=== PATIENT | male | born 1990 | race Caucasian/White ===

== ENCOUNTER → 2018-02-13 14:41 | Outpatient (CLI) | payer MEDICAID, SELFPAY ==
[2018-02-13 15:22] LABS: Absolute Lymphocyte Count 3.15 X10^3/ul (0.83-4.51); Absolute Neutrophil Count 3.2 X10^3/uL (2.0-7.7); Basophil# 0.01 X10^3/uL; Basophil% 0.1 % (0-1); Eosinophil# 0.17 X10^3/uL; Eosinophils% 2.3 % (0-5); Hemoglobin 14.8 g/dl (13.0-16.5); Lymphocyte # 3.15 X10^3/ul (4.0); Lymphocyte % 42.5 % (19-41); Mean Corp Hgb Conc 33.6 g/gl (32-36); Mean Corpuscular Hgb 30.6 pg (27.0-32.0); Mean Corpuscular Volume 90.9 fL (80-94); Mean Platelet Vol. 9.4 fl (6.2-12.0); Monocyte# 0.93 X10^3/uL; Monocyte% 12.5 % (0-10); Neutrophil # 3.15 X10^3/uL (2.7-7.7); Neutrophil % 42.5 % (47-70); Platelet Count 186 K/mm3 (150-450); RBC Distribution Width CV 13.1 % (11.6-14.6); RBC Distribution Width SD 43.2 fl (35.1-43.9); Red Blood Count 4.84 M/mm3 (4.6-6.2); White Blood Count 7.4 K/mm3 (4.4-11.0)
[2018-02-13 15:26] LABS: POSITIVE COUNT NO; POSITIVE DIFFERENTIAL NO; POSITIVE MORPHOLOGY NO
[2018-02-13 16:02] LABS: ALB/GLOB Ratio 1.1 RATIO (0.9-2.4); AST(SGOT) 28 U/L (15-37); Alanine Aminotransfer ALT/SGPT 42 U/L (16-61); Alkaline Phosphatase 79 U/L (45-117); Anion Gap 8 (5-15); BUN 20 mg/dL (7-18); BUN/Creat Ratio 26.9 RATIO (10-20); Calcium,Total 8.7 mg/dL (8.5-10.1); Chloride 103 mmol/L (98-107); Creatinine, Serum 0.74 mg/dL (0.70-1.30); EST Glomerular Filtration Rate 135 mL/min (>60); Est Glom Filt Rate - Afr Amer 164 mL/min (>60); Globulin 3.7 g/dL (2.2-4.2); Glucose 99 mg/dL (74-106); Potassium 3.9 mmol/L (3.5-5.1); Protein, Total 7.7 g/dL (6.4-8.2); Sodium Level 139 mmol/L (136-145); Thyroid Stim Hormone (TSH) 1.19 uIU/mL (0.358-3.74)
[2018-02-16 11:22] LABS: Hep C Antibodies 0.1 s/co ratio (0.0-0.9)
== END ==
LOC: LABSURVEY 15:09 → LAB 15:11
PROVIDERS: Family Provider Internal Medicine; PCP Internal Medicine; Visit Provider Nurse Practitioner Family
DX: Z13.0 Encounter for screening for diseases of the blood and blood-forming organs and certain disorders involving the immune mechanism (principal); F41.9 Anxiety disorder, unspecified; Z87.898 Personal history of other specified conditions
CPT/HCPCS: 36415; 80053; 84443; 85025; 86803

== ENCOUNTER → 2018-04-17 14:00 | Outpatient (CLI) | payer MEDICAID, SELFPAY ==
[2018-04-18 11:08] LABS: Color, Urine Yellow (Yellow); Glucose, Dipstick Normal (Normal); Ketone-Dipstick 5 mg/dl (Negative); Leukocyte Esterase-Dipstick 25 /ul (Negative); Nitrite-Dipstick Negative (Negative); Occult Blood-Urine 10 /ul (Negative); Protein-Dipstick 15 mg/dl (Negative); Urine Clarity Turbid (Clear); Urine Urobilinogen 8 mg/dl (Normal)
[2018-04-18 11:10] LABS: Urine Bilirubin Dipstick 1 mg/dL (Negative)
[2018-04-18 11:18] LABS: Amorphous Sediment 4+; Bacteria 0 SEEN /hpf (None Seen); Mucous, Urine 0 SEEN /hpf (<or=2+); Red Blood Cells-Urine 0 SEEN /hpf (0-5); Squamous Epithelial Cells - UA 0 SEEN /hpf (0-5); White Blood Cells 0 SEEN /hpf (0-5)
== END ==
PROVIDERS: Family Provider Internal Medicine; PCP Internal Medicine; Visit Provider Internal Medicine
DX: R39.89 Other symptoms and signs involving the genitourinary system (principal); Z87.898 Personal history of other specified conditions
CPT/HCPCS: 81001

== ENCOUNTER 2018-05-26 12:01 | Emergency (ER) | payer MEDICAID, SELFPAY ==
[2018-05-26 12:01] VITALS: BP 129/75; PULSE 103; RESP 18; TEMP 37; O2SAT 96; BMI 31.8
--- NOTE | 2018-05-26 12:34 | ED.VISSUMM ---
- ER Visit Summary Date of Service: 05/26/18 Chief Complaint: Left knee cellulitis History of Present Illness: The patient is a 28 M who presents with redness and swelling to his left knee that has been getting worse over the past 3 days. Patient states his pain is aching and worse with any movement. Patient states his pain is also worse with ambulation. Patient denies any fevers or chills. Patient states he was able to express some drainage from a pustule over the anterior aspect of his knee. Patient denies any nausea or vomiting. Physical Examination: Vital signs are stable. Patient is afebrile. Patient is in no acute distress. Oral mucosa is pink and moist. Neck is supple. There is good range of motion. Musculoskeletal exam reveals some erythema, warmth, and tenderness over the anterior aspect of the left knee. There is no joint effusion noted. There is no active discharge or drainage. There is a small pustule of the anterior aspect of the knee. There is no pain with short arc range of motion. The remaining physical exam is within normal limits. Emergency Department Course and Treatment: Patient was given a dose of clindamycin here. Patient was given prescription for clindamycin. Patient was instructed to follow-up with his primary care physician in 2-3 days. Patient was instructed to return if worse in any way. Patient understood and was agreeable with the plan. All questions were answered. Disposition: Discharged home Impression: Left knee cellulitis This note was generated with [employer] dictation software. It may contain incorrect words, spelling, and punctuation that were not noted in review of the chart prior to signing ED Disposition - Plan for ED Patient: Disposition: Home or Assisted Living Chief Complaint: Cellulitis Diagnosis: Cellulitis of knee, left Instructions: Discharge Instructions for Cellulitis Prescriptions: Clindamycin HCl 300 mg PO [id number] 10 Days #40 cap Referrals: Sandrine Chavez MD [Primary Care Provider] -
--- NOTE | 2018-05-26 12:42 | ED.DCSUM_ITS ---
- ER Visit Summary Date of Service: 05/26/18 Chief Complaint: Left knee cellulitis History of Present Illness: The patient is a 28 M who presents with redness and swelling to his left knee that has been getting worse over the past 3 days. Patient states his pain is aching and worse with any movement. Patient states his pain is also worse with ambulation. Patient denies any fevers or chills. Patient states he was able to express some drainage from a pustule over the anterior aspect of his knee. Patient denies any nausea or vomiting. Physical Examination: Vital signs are stable. Patient is afebrile. Patient is in no acute distress. Oral mucosa is pink and moist. Neck is supple. There is good range of motion. Musculoskeletal exam reveals some erythema, warmth, and tenderness over the anterior aspect of the left knee. There is no joint effusion noted. There is no active discharge or drainage. There is a small pustule of the anterior aspect of the knee. There is no pain with short arc range of motion. The remaining physical exam is within normal limits. Emergency Department Course and Treatment: Patient was given a dose of clindamycin here. Patient was given prescription for clindamycin. Patient was instructed to follow-up with his primary care physician in 2-3 days. Patient was instructed to return if worse in any way. Patient understood and was agreeable with the plan. All questions were answered. Disposition: Discharged home Impression: Left knee cellulitis This note was generated with [employer] dictation software. It may contain incorrect words, spelling, and punctuation that were not noted in review of the chart prior to signing ED Disposition - Plan for ED Patient: Disposition: Home or Assisted Living Chief Complaint: Cellulitis Diagnosis: Cellulitis of knee, left Instructions: Discharge Instructions for Cellulitis Prescriptions: Clindamycin HCl 300 mg PO [id number] 10 Days #40 cap Referrals: Sandrine Chavez MD [Primary Care Provider] -
[2018-05-26 14:32] VITALS: BP 130/84; PULSE 77; RESP 18; O2SAT 97
== END 2018-05-26 14:33 | disposition home or self-care (01) ==
PROVIDERS: Emergency Provider Emergency Medicine; Family Provider Internal Medicine; PCP Internal Medicine
DX: L03.116 Cellulitis of left lower limb (principal); B96.89 Other specified bacterial agents as the cause of diseases classified elsewhere; Z72.0 Tobacco use
CPT/HCPCS: 96365; 99283; A4216

== ENCOUNTER 2018-05-27 22:18 | Inpatient (IN) | payer MEDICAID, SELFPAY ==
[2018-05-27 22:20] VITALS: BP 126/67; PULSE 110; RESP 18; TEMP 37.3; O2SAT 97; BMI 32.1
--- NOTE | 2018-05-27 23:00 | RAD_ITS ---
STUDY: X-RAY - LEFT KNEE REASON FOR EXAM: Male, 28 years old. Cellulitis TECHNIQUE: 4 view(s) of the knee. COMPARISON: None. FINDINGS: Normal visualized distal femur. Normal visualized proximal tibia and fibula. Normal proximal tibiofibular articulation. There is a bipartite variation of the patella. Normal medial femorotibial compartment. Normal lateral femorotibial compartment. Normal patellofemoral articulation. There is prepatellar soft tissue swelling. There is NO mass. There is NO joint effusion. RAD/Knee 4 or More Views IMPRESSION: There is NO acute bony abnormality. There is prepatellar soft tissue swelling. There is NO mass. There is NO joint effusion. Electronically Signed: Piter Verdin MD at 0:40 EDT , Service support ,
[2018-05-27 23:31] VITALS: RESP 18
[2018-05-27 23:56] LABS: Anion Gap 9 (5-15); BUN 15 mg/dL (7-18); BUN/Creat Ratio 17.8 RATIO (10-20); Calcium,Total 8.6 mg/dL (8.5-10.1); Chloride 101 mmol/L (98-107); Creatinine, Serum 0.84 mg/dL (0.70-1.30); EST Glomerular Filtration Rate 117 mL/min (>60); Est Glom Filt Rate - Afr Amer 141 mL/min (>60); Estimated Creatinine Clearance 146.27 ml/min; Glucose 105 mg/dL (74-106); Potassium 3.8 mmol/L (3.5-5.1); Sodium Level 137 mmol/L (136-145)
--- NOTE | 2018-05-28 00:27 | ED.DCSUM_ITS ---
- ER Visit Summary Date of Service: 05/28/18 Chief Complaint: Left knee infection History of Present Illness: The patient is a 28 M with a left knee infection. He was seen in the ED yesterday. This started as an infected follicle and has spread to his left anterior knee region. He was seen in the ED, had a dose of IV clindamycin, and then went home on oral clindamycin. Since discharge, the erythema has doubled in size. He is starting to feel sick and he is having subjective fevers. Physical Examination: Heart rate 110 otherwise vitals normal. Nontoxic and in no acute distress. Left anterior knee shows erythema warmth and mild edema. There is a lateral abrasion and signs of a folliculitis. No definite fluctuance or abscess. He has good range of motion. He is neurovascular intact distally. The remainder of his exam is unremarkable. Test Results: Labs, cultures, xrays pending. Emergency Department Course and Treatment: Patient presents with failed outpatient treatment for cellulitis. Given his subjective fever and malaise, I did obtain labs and an x-ray. Hospitalist requested a lactate because he was tachycardic. Patient was treated with vancomycin. Oncoming doctor will check the results. Patient will be admitted. Treatment Plan: As above Disposition: Admission Impression: 1. Left leg cellulitis This note was generated with [employer] dictation software. It may contain incorrect words, spelling, and punctuation that were not noted in review of the chart prior to signing ED Disposition - Plan for ED Patient: Chief Complaint: Cellulitis Referrals: Sandrine Chavez MD [Primary Care Provider] -
[2018-05-28 00:29] VITALS: BP 114/62; PULSE 89; RESP 18; TEMP 37.5; O2SAT 97
--- NOTE | 2018-05-28 00:51 | PCM.HP.STD ---
Problem List (1) Tobacco abuse Status: Chronic (2) Insomnia Status: Chronic (3) Depression Status: Chronic Qualifiers: (4) Anxiety Status: Chronic History of Present Illness Date of Admission: 05/28/18 Chief Complaint: Left knee pain, swelling and redness. The patient is a 28 year old M with past medical history as mentioned above presented to the emergency room because of left knee pain, swelling and redness. Her symptoms started 3 days ago with small pimple on his left knee surrounded by erythema. He was seen yesterday in the emergency department and he was sent home on antibiotics. He came back today because of worsening symptoms. His main complaint is left knee pain, described as sharp pain, 8 out of 10 in severity, extends up to the lower one third of the left thigh, associated with swelling and redness of the left knee, aggravated by bending his left knee and relieved by rest, associated with subjective fever at home. He mentioned that the swelling and erythema of the left knee got significantly worse than yesterday. He was given clindamycin yesterday which he has been taking without improvement. He denied recent trauma or mechanical fall. In the emergency department, he was tachycardic, other vital signs were stable. His routine blood work revealed minimal leukocytosis, otherwise normal. Lactic acid was normal. X-ray of the left knee revealed soft tissue swelling no other acute findings. He is being admitted for left knee cellulitis with failure of outpatient therapy. Past Medical History Past Medical History (Chronic Problems): Chronic Problems (Last Updated 05/28/18 @ 00:51 by José Manuel Joiner MD) Tobacco abuse (Chronic) Insomnia (Chronic) Depression (Chronic) Anxiety (Chronic) Medical History: Medical History (Last Updated 05/28/18 @ 00:51 by José Manuel Joiner MD) Anxiety (Chronic) F41.9 Allergies Penicillins Adverse Reaction (Verified 05/27/18 22:19) Unknown Home Medications: Ambulatory Orders Medication Instructions Recorded Clindamycin HCl 300 mg PO [id number] 10 Days #40 05/26/18 cap Surgical History: Surgical History (Last Reviewed 04/17/18 @ 16:04 by Jigna Gleason) History of tonsillectomy Z98.890, Z90.89 history of facial reconstruction following an accident Surgical History: - - Adenoidectomy. Psychiatric History: Anxiety, Depression Smoking Status: Current every day smoker Alcohol: None Drugs: None - *Family History Maternal Family History: Family History (Last Reviewed 04/17/18 @ 16:04 by Jigna Gleason) Father Myocardial infarction, Onset Age: 40 Grandfather Diabetes History Items: No pertinent history Paternal Family History: Family History (Last Reviewed 04/17/18 @ 16:04 by Jigna Gleason) Father Myocardial infarction, Onset Age: 40 Grandfather Diabetes History Items: No pertinent history Review of Systems Constitutional: Reports: Fever, Malaise, Weakness. Denies: Anorexia, Chills Eyes: Denies: Blurred vision, Double vision, Drainage, Redness HEENT: Denies: Difficulty Hearing, Ear Pain, Eye Pain, Nasal Congestion, Sore Throat Cardiovascular: Denies: Chest Pain, Chest Pressure, Chest Tightness, Heaviness, Light Headedness, Palpitations, Syncope Respiratory: Denies: Cough, Pleuritic Pain, Shortness of Breath, Sputum production, Wheezing Gastrointestinal: Denies: Abdominal Pain, Constipation, Diarrhea, Nausea, Vomiting Genitourinary: Denies: Dysuria, Frequency, Hematuria Musculoskeletal: Reports: Joint Pain. Denies: Arm Pain, Back Pain Skin: Denies: Dryness, Rash Neurological: Denies: Balance problems, Blurred vision, Double vision, Slurred speech, Confusion, Headaches, Incoordination Psychiatric: Reports: Anxiety, Depression Endocrine: Denies: Change in Body Habitus, Polydipsia VTE Information - Inpt Only VTE Present on Admission: No VTE Mechan Device Prophylaxis: None VTE Pharm Prophylaxis ordered?: No - Physical Exam General: Alert, Oriented x3, Cooperative, No apparent distress HEENT: Atraumatic, PERRLA, EOMI, Normocephalic Oral: Moist Mucosa, No Gingival or Mucosal Lesions/ Ulcerations Neck: Supple, No JVD, Negative Carotid Bruits, Trachea Midline, Thyroid Normal Size and Texture Lungs: Clear to auscultation, Normal air movement, No rhonchi, No wheeze, No rales Cardiovascular: Regular rate, Regular Rhythm, Normal S1, Normal S2, No murmurs, Tachycardic Abdomen: Bowel Sounds Present, Soft, Non Tender, Non-Distended, No Hepato-splenomegaly Extremities: No clubbing, No cyanosis, No edema Skin: No rashes, No breakdown, - - Left knee: Erythema and swelling overlying the left knee, tender to palpation, hot to palpation, couple of small dry wounds. Lymphatic: No Cervical, Supraclavicular, or Inguinal Adenopathy Neurological: Cranial nerves II-XII grossly intact, Motor Exam 5/5 strength throughout Psych/Mental Status: Normal Affect, Appropriate, Alert and oriented to time, place, person, mood and affect Vital Signs Temp Pulse Resp BP Pulse Ox 99.5 F H 89 18 114/62 97 05/28/18 00:29 05/28/18 00:29 05/28/18 00:29 05/28/18 00:29 05/28/18 00:29 Oxygen Delivery Method Room Air Weight: 236 lb 8.896 oz Body Mass Index (BMI) 32.1 Laboratory Tests Past 24 Hrs 05/27/18 05/27/18 05/28/18 23:20 23:20 00:25 WBC Pending RBC Pending Hgb Pending Hct Pending MCV Pending MCH Pending MCHC Pending RDW Pending RDW Differential Pending Plt Count Pending Neut % (Auto) Pending Absolute Neuts (auto) Pending Total Counted Pending Sodium 137 Potassium 3.8 Chloride 101 Carbon Dioxide 27.0 Anion Gap 9 BUN 15 Creatinine 0.84 Estim Creat Clear Calc 146.27 Est GFR (MDRD) Af Amer 141 Est GFR (MDRD) Non-Af 117 BUN/Creatinine Ratio 17.8 Glucose 105 Lactic Acid Pending Calcium 8.6 Clinical Impression(s) from Imaging Studies Knee X-Ray 05/27/18 23:00 IMPRESSION: There is NO acute bony abnormality. There is prepatellar soft tissue swelling. There is NO mass. There is NO joint effusion. Electronically Signed: Piter Verdin MD at 0:40 EDT , Service support , Laboratory Tests 05/28/18 05/27/18 05/27/18 Range/Units 00:25 23:20 23:20 WBC 11.7 H (4.4-11.0) K/mm3 RBC 4.60 (4.6-6.2) M/mm3 Hgb 14.6 (13.0-16.5) g/dl Hct 42.0 (40-54) % MCV 91.3 (80-94) fL MCH 31.7 (27.0-32.0) pg MCHC 34.8 (32-36) g/gl RDW 12.4 (11.6-14.6) % RDW Differential 41.0 (35.1-43.9) fl Plt Count 176 (150-450) K/mm3 MPV 9.7 (6.2-12.0) fl Immature Gran % (Auto) 0.300 (0.0-0.9) % Neut % (Auto) 76.5 H (47-70) % Lymph % (Auto) 12.7 L (19-41) % [place] % (Auto) 9.5 (0-10) % Eos % (Auto) 0.9 (0-5) % Baso % (Auto) 0.1 (0-1) % Absolute Neuts (auto) 9.0 H (2.0-7.7) X10^3/uL Absolute Lymphs (auto) 1.48 (0.83-4.51) X10^3/ul Total Counted Not Reportable Sodium 137 (136-145) mmol/L Potassium 3.8 (3.5-5.1) mmol/L Chloride 101 (98-107) mmol/L Carbon Dioxide 27.0 (21.0-32.0) mmol/L Anion Gap 9 (5-15) BUN 15 (7-18) mg/dL Creatinine 0.84 (0.70-1.30) mg/dL Estim Creat Clear Calc 146.27 ml/min Est GFR (MDRD) Af Amer 141 (>60) mL/min Est GFR (MDRD) Non-Af 117 (>60) mL/min BUN/Creatinine Ratio 17.8 (10-20) RATIO Glucose 105 (74-106) mg/dL Lactic Acid 0.9 (0.4-2.0) mmol/L Calcium 8.6 (8.5-10.1) mg/dL Assessment/Plan This is a 28 years old male patient presented to the emergency room because of worsening left knee pain, erythema and swelling and he was found to have acute cellulitis of the left knee with failure of outpatient therapy. #1 acute cellulitis of the left knee: Clinically, the infection seemed to be superficially. Acute septic arthritis cannot be ruled out at this time. No evidence of sepsis or severe sepsis. Lactic acid is normal. He was tachycardic, heart rate improved with IV fluids. Patient was on clindamycin as outpatient without improvement. X-ray of the left knee revealed soft tissue swelling, no other findings. [facility], cardiac monitoring, IV fluids, IV Toradol, as needed, OxyIR as needed, start IV cefazolin, MRSA routine screening, orthopedic surgery consult for evaluation to rule out septic arthritis, PT OT evaluation and treatment. #2 anxiety/depression: He is not on medication at this time. Denies any symptoms or suicidal ideations. #3 tobacco abuse: NicoDerm patch if desired. #4 DVT prophylaxis: Low risk patient, ambulate. This note was generated with [employer] dictation software. It may contain incorrect words, spelling, and punctuation that were not noted in checking the note before signing. Code Visit Inpatient E&M: 64460 Init Hosp L3
[2018-05-28 00:55] LABS: Lactic Acid 0.9 mmol/L (0.4-2.0)
--- NOTE | 2018-05-28 00:56 | HP.PCM_ITS ---
Problem List (1) Tobacco abuse Status: Chronic (2) Insomnia Status: Chronic (3) Depression Status: Chronic Qualifiers: (4) Anxiety Status: Chronic History of Present Illness Date of Admission: 05/28/18 Chief Complaint: Left knee pain, swelling and redness. The patient is a 28 year old M with past medical history as mentioned above presented to the emergency room because of left knee pain, swelling and redness. Her symptoms started 3 days ago with small pimple on his left knee surrounded by erythema. He was seen yesterday in the emergency department and he was sent home on antibiotics. He came back today because of worsening symptoms. His main complaint is left knee pain, described as sharp pain, 8 out of 10 in severity, extends up to the lower one third of the left thigh, associated with swelling and redness of the left knee, aggravated by bending his left knee and relieved by rest, associated with subjective fever at home. He mentioned that the swelling and erythema of the left knee got significantly worse than yesterday. He was given clindamycin yesterday which he has been taking without improvement. He denied recent trauma or mechanical fall. In the emergency department, he was tachycardic, other vital signs were stable. His routine blood work revealed minimal leukocytosis, otherwise normal. Lactic acid was normal. X-ray of the left knee revealed soft tissue swelling no other acute findings. He is being admitted for left knee cellulitis with failure of outpatient therapy. Past Medical History Past Medical History (Chronic Problems): Chronic Problems (Last Updated 05/28/18 @ 00:51 by José Manuel Joiner MD) Tobacco abuse (Chronic) Insomnia (Chronic) Depression (Chronic) Anxiety (Chronic) Medical History: Medical History (Last Updated 05/28/18 @ 00:51 by José Manuel Joiner MD) Anxiety (Chronic) F41.9 Allergies Penicillins Adverse Reaction (Verified 05/27/18 22:19) Unknown Home Medications: Ambulatory Orders Medication Instructions Recorded Clindamycin HCl 300 mg PO [id number] 10 Days #40 05/26/18 cap Surgical History: Surgical History (Last Reviewed 04/17/18 @ 16:04 by Jigna Gleason) History of tonsillectomy Z98.890, Z90.89 history of facial reconstruction following an accident Surgical History: - - Adenoidectomy. Psychiatric History: Anxiety, Depression Smoking Status: Current every day smoker Alcohol: None Drugs: None - *Family History Maternal Family History: Family History (Last Reviewed 04/17/18 @ 16:04 by Jigna Gleason) Father Myocardial infarction, Onset Age: 40 Grandfather Diabetes History Items: No pertinent history Paternal Family History: Family History (Last Reviewed 04/17/18 @ 16:04 by Jigna Gleason) Father Myocardial infarction, Onset Age: 40 Grandfather Diabetes History Items: No pertinent history Review of Systems Constitutional: Reports: Fever, Malaise, Weakness. Denies: Anorexia, Chills Eyes: Denies: Blurred vision, Double vision, Drainage, Redness HEENT: Denies: Difficulty Hearing, Ear Pain, Eye Pain, Nasal Congestion, Sore Throat Cardiovascular: Denies: Chest Pain, Chest Pressure, Chest Tightness, Heaviness, Light Headedness, Palpitations, Syncope Respiratory: Denies: Cough, Pleuritic Pain, Shortness of Breath, Sputum production, Wheezing Gastrointestinal: Denies: Abdominal Pain, Constipation, Diarrhea, Nausea, Vomiting Genitourinary: Denies: Dysuria, Frequency, Hematuria Musculoskeletal: Reports: Joint Pain. Denies: Arm Pain, Back Pain Skin: Denies: Dryness, Rash Neurological: Denies: Balance problems, Blurred vision, Double vision, Slurred speech, Confusion, Headaches, Incoordination Psychiatric: Reports: Anxiety, Depression Endocrine: Denies: Change in Body Habitus, Polydipsia VTE Information - Inpt Only VTE Present on Admission: No VTE Mechan Device Prophylaxis: None VTE Pharm Prophylaxis ordered?: No - Physical Exam General: Alert, Oriented x3, Cooperative, No apparent distress HEENT: Atraumatic, PERRLA, EOMI, Normocephalic Oral: Moist Mucosa, No Gingival or Mucosal Lesions/ Ulcerations Neck: Supple, No JVD, Negative Carotid Bruits, Trachea Midline, Thyroid Normal Size and Texture Lungs: Clear to auscultation, Normal air movement, No rhonchi, No wheeze, No rales Cardiovascular: Regular rate, Regular Rhythm, Normal S1, Normal S2, No murmurs, Tachycardic Abdomen: Bowel Sounds Present, Soft, Non Tender, Non-Distended, No Hepato- splenomegaly Extremities: No clubbing, No cyanosis, No edema Skin: No rashes, No breakdown, - - Left knee: Erythema and swelling overlying the left knee, tender to palpation, hot to palpation, couple of small dry wounds. Lymphatic: No Cervical, Supraclavicular, or Inguinal Adenopathy Neurological: Cranial nerves II-XII grossly intact, Motor Exam 5/5 strength throughout Psych/Mental Status: Normal Affect, Appropriate, Alert and oriented to time, place, person, mood and affect Vital Signs Temp Pulse Resp BP Pulse Ox 99.5 F H 89 18 114/62 97 05/28/18 00:29 05/28/18 00:29 05/28/18 00:29 05/28/18 00:29 05/28/18 00:29 Oxygen Delivery Method Room Air Weight: 236 lb 8.896 oz Body Mass Index (BMI) 32.1 Laboratory Tests Past 24 Hrs 05/27/18 05/27/18 05/28/18 23:20 23:20 00:25 WBC Pending RBC Pending Hgb Pending Hct Pending MCV Pending MCH Pending MCHC Pending RDW Pending RDW Differential Pending Plt Count Pending Neut % (Auto) Pending Absolute Neuts (auto) Pending Total Counted Pending Sodium 137 Potassium 3.8 Chloride 101 Carbon Dioxide 27.0 Anion Gap 9 BUN 15 Creatinine 0.84 Estim Creat Clear Calc 146.27 Est GFR (MDRD) Af Amer 141 Est GFR (MDRD) Non-Af 117 BUN/Creatinine Ratio 17.8 Glucose 105 Lactic Acid Pending Calcium 8.6 Clinical Impression(s) from Imaging Studies Knee X-Ray 05/27/18 23:00 IMPRESSION: There is NO acute bony abnormality. There is prepatellar soft tissue swelling. There is NO mass. There is NO joint effusion. Electronically Signed: Piter Verdin MD at 0:40 EDT , Service support , Laboratory Tests 3 05/28/18 05/27/18 05/27/18 Range/Units 00:25 23:20 23:20 WBC 11.7 H (4.4-11.0) K/mm3 RBC 4.60 (4.6-6.2) M/mm3 Hgb 14.6 (13.0-16.5) g/dl Hct 42.0 (40-54) % MCV 91.3 (80-94) fL MCH 31.7 (27.0-32.0) pg MCHC 34.8 (32-36) g/gl RDW 12.4 (11.6-14.6) % RDW Differential 41.0 (35.1-43.9) fl Plt Count 176 (150-450) K/mm3 MPV 9.7 (6.2-12.0) fl Immature Gran % (Auto) 0.300 (0.0-0.9) % Neut % (Auto) 76.5 H (47-70) % Lymph % (Auto) 12.7 L (19-41) % [place] % (Auto) 9.5 (0-10) % Eos % (Auto) 0.9 (0-5) % Baso % (Auto) 0.1 (0-1) % Absolute Neuts (auto) 9.0 H (2.0-7.7) X10^3/uL Absolute Lymphs (auto) 1.48 (0.83-4.51) X10^3/ul Total Counted Not Reportable Sodium 137 (136-145) mmol/L Potassium 3.8 (3.5-5.1) mmol/L Chloride 101 (98-107) mmol/L Carbon Dioxide 27.0 (21.0-32.0) mmol/L Anion Gap 9 (5-15) BUN 15 (7-18) mg/dL Creatinine 0.84 (0.70-1.30) mg/dL Estim Creat Clear Calc 146.27 ml/min Est GFR (MDRD) Af Amer 141 (>60) mL/min Est GFR (MDRD) Non-Af 117 (>60) mL/min BUN/Creatinine Ratio 17.8 (10-20) RATIO Glucose 105 (74-106) mg/dL Lactic Acid 0.9 (0.4-2.0) mmol/L Calcium 8.6 (8.5-10.1) mg/dL Assessment/Plan This is a 28 years old male patient presented to the emergency room because of worsening left knee pain, erythema and swelling and he was found to have acute cellulitis of the left knee with failure of outpatient therapy. #1 acute cellulitis of the left knee: Clinically, the infection seemed to be superficially. Acute septic arthritis cannot be ruled out at this time. No evidence of sepsis or severe sepsis. Lactic acid is normal. He was tachycardic , heart rate improved with IV fluids. Patient was on clindamycin as outpatient without improvement. X-ray of the left knee revealed soft tissue swelling, no other findings. [facility]: [facility], cardiac monitoring, IV fluids, IV Toradol, as needed, OxyIR as needed, start IV cefazolin, MRSA routine screening, orthopedic surgery consult for evaluation to rule out septic arthritis, PT OT evaluation and treatment. #2 anxiety/depression: He is not on medication at this time. Denies any symptoms or suicidal ideations. #3 tobacco abuse: NicoDerm patch if desired. #4 DVT prophylaxis: Low risk patient, ambulate. This note was generated with [employer] dictation software. It may contain incorrect words, spelling, and punctuation that were not noted in checking the note before signing. Code Visit Inpatient E&M: 62931 Init Hosp L3
[2018-05-28 01:00] LABS: Absolute Lymphocyte Count 1.48 X10^3/ul (0.83-4.51); Basophil# 0.01 X10^3/uL; Basophil% 0.1 % (0-1); Eosinophils% 0.9 % (0-5); Hemoglobin 14.6 g/dl (13.0-16.5); Lymphocyte # 1.48 X10^3/ul (4.0); Lymphocyte % 12.7 % (19-41); Mean Corp Hgb Conc 34.8 g/gl (32-36); Mean Corpuscular Hgb 31.7 pg (27.0-32.0); Mean Corpuscular Volume 91.3 fL (80-94); Mean Platelet Vol. 9.7 fl (6.2-12.0); Monocyte# 1.11 X10^3/uL; Monocyte% 9.5 % (0-10); Neutrophil # 8.95 X10^3/uL (2.7-7.7); Neutrophil % 76.5 % (47-70); POSITIVE COUNT NO; POSITIVE DIFFERENTIAL NO; POSITIVE MORPHOLOGY NO; Platelet Count 176 K/mm3 (150-450); RBC Distribution Width CV 12.4 % (11.6-14.6); White Blood Count 11.7 K/mm3 (4.4-11.0)
[2018-05-28 01:35] VITALS: BMI 32.1; BMI 32.2
[2018-05-28 01:44] VITALS: BP 96/43; PULSE 83; RESP 18; TEMP 36.6; O2SAT 98
[2018-05-28] MEDS: 0.9% Normal Saline 1,000 ML 100 ML IV ×2 (01:51→14:22)
--- NOTE | 2018-05-28 02:00 | NURSING ---
0200 PT REQUESTED PAIN MEDICATIONS. WAS SLEEPING WHEN THIS RN RETURNED W/OXYIR. WILL MONITOR.
[2018-05-28] MEDS: Cefazolin 2 GM in 0.9% Normal Saline 100 ML IV (05:24)
[2018-05-28] MEDS: Ketorolac 30 MG/ML Syringe IV ×3 (05:24→22:33)
[2018-05-28] MEDS: 0.9% NaCl Peripheral Flush Adult/Peds IV (05:25)
[2018-05-28 05:32] VITALS: BP 105/53; PULSE 83; RESP 18; TEMP 37.1; O2SAT 96
[2018-05-28 06:30] LABS: Probe Check PASS; Staph aureus DNA By PCR POSITIVE (Negative)
[2018-05-28 06:31] LABS: M R Staph aureus DNA By PCR POSITIVE (Negative)
[2018-05-28 07:39] LABS: Absolute Lymphocyte Count 0.92 X10^3/ul (0.83-4.51); Absolute Neutrophil Count 7.2 X10^3/uL (2.0-7.7); Basophil# 0.01 X10^3/uL; Basophil% 0.1 % (0-1); Eosinophil# 0.15 X10^3/uL; Eosinophils% 1.6 % (0-5); Hematocrit 41.4 % (40-54); Hemoglobin 14.1 g/dl (13.0-16.5); Lymphocyte # 0.92 X10^3/ul (4.0); Lymphocyte % 10.1 % (19-41); Mean Corp Hgb Conc 34.1 g/gl (32-36); Mean Corpuscular Hgb 31.5 pg (27.0-32.0); Mean Corpuscular Volume 92.6 fL (80-94); Mean Platelet Vol. 9.7 fl (6.2-12.0); Monocyte# 0.82 X10^3/uL; Neutrophil # 7.22 X10^3/uL (2.7-7.7); Neutrophil % 78.9 % (47-70); Platelet Count 170 K/mm3 (150-450); RBC Distribution Width CV 12.5 % (11.6-14.6); RBC Distribution Width SD 41.9 fl (35.1-43.9); Red Blood Count 4.47 M/mm3 (4.6-6.2); White Blood Count 9.2 K/mm3 (4.4-11.0)
[2018-05-28 07:57] LABS: POSITIVE COUNT NO; POSITIVE DIFFERENTIAL NO; POSITIVE MORPHOLOGY NO
--- NOTE | 2018-05-28 08:05 | PCM.RX.CS ---
Consult Pharmacy has been consulted to manage selected antiobiotic: Vancomycin Type of Consult: New start Suspected Infection: Skin/Soft tissue Prior Doses of Antibiotics Received/Current Regimen: Medications Discontinued Medications Vancomycin HCl 1,500 mg/ (Sodium Chloride) 530 mls @ 250 mls/hr IV X1 ONE Stop: 05/28/18 01:07 Last Admin: 05/27/18 23:30 Dose: 250 mls/hr Labs: Sodium 137 mmol/L (136-145) 05/27/18 23:20 Potassium 3.8 mmol/L (3.5-5.1) 05/27/18 23:20 Chloride 101 mmol/L (98-107) 05/27/18 23:20 Carbon Dioxide 27.0 mmol/L (21.0-32.0) 05/27/18 23:20 Anion Gap 9 (5-15) 05/27/18 23:20 BUN 15 mg/dL (7-18) 05/27/18 23:20 Creatinine 0.84 mg/dL (0.70-1.30) 05/27/18 23:20 Est GFR (MDRD) Af Amer 141 mL/min (>60) 05/27/18 23:20 Est GFR (MDRD) Non-Af 117 mL/min (>60) 05/27/18 23:20 BUN/Creatinine Ratio 17.8 RATIO (10-20) 05/27/18 23:20 Glucose 105 mg/dL (74-106) 05/27/18 23:20 Weight used for dosin kg Estimated Creatinine Clearance: > 100 Goal Trough: 10-15 mcg/mL Pharmacy Plan for Drug Dosing: Initial vanc dose 1500mg IV x1, recommend to continue 1500mg IV q8h. Check trough prior to dose morning. Pharmacy Service will continue to monitor and adjust dosing as required. Follow-Up Labs: Trough Vancomycin - 05/29/18 @ 0800
[2018-05-28 10:00] VITALS: BP 103/60; PULSE 76; RESP 16; TEMP 36.7; O2SAT 95
[2018-05-28] MEDS: oxyCODONE 5 MG Tablet PO ×2 (10:07→22:33)
--- NOTE | 2018-05-28 11:22 | CON.PCM_ITS ---
Reason for Consult Date of Consultation: 05/28/18 Reason for Consultation: Left knee pain and redness History of Present Illness: The patient is a 28 year old M who presented to the emergency department because of left sided knee pain swelling redness. Approximately 3 days ago patient noticed a small pimple overlying his knee with surrounding redness. He went to the emergency department yesterday and was given oral antibiotics. He came back early this morning because of worsening symptoms and worsening pain and redness. He was admitted to the hospital for IV antibiotics seen that he has failed oral antibiotics. He states that he did have fevers at home however he has been afebrile during his stay. Orthopedics was consulted because of concern for septic arthritis. Past Medical History Past Medical History (Chronic Problems): Chronic Problems (Last Updated 05/28/18 @ 00:51 by José Manuel Joiner MD) Tobacco abuse (Chronic) Insomnia (Chronic) Depression (Chronic) Anxiety (Chronic) Medical History: Medical History (Last Updated 05/28/18 @ 00:51 by José Manuel Joiner MD) Anxiety (Chronic) F41.9 Allergies Penicillins Adverse Reaction (Verified 05/27/18 22:19) Unknown Home Medications: Ambulatory Orders Medication Instructions Recorded Clindamycin HCl 300 mg PO [id number] 10 Days #40 05/26/18 cap Surgical History: Surgical History (Last Reviewed 04/17/18 @ 16:04 by Jigna Gleason) History of tonsillectomy Z98.890, Z90.89 history of facial reconstruction following an accident Surgical History: - - Adenoidectomy. Psychiatric History: Anxiety, Depression Smoking Status: Current every day smoker Alcohol: None Drugs: None - *Family History Maternal Family History: Family History (Last Reviewed 04/17/18 @ 16:04 by Jigna Gleason) Father Myocardial infarction, Onset Age: 40 Grandfather Diabetes History Items: No pertinent history Paternal Family History: Family History (Last Reviewed 04/17/18 @ 16:04 by Jigna Gleason) Father Myocardial infarction, Onset Age: 40 Grandfather Diabetes History Items: No pertinent history Review of Systems Constitutional: Reports: Fever HEENT: Denies: Head Aches, Sinus Congestion, Sinus Drainage Cardiovascular: Denies: Chest Pain, Palpitations Respiratory: Denies: Cough, Shortness of breath at rest, Sputum production Gastrointestinal: Denies: Abdominal Pain, Nausea, Vomiting Genitourinary: Denies: Dysuria Musculoskeletal: Reports: - - Knee pain and redness Skin: Reports: - - Redness overlying left knee Neurological: Denies: Numbness, Tingling, Focal weakness Psychiatric: Denies: Anxiety, Depression, Homicidal Ideations, Suicidal Ideations - Physical Exam General: Alert, Oriented x3, Cooperative HEENT: Atraumatic, PERRLA, EOMI, Normocephalic Lungs: Normal air movement Cardiovascular: Regular rate Musculoskeletal: - - Patient has erythema overlying the anterior aspect of the knee and propagating medially. There is no fluctuance of the bursa. The nidus of infection appears to be in the prepatellar skin. This does not appear to be septic bursitis. He is able to flex and extend his knee without any significant discomfort. No calf pain is noted. He is neurovascularly intact. Extensor mechanism is intact Neurological: Cranial nerves II-XII grossly intact Vital Signs Temp Pulse Resp BP Pulse Ox 98.1 F 76 16 103/60 95 05/28/18 10:00 05/28/18 10:00 05/28/18 10:00 05/28/18 10:00 05/28/18 10:00 Oxygen Delivery Method Room Air Weight: 237 lb 14.06 oz Body Mass Index (BMI) 32.2 Intake and Output for Last 24 Hours 05/26/18 05/27/18 05/28/18 23:59 23:59 23:59 Intake Total 766 / 766 Balance 766 / 766 Laboratory Tests Past 24 Hrs 05/28/18 05/28/18 02:00 06:52 WBC 9.2 RBC 4.47 L Hgb 14.1 Hct 41.4 MCV 92.6 MCH 31.5 MCHC 34.1 RDW 12.5 RDW Differential 41.9 Plt Count 170 MPV 9.7 Immature Gran % (Auto) 0.300 Neut % (Auto) 78.9 H Lymph % (Auto) 10.1 L [place] % (Auto) 9.0 Eos % (Auto) 1.6 Baso % (Auto) 0.1 Absolute Neuts (auto) 7.2 Absolute Lymphs (auto) 0.92 Total Counted Not Reportable S.aureus Protein A PCR POSITIVE H MRSA (PCR) POSITIVE H Assessment/Plan Acute cellulitis left leg Plan: I reviewed patient's x-rays as well as lab work. Based on patient's findings and clinical examination patient does not appear to have septic arthritis. I do not feel given his lack of pain in the knee and his ability to move his knee that an aspiration is necessary. I do agree however with the need for IV antibiotics seen that the patient has failed outpatient oral therapy. I do not identify any need for surgical management and would recommend continuing IV antibiotic treatment
--- NOTE | 2018-05-28 14:10 | CASEMGMT ---
DELIO ENRIQUE Face to Face with patient for initial transition planning/care coordination assessment. RN KLAUS introduced self and role at [facility]. Patient lying in bed, alert and oriented. Patient willing to participate in assessment and is able to answer all questions appropriately. Care providers, pharmacy, and demographics verified. See link attached. Patient wishes to discharge home, denies need for home health at this time. Patient states he has no further needs or concerns at this time. CM to follow for discharge planning needs that may arise. Disposition Plan: Patient to discharge home with support of friends and follow-up plans in place
[2018-05-28 16:00] VITALS: BP 100/55; PULSE 66; RESP 16; TEMP 36.5; O2SAT 98
[2018-05-28 22:00] VITALS: BP 119/60; PULSE 79; RESP 16; TEMP 37; O2SAT 98
[2018-05-29 04:00] VITALS: BP 118/62; PULSE 70; RESP 16; TEMP 36.6; O2SAT 99
[2018-05-29] MEDS: oxyCODONE 5 MG Tablet PO ×2 (04:31→11:30)
[2018-05-29] MEDS: 0.9% Normal Saline 1,000 ML 100 ML IV (06:10)
[2018-05-29] MEDS: Ketorolac 30 MG/ML Syringe IV ×2 (06:10→13:36)
[2018-05-29 07:40] VITALS: BP 116/69; PULSE 69; RESP 18; TEMP 35.7; O2SAT 99
[2018-05-29 08:59] LABS: Vancomycin, Trough Level 20.7 ug/mL (5.0-15.0)
--- NOTE | 2018-05-29 11:35 | DCINST_ITS ---
You will use the following diet at home:: No restrictions Your food should be the consistency of: Regular Your liquids should be the consistency of: Regular/Thin Discharge Activity: Return to Normal Activity Return to work on:: 06/03/18 Weight Bearing Status: Full weight bearing Allergies/Adverse Reactions: Allergies Penicillins Adverse Reaction (Verified 05/27/18 22:19) Unknown Medications to take at Discharge Smz/Tmp Ds [Bactrim Ds] 1 tab PO BID #20 tab 05/29/18 The following prescriptions were given: Smz/Tmp Ds [Bactrim Ds] 1 tab PO BID #20 tab Primary Care Physician: Sandrine Chavez MD [Primary Care Provider] - Please follow up with your Primary Care Physician in: on 06/02/18 Test Results: Test results from this visit will be discussed in further detail at your follow- up appointment, if applicable.
[2018-05-29 13:29] VITALS: BP 109/68; PULSE 80; RESP 18; TEMP 36.6; O2SAT 98
[2018-05-29] MEDS: 0.9% NaCl Peripheral Flush Adult/Peds IV (13:36)
--- NOTE | 2018-05-29 15:10 | PCM.DC.SUM ---
Discharge Date and Diagnosis Date of Admission: 05/28/18 Date of Discharge: 05/29/18 - Primary Discharge Diagnosis #1 prepatellar cellulitis suspected to be secondary to MRSA - Secondary Discharge Diagnosis Chronic Problems (Last Updated 05/28/18 @ 00:51 by José Manuel Joiner MD) Tobacco abuse (Chronic) Insomnia (Chronic) Depression (Chronic) Anxiety (Chronic) Hospital Course and Treatment Operations: None Procedures: None Summary of Care Provided: The patient is a 28 year old M seen in the emergency room at [facility] with complaints of redness and discomfort over the service of his left kneecap. He was seen in the emergency room the day before and started on oral clindamycin after given IV clindamycin in the ER. He returned to the emergency room stating that the redness had increased in size. Physical examination in the emergency room showed no definite fluctuance or abscess over the left knee area, there was some redness of the skin along with mild edema. White blood cell count was elevated at 11.7, patient's temperature was 99.1. Patient was admitted to [facility] for cellulitis over the right knee, he was seen in consultation by orthopedic surgery who did not feel he needed surgical intervention, PCR test obtained in the emergency room from the left knee was positive for MRSA although no cultures were obtained from the wound. Patient's edema and redness improved over his hospital stay, on 05/29/18, patient was seen and examined and felt to be in stable condition for discharge home with follow-up as an outpatient. Discharge Activity: Return to Normal Activity Return to work on:: 06/03/18 Weight Bearing Status: Full weight bearing Home Medications: Medications to take at Discharge Smz/Tmp Ds [Bactrim Ds] 1 tab PO BID #20 tab 05/29/18 Following Prescrptions Were Given to Patient: Smz/Tmp Ds [Bactrim Ds] 1 tab PO BID #20 tab Primary Care Physician: Sandrine Chavez MD [Primary Care Provider] - Please follow up with your Primary Care Physician in: on 06/02/18 Disposition: Home Minutes spent on discharge:: 32 Patient Condition:: Stable Medical Necessity - Tobacco Use Smoking Status: Current every day smoker Meaningful Use Info Meaningful Use Diagnoses (Choose all that apply): None applicable Code Visit Inpatient E&M: 49360 Disch Hosp
--- NOTE | 2018-05-29 15:14 | DS.PCM_ITS ---
Discharge Date and Diagnosis Date of Admission: 05/28/18 Date of Discharge: 05/29/18 - Primary Discharge Diagnosis #1 prepatellar cellulitis suspected to be secondary to MRSA - Secondary Discharge Diagnosis Chronic Problems (Last Updated 05/28/18 @ 00:51 by José Manuel Joiner MD) Tobacco abuse (Chronic) Insomnia (Chronic) Depression (Chronic) Anxiety (Chronic) Hospital Course and Treatment Operations: None Procedures: None Summary of Care Provided: The patient is a 28 year old M seen in the emergency room at [facility] with complaints of redness and discomfort over the service of his left kneecap. He was seen in the emergency room the day before and started on oral clindamycin after given IV clindamycin in the ER. He returned to the emergency room stating that the redness had increased in size. Physical examination in the emergency room showed no definite fluctuance or abscess over the left knee area, there was some redness of the skin along with mild edema. White blood cell count was elevated at 11.7, patient's temperature was 99.1. Patient was admitted to [facility] for cellulitis over the right knee, he was seen in consultation by orthopedic surgery who did not feel he needed surgical intervention, PCR test obtained in the emergency room from the left knee was positive for MRSA although no cultures were obtained from the wound. Patient's edema and redness improved over his hospital stay, on 05/29/18, patient was seen and examined and felt to be in stable condition for discharge home with follow- up as an outpatient. Discharge Activity: Return to Normal Activity Return to work on:: 06/03/18 Weight Bearing Status: Full weight bearing Home Medications: Medications to take at Discharge Smz/Tmp Ds [Bactrim Ds] 1 tab PO BID #20 tab 05/29/18 Following Prescrptions Were Given to Patient: Smz/Tmp Ds [Bactrim Ds] 1 tab PO BID #20 tab Primary Care Physician: Sandrine Chavez MD [Primary Care Provider] - Please follow up with your Primary Care Physician in: on 06/02/18 Disposition: Home Minutes spent on discharge:: 32 Patient Condition:: Stable Medical Necessity - Tobacco Use Smoking Status: Current every day smoker Meaningful Use Info Meaningful Use Diagnoses (Choose all that apply): None applicable Code Visit Inpatient E&M: 26119 Disch Hosp
[2018-05-29 16:39] LABS: Vancomycin, Random Level 13.2 ug/mL (0.0-15.0)
--- NOTE | 2018-05-29 16:51 | PCM.RX.CS ---
Consult Pharmacy has been consulted to manage selected antiobiotic: Vancomycin Type of Consult: Follow-up Suspected Infection: Skin/Soft tissue Prior Doses of Antibiotics Received/Current Regimen: VANCOMYCIN 1500MG IV Q8H: 05/29 @0737, 1514 Labs: Sodium 137 mmol/L (136-145) 05/27/18 23:20 Potassium 3.8 mmol/L (3.5-5.1) 05/27/18 23:20 Chloride 101 mmol/L (98-107) 05/27/18 23:20 Carbon Dioxide 27.0 mmol/L (21.0-32.0) 05/27/18 23:20 Anion Gap 9 (5-15) 05/27/18 23:20 BUN 15 mg/dL (7-18) 05/27/18 23:20 Creatinine 0.84 mg/dL (0.70-1.30) 05/27/18 23:20 Est GFR (MDRD) Af Amer 141 mL/min (>60) 05/27/18 23:20 Est GFR (MDRD) Non-Af 117 mL/min (>60) 05/27/18 23:20 BUN/Creatinine Ratio 17.8 RATIO (10-20) 05/27/18 23:20 Glucose 105 mg/dL (74-106) 05/27/18 23:20 Vancomycin Trough 20.7 ug/mL (5.0-15.0) H 05/29/18 08:02 Random Vancomycin 13.2 ug/mL (0.0-15.0) 05/29/18 15:18 Goal Trough: 10-15 mcg/mL Pharmacy Plan for Drug Dosing: A trough was drawn this AM which resulted in a value of 20.1 (drawn after dose administered). Another trough was drawn prior to the next dose to check, which resulted in a value of 13.2 (7.5hrs from last dose given). This is adequate dosing given the trough is 10-15 for this patient. PLAN/RECOMMENDATIONS 1. Continue vancomycin 1500mg IV q8hrs 2. Trough scheduled 06/02 @1530 to reassess dosing at that time 3. Pharmacy Service will continue to monitor and adjust dosing as required.
== END 2018-05-29 18:43 | disposition home or self-care (01) | DRG 278 ==
LOC: ED 23:35 → MS2 05-28 00:53
PROVIDERS: Admitting Provider Hospitalist; Emergency Provider Emergency Medicine; Family Provider Internal Medicine; PCP Internal Medicine; Visit Provider Internal Medicine
DX: L03.116 Cellulitis of left lower limb (principal); B95.62 Methicillin resistant Staphylococcus aureus infection as the cause of diseases classified elsewhere; F17.200 Nicotine dependence, unspecified, uncomplicated; G47.00 Insomnia, unspecified; F32.9 Major depressive disorder, single episode, unspecified; F41.9 Anxiety disorder, unspecified
CPT/HCPCS: 36415; 73564; 80048; 80202; 83605; 85025; 87040; 87640; 96365; 97161; 97802; 99282; 99283; 99406; J7030; J7040; J7050; A4216

== ENCOUNTER 2018-10-26 11:17 | Emergency (ER) | payer MEDICAID, SELFPAY ==
[2018-10-26 11:18] VITALS: BP 118/72; PULSE 109; RESP 17; TEMP 37; O2SAT 99; BMI 26.6
[2018-10-26] MEDS: Smz/Tmp Ds Tablet 1 TABLET PO (11:34)
--- NOTE | 2018-10-26 11:44 | ED.VISSUMM ---
- ER Visit Summary Date of Service: 10/26/18 Chief Complaint: Facial abscess History of Present Illness: The patient is a 28 M who presents with a facial abscess. Is been there for 3 days. It started out as a small pimple but grew larger. He states he had a small amount of purulent drainage last night. He had some sweats but no documented fevers. He has history of a MRSA infection in the prepatellar space last year. Physical Examination: Vital signs reviewed. Skin exam reveals a 2.5 x 2.5 cm abscess to the right lower face. There is erythema and fluctuance. Test Results: None performed Emergency Department Course and Treatment: The patient was given Bactrim. Incision and drainage was performed. After verbal consent, 3 cc of lidocaine was used to anesthetize the area. A cruciate incision was made over the dome of the abscess. Moderate purulent material returned. Hemostats were used to break up any loculations was then irrigated. Patient will be placed on Bactrim for home. He will follow-up with his PCP Treatment Plan: [] Disposition: Discharge Impression: Facial abscess, 2.5 cm Incision and drainage by ED physician This note was generated with [employer] dictation software. It may contain incorrect words, spelling, and punctuation that were not noted in review of the chart prior to signing ED Disposition - Plan for ED Patient: Chief Complaint: Wound Referrals: Sandrine Chavez MD [Primary Care Provider] -
--- NOTE | 2018-10-26 11:46 | ED.DEP ---
ED Disposition - Plan for ED Patient: Disposition: Home or Assisted Living Chief Complaint: Wound Instructions: ED Abscess IandD Prescriptions: Smz/Tmp Ds [Bactrim Ds] 1 tab PO BID #20 tab Referrals: Sandrine Chavez MD [Primary Care Provider] -
== END 2018-10-26 12:12 | disposition home or self-care (01) ==
LOC: ED 12:04
PROVIDERS: Emergency Provider Emergency Medicine; Family Provider Internal Medicine; PCP Internal Medicine
DX: L02.01 Cutaneous abscess of face (principal); B96.89 Other specified bacterial agents as the cause of diseases classified elsewhere; Z86.14 Personal history of Methicillin resistant Staphylococcus aureus infection; Z72.0 Tobacco use
CPT/HCPCS: 10060; 99283

== ENCOUNTER 2018-12-04 11:54 | Emergency (ER) | payer MEDICAID, SELFPAY ==
[2018-12-03 14:46] VITALS: BMI 26.6
[2018-12-04 11:55] VITALS: BP 126/68; PULSE 92; RESP 18; TEMP 36.6; O2SAT 99; BMI 29.1
--- NOTE | 2018-12-04 12:27 | RAD_ITS ---
STUDY: X-RAY - NASAL BONES REASON FOR EXAM: Male, 28 years old. Pain and laceration following an injury. TECHNIQUE: 3 view(s) of the nasal bones. COMPARISON: None. FINDINGS: Normal nasal bones. Normal anterior nasal spine. There is no demonstrated soft tissue swelling. The remaining visualized osseous structures are normal. Normal visualized paranasal sinuses. RAD/Nasal Bones min 3 Views IMPRESSION: Normal x-ray examination of the nasal bones. Electronically Signed: Gio Marcos MD at 12:56 EST Tel [phone], Service support ,
[2018-12-04] MEDS: Lidocaine/Epi/Tetracaine 50 ML 1 APPLIC TOPICAL (13:00)
--- NOTE | 2018-12-04 13:25 | ED.DCSUM_ITS ---
- ER Visit Summary Date of Service: 12/04/18 Chief Complaint: [Injury to nose] History of Present Illness: The patient is a 28 M [presents the emergency room with complaint of injury to his nose that occurred prior to arrival in the emergency department. Patient states that he dove into a swimming pool that he was told was 13 feet deep and it ended up being 6 feet D. Patient struck his nose on the floor of the pool. Patient denies loss of consciousness. He denies any neck pain. Denies any paresthesias to his neck.] Physical Examination: [HEENT-PERRLA, EOMI. Cranial nerves II through XII grossly intact. TMs clear. Mucous membranes moist. No adenopathy. Patient has a 1.5 cm horizontal laceration across the bridge of the nose. He does have bony tenderness but no obvious deformity. There is no blood within the nasal vaults. She has no C-spine tenderness on palpation and has normal active range of motion is painless. C-spine cleared clinically. Cardiovascular-regular rate and rhythm without murmur or ectopy Lungs-clear to auscultation, chest wall stable without crepitus or subcu emphysema Abdomen-normoactive bowel sounds, soft, nontender, no rebound or rigidity, no peritoneal signs. Extremities-intact ?4, normal range of motion, normal pulses, atraumatic] Test Results: [X-rays of the nasal bones obtained showed no fractures.] Emergency Department Course and Treatment: [Laceration repair-patient had topical let solution applied to the wound. Wound cleansed with Shur-Clens and irrigated with copious saline. Patient did have a bluish discoloration to the wound and the patient states the pool bottom was blue. I attempted to scrape this off the wound unsuccessfully. Wound cleansed with Shur-Clens and irrigated with copious saline. Using 6-0 nylon a total of 3 single interrupted sutures placed with good wound edge approximation.] Treatment Plan: [Patient to follow-up with primary care physician in 5-7 days for suture removal.] Disposition: [Discharged home in stable condition] Impression: [Nasal contusion Laceration nasal 1.5 cm with simple repair] This note was generated with [employer] software. It may contain incorrect words, spelling, and punctuation that were not noted in review of the chart prior to signing ED Disposition - Plan for ED Patient: Chief Complaint: Laceration Referrals: Sandrine Chavez MD [Primary Care Provider] -
--- NOTE | 2018-12-04 13:25 | ED.DEP ---
ED Disposition - Plan for ED Patient: Chief Complaint: Laceration Instructions: ED Laceration Facial Sutr Tape Prescriptions: Naproxen [Naprosyn] 500 mg PO BID PRN #20 tab Referrals: Sandrine Chavez MD [Primary Care Provider] - 5 Days for suture removal
--- OUTSIDE RECORDS SUMMARY | 2019-02-08 05:12 | XMS RPT_ITS ---
:1990 Author Organization OHIP Support Name Relationship Address Phone MERCEDEZ, COLEEN Unavailable [address] + [place] [address] UE Unavailable Unavailable Unavailable MERCEDEZ, COLEEN Unavailable [address] + [place] [address] UE Unavailable Unavailable Unavailable MERCEDEZ, COLEEN Unavailable [address] + [place] [address] UE Unavailable Unavailable Unavailable MERCEDEZ, COLEEN Unavailable [address] + [place] [address] UE Unavailable Unavailable Unavailable MERCEDEZ, COLEEN Unavailable [address] + [place] [address] SCOIN Unavailable [address] + [address] [place] [address] MERCEDEZ, COLEEN Unavailable [address] + [place] [address] SCOIN Unavailable [address] + [address] [place] [address] MERCEDEZ, COLEEN Unavailable [address] + [place] [address] SCOIN Unavailable [address] + [address] [place] [address] MERCEDEZ, COLEEN Unavailable [address] + [place] [address] SCOIN Unavailable [address] + [address] [place] [address] U Unavailable Unavailable Unavailable MERCEDEZ, COLEEN Unavailable [address] + [place] [address] U Unavailable Unavailable Unavailable U Unavailable Unavailable Unavailable U Unavailable Unavailable Unavailable S Unavailable Unavailable Unavailable U Unavailable Unavailable Unavailable JULISA URBINA Unavailable [address] [facility] + [place] [address] S Unavailable Unavailable Unavailable Care Team Providers Name Role Phone Joseph Hylton MAKEUP SALES CONSULTANT-C Attending Unavailable Oleghe, Efewongbe Referring Unavailable Oleghe, Efewongbe Primary Care Unavailable Rachel Carbajal Attending Unavailable Joseph Hylton MAKEUP SALES CONSULTANT-C Attending Unavailable Primay Care Physicia, No Referring Unavailable Primay Care Physicia, No Primary Care Unavailable Joseph Hylton MAKEUP SALES CONSULTANT-C Attending Unavailable Oleghe, Efewongbe Referring Unavailable Primay Care Physicia, No Primary Care Unavailable Joseph Hylton MAKEUP SALES CONSULTANT-C Attending Unavailable Oleghe, Efewongbe Primary Care Unavailable Joseph Hylton MAKEUP SALES CONSULTANT-C Referring Unavailable Oleghe, Efewongbe Attending Unavailable Oleghe, Efewongbe Referring Unavailable Joseph Hylton MAKEUP SALES CONSULTANT-C Attending Unavailable Oleghe, Efewongbe Referring Unavailable Oleghe, Efewongbe Primary Care Unavailable Oleghe, Efewongbe Attending Unavailable Oleghe, Efewongbe Referring Unavailable Oleghe, Efewongbe Primary Care Unavailable Oleghe, Efewongbe Attending Unavailable Oleghe, Efewongbe Primary Care Unavailable Oleghe, Efewongbe Referring Unavailable Oleghe, Efewongbe Primary Care Unavailable Miles Pro Attending Unavailable Oleghe, Efewongbe Primary Care Unavailable Ashelfah, Ghasem Admitting Unavailable Joseph Huston Attending Unavailable Miguel Arndt Consulting Unavailable Ashelfah, Ghasem Admitting Unavailable Ashelfah, Ghasem Attending Unavailable Oleghe, Efewongbe Primary Care Unavailable Ashelfah, Ghasem Consulting Unavailable Ashelfah, Ghasem Admitting Unavailable Joseph Huston Attending Unavailable Oleghe, Efewongbe Primary Care Unavailable Miguel Arndt Consulting Unavailable Joseph Huston Consulting Unavailable Oleghe, Efewongbe Primary Care Unavailable Rasheed Holland Attending Unavailable PROBLEMS PROBLEMS DATE TYPE CONDITION / CODE ATTENDING STATUS SOURCE 12/09/2018 Unknown F19.10 - Other Oleghe, Active [place] psychoactive Efewongbe [facility] substance abuse, Hospital uncomplicated / Repository F19.10(ICD-10) 04/17/2018 Unknown Z87.898 - Personal Oleghe, Active [place] history of other [facility] specified Hospital conditions / Repository Z87.898(ICD-10) 04/18/2018 Unknown R39.89 - Other Oleghe, Active [place] symptoms and signs [facility] involving the Hospital genitourinary Repository system / R39.89(ICD-10) 02/13/2018 Unknown Z13.0 - Encounter Joseph Hylton Active [place] for screening for MAKEUP SALES CONSULTANT-C Community diseases of the Hospital blood and Repository blood-forming organs and certain disorders involving the immune mechanism / Z13.0(ICD-10) 02/13/2018 Unknown F41.9 - Anxiety Hylton, Joseph Active [place] disorder, MAKEUP SALES CONSULTANT-C Community unspecified / Hospital F41.9(ICD-10) Repository 02/24/2018 Unknown F32.9 - Major HyltonJoseph álvarez Active [place] depressive MAKEUP SALES CONSULTANT-C Community disorder, single Hospital episode, Repository unspecified / F32.9(ICD-10) 02/24/2018 Unknown G47.00 - Insomnia, Joseph Hylton Active [place] unspecified / MAKEUP SALES CONSULTANT-C Community G47.00(ICD-10) Hospital Repository 02/24/2018 Unknown Z72.0 - Tobacco use Joseph Hytlon Active [place] / Z72.0(ICD-10) MAKEUP SALES CONSULTANT-C Community Hospital Repository PROCEDURES PROCEDURES No Procedure Records FoundRESULTS RESULTS INTERNAL MEDICINE Observed: 12/09/2018 Status: F Source: [place] OFFICE VISIT 4:23 PM [facility] REPOSIT[facility] [address] [place] [address] [place] [address] OFFICE VISIT Date of Service: 12/09/18 MR#: [id number] Acct: [id number] Name: LATOYA GARCIA Bob Rep #: [id number] : 1990 Provider: Sandrine Chavez MD Age/Sex: 28/M Location: [facility] Status: Signed Intake Vital Signs12/09/18 Body Mass Index (BMI) 29.1 12/09/18 Height 6 ft 12/09/18 Weight: 224 lb 12/09/18 Body Mass Index (BMI) 30.4 12/09/18 Blood Pressure 106/70 Intake Visit Reasons: SUTURE REMOVAL Chief Complaint: Suture Removal - Bridge of nose Is patient in pain?: No Allergies Penicillins Adverse Reaction (Verified 12/09/18 08:48) Unknown Medications mirtazapine 15 mg tablet 7.5 mg PO DAILY #30 tab 12/03/18 [Rx Confirmed 12/09/18] nicotine 21mg/24hr-14mg/24hr-7mg/24hr daily transderm patch,sequential 1 patch TRANSDERMAL QDAY #70 patch 12/03/18 [Rx Confirmed 12/09/18] Naproxen [Naprosyn] 500 mg PO BID PRN #20 tab 12/04/18 [Rx Confirmed 12/09/18] [facility] Medical History Anxiety (Chronic) Surgical History History of tonsillectomy (Acute) history of facial reconstruction (Acute) Family History Father Myocardial infarction, Onset Age: 40 Grandfather Diabetes Social History Smoking Status: Current every day smoker alcohol intake: never substance use type: former substance user Date of last use: 01/06/18, heroin, methamphetamine what type of physical activity do you participate in: none HPI HPI Chief Complaint: Suture Removal - Bridge of nose Details: LATOYA GARCIA, is a 28 M who presents to the office today for suture removal. He also has some concerns. He was seen in the emergency room on 04 December after he sustained a laceration to his nose. He had jumped into the pool believing it was deeper than anticipated. He had 3 sutures to his laceration. Wound appears to have healed well. He denies any concerns in that regard. He was recently readmitted to the [address] [place] [address] after going back on drugs for about 6 months. He had used IV heroine and meth. He admits to using unclean needles. He has not been screened for hepatitis C recently. Last creatinine in January. And he has since gone back to drugs after that. He also denies being screened for HIV. ROS Const Constitutional: No chills, fatigue, fever(s), frequent falls, malaise, weakness, sleep problems or change in appetite Eyes Eyes: No blurry vision, change in vision, double vision, discharge or visual disturbances ENT ENT: No abnormal hearing, ear pain, ear pressure, tinnitus or dizziness/vertigo Resp Respiratory: No cough, shortness of breath or wheezing Cardio Cardiology: No chest pain at rest, chest pain with exertion, shortness of breath, dyspnea on exertion, generalized swelling, irregular heart rhythm, lightheadedness, orthopnea, fast heart rate or palpitations Gastro GI: No abdominal pain, change in bowel habits, constipation, diarrhea, nausea/dyspepsia or vomiting Genitourinary Male: No difficulty urinating, burning urination, painful urination, urinary incontinence, urinary frequency, urinary urgency, urinary hesitancy, urinary retention, blood in urine, Frequent nighttime urination/ nocturia, sexual problems, testicle lump or testicle pain Musc Musculoskeletal: No joint pain, back pain, joint swelling, limited range of motion, numbness or tingling Skin Skin: No change in skin color, itching, rash or wounds Breast Breast: No breast lump or breast pain Neuro Neurology: No frequent falls, weakness, visual disturbances, abnormal hearing, numbness, tingling, unsteady gait/balance, dizziness, loss of vision or memory loss Psych Psychiatric: No change in appetite, No memory loss, No anxiety, No depression, No Thoughts of harming yourself/Others Endo Endocrine: No fatigue, heat intolerance, increased thirst/drinking, increased hunger or increased urination Aller/Imm Allergy/Immunologic: No wheezing, itchy eyes or seasonal allergy symptoms Sheldon/Lymp Hematologic/Lymphatic: No easy bleeding, easy bruising or enlarged lymph nodes Exam Const General: cooperative, no acute distress, well developed Orientation: alert, awake, oriented x3 [facility] Head: atraumatic, normocephalic, normal to inspection Ears: hearing grossly normal bilaterally Resp Effort AND Inspection: normal respiratory effort, able to speak in complete sentences Auscultation: Bilateral: Clear to Auscultation Cardio Rate: regular rate Rhythm: regular rhythm Heart Sounds: S1 normal, S2 normal GI Palpation: soft, no hepatosplenomegaly Neuro General: alert, awake, oriented x3, moves all extremities, CN's II-XI intact bilaterally Extrem General: no clubbing, cyanosis or edema Psych Appearance: grossly normal Mood: congruent mood Affect: normal affect Assessment AND Plan 1. Encounter for removal of sutures Z48.02 Plan Sutures removed without incident. Skin well apposed. Advised to call with any questions or concerns. 2. Drug abuse F19.10 Plan Went back to drugs in May and continued till November. Went into acute detox and has been in the [facility] since the 21 of November. Yet to be started on Suboxone. He is concerned about the wait time. Did not do well on Vivitrol in the past. Labs ordered. Follow-up with results. This note was generated with [facility] dictation software. It may contain incorrect words, spelling, and punctuation that were not noted in checking the note before signing. Orders Orders: Coding Level of Care Code Off vis,est,level 4 Diagnoses Encounter for removal of sutures Z48.02 Drug abuse F19.10 12/09/18 1612 <Electronically signed by Sandrine Chavez MD> Date Sandrine Chavez MD Cosigner Signature: Date (if applicable) CC: DISCHARGE INSTRUCTION Observed: 12/04/2018 Status: F Source: [place] 1:26 PM [facility] REPOSITORY [facility] Medical Records Department [address] [place] [address] Discharge Instruction 12/04/18 1325 MR#: [id number] Acct: [id number] Name: LATOYA GARCIA Rep #: [id number] : 1990 28 From: Rachel Carbajal DO PCP: Sandrine Chavez MD Status: REG ER ED Disposition - Plan for ED Patient: Chief Complaint: Laceration Instructions: ED Laceration Facial Sutr Tape Prescriptions: Naproxen [Naprosyn] 500 mg PO BID PRN #20 tab Referrals: Sandrine Chavez MD [Primary Care Provider] - 5 Days for suture removal What to do if you have Problems For any increased pain, shortness of breath, bleeding, nausea or vomiting, chest pain, or any unexpected problems, contact your Primary Care Provider. Call [email or web address] ([phone]) or report to the closest Emergency Room. Call 911 if necessary. 12/04/18 1326 <Electronically signed by Rachel Carbajal DO> Date Rachel Carbajal DO Cosigner Signature (If Indicated): Date CC: Sandrine Chavez MD EMERGENCY DEPARTMENT Observed: 12/04/2018 Status: F Source: [place] SUMMARY 1:25 PM [facility] REPOS[facility]ORY [facility] Medical Records Department [address] [address] Emergency Department Summary 12/04/18 1322 MR#: [id number] Acct: [id number] Name: LATOYA GARCIA Bob Rep #: [id number] : 1990 28 From: Rachel Carbajal DO PCP: Sandrine Chavez MD Status: REG ER - ER Visit Summary Date of Service: 12/04/18 Chief Complaint: [Injury to nose] History of Present Illness: The patient is a 28 M [presents the emergency room with complaint of injury to his nose that occurred prior to arrival in the emergency department. Patient states that he dove into a swimming pool that he was told was 13 feet deep and it ended up being 6 feet D. Patient struck his nose on the floor of the pool. Patient denies loss of consciousness. He denies any neck pain. Denies any paresthesias to his neck.] Physical Examination: [HEENT-PERRLA, EOMI. Cranial nerves II through XII grossly intact. TMs clear. Mucous membranes moist. No adenopathy. Patient has a 1.5 cm horizontal laceration across the bridge of the nose. He does have bony tenderness but no obvious deformity. There is no blood within the nasal vaults. She has no C-spine tenderness on palpation and has normal active range of motion is painless. C-spine cleared clinically. Cardiovascular-regular rate and rhythm without murmur or ectopy Lungs-clear to auscultation, chest wall stable without crepitus or subcu emphysema Abdomen-normoactive bowel sounds, soft, nontender, no rebound or rigidity, no peritoneal signs. Extremities-intact 4, normal range of motion, normal pulses, atraumatic] Test Results: [X-rays of the nasal bones obtained showed no fractures.] Emergency Department Course and Treatment: [Laceration repair- patient had topical let solution applied to the wound. Wound cleansed with Shur-Clens and irrigated with copious saline. Patient did have a bluish discoloration to the wound and the patient states the pool bottom was blue. I attempted to scrape this off the wound unsuccessfully. Wound cleansed with Shur-Clens and irrigated with copious saline. Using 6-0 nylon a total of 3 single interrupted sutures placed with good wound edge approximation.] Treatment Plan: [Patient to follow-up with primary care physician in 5-7 days for suture removal.] Disposition: [Discharged home in stable condition] Impression: [Nasal contusion Laceration nasal 1.5 cm with simple repair] This note was generated with [facility] dictation software. It may contain incorrect words, spelling, and punctuation that were not noted in review of the chart prior to signing ED Disposition - Plan for ED Patient: Chief Complaint: Laceration Referrals: Sandrine Chavez MD [Primary Care Provider] - What to do if you have Problems For any increased pain, shortness of breath, bleeding, nausea or vomiting, chest pain, or any unexpected problems, contact your Primary Care Provider. Call [facility] ([phone]) or report to the closest Emergency Room. Call 911 if necessary. 12/04/18 1324 <Electronically signed by Rachel Carbajal DO> Date Rachel Carbajal DO Cosigner Signature (If Indicated): Date CC: Sandrine Chavez MD NASAL BONES MIN 3 Observed: 12/04/2018 Status: F Source: [place] VIEWS 12:28 PM [facility] Imaging Services [address] [place] [address] Nasal Bones min 3 Views MR#: [id number] Acct: [id number] Name: LATOYA GARCIA Bob Rep #: [id number] : 1990 M 28 From: Gio Marcos MD PCP: Sandrine Chavez MD Status: REG ER Study: Nasal Bones min 3 Views Date of Exam: 12/04/18 Exam# [id number] Ordering Dr: Rachel Carbajal DO STUDY: X-RAY - NASAL BONES REASON FOR EXAM: Male, 28 years old. Pain and laceration following an injury. TECHNIQUE: 3 view(s) of the nasal bones. COMPARISON: None. FINDINGS: Normal nasal bones. Normal anterior nasal spine. There is no demonstrated soft tissue swelling. The remaining visualized osseous structures are normal. Normal visualized paranasal sinuses. RAD/Nasal Bones min 3 Views IMPRESSION: Normal x-ray examination of the nasal bones. Electronically Signed: Gio Marcos MD at 12:56 EST Tel [phone], Service support , CC: Sandrine Chavez MD; Rachel Carbajal DO Insert Operator: Signed INTERNAL MEDICINE Observed: 12/03/2018 Status: F Source: [place] OFFICE VISIT 5:23 PM [facility] [address] [place] [address] [place] [address] OFFICE VISIT Date of Service: 12/03/18 MR#: [id number] Acct: [id number] Name: LATOYA GARCIA Rep #: [id number] : 1990 Provider: Joseph Hylton NP Age/Sex: 28/M Location[place] [facility] Status: Signed Intake Vital Signs12/03/18 Body Mass Index (BMI) 26.6 12/03/18 Height 6 ft 12/03/18 Weight: 213 lb Intake Visit Reasons: CHECK UP/NEEDS SOMETHING TO SLEEP Chief Complaint: insomnia Is patient in pain?: Yes (joint pain) Pain scale (1-10): 6 Allergies Penicillins Adverse Reaction (Verified 10/26/18 11:18) Unknown Medications acetaminophen 500 mg tablet 500 mg PO Q8H PRN #60 tab 12/03/18 [Rx Confirmed 12/03/18] ibuprofen 400 mg tablet 400 mg PO BID PRN #60 tab 12/03/18 [Rx Confirmed 12/03/18] mirtazapine 15 mg tablet 7.5 mg PO DAILY #30 tab 12/03/18 [Rx Confirmed 12/03/18] nicotine 21mg/24hr-14mg/24hr-7mg/24hr daily transderm patch,sequential 1 patch TRANSDERMAL QDAY #70 patch 12/03/18 [Rx Confirmed 12/03/18] PFSH Medical History Anxiety (Chronic) Surgical History History of tonsillectomy (Acute) history of facial reconstruction (Acute) Family History Father Myocardial infarction, Onset Age: 40 Grandfather Diabetes Social History Smoking Status: Never smoker alcohol intake: never substance use type: former substance user Date of last use: 01/06/18, heroin, methamphetamine what type of physical activity do you participate in: none HPI HPI Chief Complaint: insomnia Details: LATOYA GARCIA, is a 28 M who presents to the office today for an acute visit for difficulty sleeping. Patient has a past medical history as listed above. Patient states he began having difficulty sleeping about 2 weeks ago. Patient was [facility] from January to May last year. He then relapsed after a month and a half of being out of the [facility] facility and just began detoxing again on November 21. Patient states around this time is when his insomnia began. Patient detoxed for 10 days and then reentered the [facility] program in house Saturday. Patient states he is only got about 4 hours of sleep in the past 2 days. States he only has difficulty falling asleep and staying asleep. Patient was taking Remeron from the detox center which worked well. he denies much caffeine use states he only drinks 1 cup of coffee a day. Denies any other aggravating or alleviating factors. He also complains left first, second and third going numb as well which has been on and off for the past couple months. Patient has not tried anything for numbness. He denies any other aggravating or alleviating factors. Patient was on nicotine patch in the past and did well on it but since he had since he relapsed and is started the new program he began smoking again. Patient would like to be considered to try nicotine patch again as her currently he is smoking 1/2 packs/day. ROS Const Constitutional: Positive for sleep problems (trouble falling asleep and staying asleep) and abnormal sleep pattern; no weight change, body ache, chills, fever(s), change in appetite, snoring, weakness, frequent falls, headache(s), excessive sweating or fatigue Eyes Eyes: No change in vision, eye pain, light sensitivity or blurry vision ENT ENT: No headache(s), abnormal hearing, ear pain, tinnitus, nasal congestion, sore throat or neck pain Resp Respiratory: No snoring, cough, shortness of breath or wheezing Cardio Cardiology: No excessive sweating, chest pain at rest, chest pain with exertion, shortness of breath, dyspnea on exertion, palpitations, orthopnea or lightheadedness Gastro GI: No abdominal pain, change in bowel habits, constipation, diarrhea, vomiting, nausea/dyspepsia or cramping Genitourinary Male: No painful urination, urinary incontinence, urinary frequency, urinary urgency, blood in urine, testicle pain or other Musc Musculoskeletal: Positive for joint pain and numbness (finger tips in left hand for 2 months.); no neck pain, abnormal walking, back pain, limited range of motion, tingling or muscle weakness Skin Skin: No redness, dry skin, itching, lesions, wounds or rash Neuro Neurology: Positive for numbness (finger tips in left hand for 2 months.); no weakness, frequent falls, headache(s), abnormal hearing, abnormal walking, tingling, abnormal speech, dizziness or memory loss Psych Psychiatric: No change in appetite, No memory loss, No anxiety, No depression, No Thoughts of harming yourself/Others, Positive for abnormal sleep pattern Endo Endocrine: No excessive sweating, cold intolerance, increased thirst/drinking, heat intolerance, flushing, increased hunger or fatigue Aller/Imm Allergy/Immunologic: No wheezing, itchy eyes, hives or seasonal allergy symptoms Sheldon/Lymp Hematologic/Lymphatic: No easy bleeding, easy bruising or enlarged lymph nodes Exam Const General: cooperative, comfortable, no acute distress Nutritional Appearance: average body habitus, well nourished Orientation: alert, oriented x3 Limitations: mental status not altered Neck Neck: normal visual inspection Chest Chest palpation AND inspection: normal inspection of the chest Resp Effort AND Inspection: normal respiratory effort, able to speak in complete sentences, normal respiratory pattern, symmetric chest movement, no audible wheezes, no cough Auscultation: Bilateral: Clear to Auscultation Cardio Rate: regular rate Heart Sounds: S1 normal, S2 normal, normal S1 and S2, no click, no gallops, no murmurs, no rubs Musc Musculoskeletal: Yes joint tenderness (tenderness on palpation generalized); no decreased ROM, muscle weakness, joint warmth or joint redness Other: Full ROM in all joints. Strength 5/5. Skin General: no rashes or lesions noted Neuro General: alert, awake, oriented x3 Other: Positive Phalens test on left hand, negative on right hand. Negative Tinel test bilaterally. Extrem General: normal to inspection, normal gait, no edema, no pedal edema Psych Appearance: grossly normal Mental Status: mental status grossly normal Affect: normal affect Attitude: cooperative Thought Process: normal Assessment AND Plan 1. Insomnia, unspecified type G47.00 Plan The patient history, presenting symptoms, and assessment insomnia seems to be due to recent detox. Patient has done well on Remeron the plan will be to restart patient on this medication. He was instructed on medication side effects and verbalizes understanding. Patient instructed to call if having any new or worsening symptoms related to his insomnia. 2. Tobacco abuse Z72.0 Plan Patient has history of tobacco abuse currently smoking 1-1/2 packs/day. Patient was previously prescribed nicotine patch and did well. He has started smoking again since he has been in in detox program. He would like to quit smoking again so plans will be to reorder nicotine patch for patient. Instructed on use of patch and patient verbalizes understanding. Medications New: nicotine Apply 21 mg patch daily 6 weeks, then1 patch Transdermal QDAY 70 patches 0RF 14 mg patch daily 2 weeks, then 7 mg patch daily 2 weeks. 3. Left carpal tunnel syndrome G56.02 Plan With positive Phalen's test on left hand and patient history left carpal tunnel syndrome is suspected. Brace was given today in office and patient instructed on use. He can take Tylenol and ibuprofen [id number] as needed for pain. Plan will be for patient to follow-up as needed. This note was generated with [employer] software. It may contain incorrect words, spelling, and punctuation that were not noted in checking the note before signing. Plan Detail Other Medications New: Follow Up 6 weeks or sooner if needed Coding Level of Care Code Off vis,est,level 3 Diagnoses Insomnia, unspecified type G47.00 Insomnia type: unspecified Tobacco abuse Z72.0 Left carpal tunnel syndrome G56.02 12/03/18 7223 <Electronically signed by Joseph GOODWIN> Date Joseph GOODWIN Cosigner Signature: Date (if applicable) CC: DISCHARGE INSTRUCTION Observed: 10/26/2018 Status: F Source: STACEY 11:47 AM [facility] Medical Records Department [address] [place] [address] Discharge Instruction 10/26/18 1146 MR#: [id number] Acct: [id number] Name: LATOYA GARCIA Rep #: [id number] : 1990 28 From: Rasheed Holland MD PCP: Sandrine Chavez MD Status: PRE ER ED Disposition - Plan for ED Patient: Disposition: Home or Assisted Living Chief Complaint: Wound Instructions: ED Abscess IandD Prescriptions: Smz/Tmp Ds [Bactrim Ds] 1 tab PO BID #20 tab Referrals: Sandrine Chavez MD [Primary Care Provider] - What to do if you have Problems For any increased pain, shortness of breath, bleeding, nausea or vomiting, chest pain, or any unexpected problems, contact your Primary Care Provider. Call [facility] ([phone]) or report to the closest Emergency Room. Call 911 if necessary. 10/26/18 1147 <Electronically signed by Rasheed Holland MD> Date Rasheed Holland MD Cosigner Signature (If Indicated): Date CC: Sandrine Chavez MD EMERGENCY DEPARTMENT Observed: 10/26/2018 Status: F Source: [place] SUMMARY 11:46 AM [facility] Medical Records Department [address] [place] [address] Emergency Department Summary 10/26/18 1144 MR#: [id number] Acct: [id number] Name: LATOYA GARCIA Rep #: [id number] : 1990 28 From: Rasheed Holland MD PCP: Sandrine Chavez MD Status: PRE ER - ER Visit Summary Date of Service: 10/26/18 Chief Complaint: Facial abscess History of Present Illness: The patient is a 28 M who presents with a facial abscess. Is been there for 3 days. It started out as a small pimple but grew larger. He states he had a small amount of purulent drainage last night. He had some sweats but no documented fevers. He has history of a MRSA infection in the prepatellar space last year. Physical Examination: Vital signs reviewed. Skin exam reveals a 2.5 x 2.5 cm abscess to the right lower face. There is erythema and fluctuance. Test Results: None performed Emergency Department Course and Treatment: The patient was given Bactrim. Incision and drainage was performed. After verbal consent, 3 cc of lidocaine was used to anesthetize the area. A cruciate incision was made over the dome of the abscess. Moderate purulent material returned. Hemostats were used to break up any loculations was then irrigated. Patient will be placed on Bactrim for home. He will follow-up with his PCP Treatment Plan: [] Disposition: Discharge Impression: Facial abscess, 2.5 cm Incision and drainage by ED physician This note was generated with [facility] dictation software. It may contain incorrect words, spelling, and punctuation that were not noted in review of the chart prior to signing ED Disposition - Plan for ED Patient: Chief Complaint: Wound Referrals: Sandrine Chavez MD [Primary Care Provider] - What to do if you have Problems For any increased pain, shortness of breath, bleeding, nausea or vomiting, chest pain, or any unexpected problems, contact your Primary Care Provider. Call [email or web address] ([phone]) or report to the closest Emergency Room. Call 911 if necessary. 10/26/18 1146 <Electronically signed by Rasheed Holland MD> Date Rasheed Holland MD Cosigner Signature (If Indicated): Date CC: Sandrine Chavez MD VANCOMYCIN, RANDOM Collected: 05/29/2018 Status: F Source: STACEY LEVEL 3:18 PM [facility] Order Comment: Comments: PLEASE DRAW 30MIN PRIOR TO DOSE ON 05/29 @1600 TYPE CODE TESTS RESULT OUT OF RANGE REFERENCE UNITS LAB L501.8850 0.0-15.0 ug/mL Normal VANCO, RANDOM 13.2 Result Comment: VANCOMYCIN STANDARD DRUG THERAPY: CRITICAL VALUE IS > 15.0 mg/L VANCOMYCIN HIGH INTENSITY THERAPY: CRITICAL VALUE IS > 20.0 mg/L PLEASE CONTACT PHARMACY SERVICES (#[id number]) FOR INTERPRETATION OF RESULTS. THIS RESULT DOES NOT REPRESENT A PEAK OR TROUGH LEVEL FOR THIS DRUG. Performed By: #### L501.8850 #### [facility] [address] [place], [address] DISCHARGE SUMMARY Observed: 05/29/2018 Status: F Source: [place]ER[place] 3:15 PM [facility] Medical Records Department [address] [place] [address] Discharge Summary 05/29/18 1510 MR#: [id number] Acct: [id number] Name: LATOYA GARCIA Rep #: [id number] : 1990 28 From: Joseph Huston DO PCP: Sandrine Chavez MD Status: ADM IN Y Location: [facility] IA722-3 ADDENDUM by Joseph Huston DO on 05/29/18 at 1515 Code Visit Please correct #1 diagnosis to read: Left prepatellar cellulitis secondary to suspected MRSA 05/29/18 1515 <Electronically signed by Joseph Huston DO> Date Joseph Huston DO cc: Sandrine Chavez MD; Joseph Huston DO * Signed Discharge Date and Diagnosis Date of Admission: 05/28/18 Date of Discharge: 05/29/18 - Primary Discharge Diagnosis #1 prepatellar cellulitis suspected to be secondary to MRSA - Secondary Discharge Diagnosis Chronic Problems (Last Updated 05/28/18 @ 00:51 by José Manuel Joiner MD) Tobacco abuse (Chronic) Insomnia (Chronic) Depression (Chronic) Anxiety (Chronic) Hospital Course and Treatment Operations: None Procedures: None Summary of Care Provided: The patient is a 28 year old M seen in the emergency room at [facility] with complaints of redness and discomfort over the service of his left kneecap. He was seen in the emergency room the day before and started on oral clindamycin after given IV clindamycin in the ER. He returned to the emergency room stating that the redness had increased in size. Physical examination in the emergency room showed no definite fluctuance or abscess over the left knee area, there was some redness of the skin along with mild edema. White blood cell count was elevated at 11.7, patient's temperature was 99.1. Patient was admitted to [facility] to for cellulitis over the right knee, he was seen in consultation by orthopedic surgery who did not feel he needed surgical intervention, PCR test obtained in the emergency room from the left knee was positive for MRSA although no cultures were obtained from the wound. Patient's edema and redness improved over his hospital stay, on 05/29/18, patient was seen and examined and felt to be in stable condition for discharge home with follow-up as an outpatient. Discharge Activity: Return to Normal Activity Return to work on:: 06/03/18 Weight Bearing Status: Full weight bearing Home Medications: Medications to take at Discharge Smz/Tmp Ds [Bactrim Ds] 1 tab PO BID #20 tab 05/29/18 Following Prescrptions Were Given to Patient: Smz/Tmp Ds [Bactrim Ds] 1 tab PO BID #20 tab Primary Care Physician: Sandrine Chavez MD [Primary Care Provider] - Please follow up with your Primary Care Physician in: on 06/02/18 Disposition: Home Minutes spent on discharge:: 32 Patient Condition:: Stable Medical Necessity - Tobacco Use Smoking Status: Current every day smoker Meaningful Use Info Meaningful Use Diagnoses (Choose all that apply): None applicable Code Visit Inpatient E AND M: 84510 Disch Hosp 05/29/18 1514 <Electronically signed by Joseph Huston DO> Date Joseph Huston DO Cosigner Signature (if applicable): Date CC: Sandrine Chavez MD; Joseph Huston DO Signed DISCHARGE INSTRUCTION Observed: 05/29/2018 Status: F Source: STACEY 11:36 AM [facility] Medical Records Department [address] [place] [address] Instructions for Home/Discharge Instructions 05/29/18 1120 MR#: [id number] Acct: [id number] Name: LATOYA GARCIA Rep #: [id number] : 1990 28 From: Joseph Huston DO PCP: Sandrine Chavez MD Status: ADM IN You will use the following diet at home:: No restrictions Your food should be the consistency of: Regular Your liquids should be the consistency of: Regular/Thin Discharge Activity: Return to Normal Activity Return to work on:: 06/03/18 Weight Bearing Status: Full weight bearing Allergies/Adverse Reactions: Allergies Penicillins Adverse Reaction (Verified 05/27/18 22:19) Unknown Medications to take at Discharge Smz/Tmp Ds [Bactrim Ds] 1 tab PO BID #20 tab 05/29/18 The following prescriptions were given: Smz/Tmp Ds [Bactrim Ds] 1 tab PO BID #20 tab Primary Care Physician: Sandrine Chavez MD [Primary Care Provider] - Please follow up with your Primary Care Physician in: on 06/02/18 Test Results: Test results from this visit will be discussed in further detail at your follow-up appointment, if applicable. 05/29/18 1136 <Electronically signed by Joseph Huston DO> Date Joseph Huston DO CC: Miguel Arndt DO; Sandrine Chavez MD VANCOMYCIN, TROUGH Collected: 05/29/2018 Status: F Source: STACEY LEVEL 8:02 AM [facility] Order Comment: Time Medication is to be Given? 0800 TYPE CODE TESTS RESULT OUT OF REFERENCE UNITS RANGE LAB L501.8820 5.0-15.0 ug/mL High VANCO, TROUGH 20.7 Result Comment: VANCOMYCIN STANDARED DRUG THERAPY TROUGH LEVEL: 5.0 - 15.0 mg/L VANCOMYCIN HIGH INTENSITY THERAPY TROUGH LEVEL: 15.0 - 20.0 mg/L High Intensity therapy recommended for serious life threatening infections include: - Meningitis -Endocarditis -Pneumonia (Ventilator/Healtcare Associated) -Sepsis PLEASE CONTACT PHARMACY SERVICES (#8618) FOR INTERPRETATION OF RESULTS. Performed By: #### L501.8820 #### [facility] [address] [place], [address] CONSULTATION Observed: 05/28/2018 Status: F Source: [place] 11:22 AM [facility] Medical Records Department [address] [place] [address] Consultation 05/28/18 1115 MR#: [id number] Acct: [id number] Name: LATOYA GARCIA Rep #: [id number] : 1990 28 From: Miguel Arndt DO PCP: Sandrine Chavez MD Status: ADM IN Y Location: [facility] [id number] Reason for Consult Date of Consultation: 05/28/18 Reason for Consultation: Left knee pain and redness History of Present Illness: The patient is a 28 year old M who presented to the emergency department because of left sided knee pain swelling redness. Approximately 3 days ago patient noticed a small pimple overlying his knee with surrounding redness. He went to the emergency department yesterday and was given oral antibiotics. He came back early this morning because of worsening symptoms and worsening pain and redness. He was admitted to the hospital for IV antibiotics seen that he has failed oral antibiotics. He states that he did have fevers at home however he has been afebrile during his stay. Orthopedics was consulted because of concern for septic arthritis. Past Medical History Past Medical History (Chronic Problems): Chronic Problems (Last Updated 05/28/18 @ 00:51 by José Manuel Joiner MD) Tobacco abuse (Chronic) Insomnia (Chronic) Depression (Chronic) Anxiety (Chronic) Medical History: Medical History (Last Updated 05/28/18 @ 00:51 by José Manuel Joiner MD) Anxiety (Chronic) F41.9 Allergies Penicillins Adverse Reaction (Verified 05/27/18 22:19) Unknown Home Medications: Ambulatory Orders Medication Instructions Recorded Clindamycin HCl 300 mg PO [id number] 10 Days #40 05/26/18 Surgical History: Surgical History (Last Reviewed 04/17/18 @ 16:04 by Jigna Gleason) History of tonsillectomy Z98.890, Z90.89 history of facial reconstruction following an accident Surgical History: - - Adenoidectomy. Psychiatric History: Anxiety, Depression Smoking Status: Current every day smoker Alcohol: None Drugs: None - *Family History Maternal Family History: Family History (Last Reviewed 04/17/18 @ 16:04 by Jigna Gleason) Father Myocardial infarction, Onset Age: 40 Grandfather Diabetes History Items: No pertinent history Paternal Family History: Family History (Last Reviewed 04/17/18 @ 16:04 by Jigna Gleason) Father Myocardial infarction, Onset Age: 40 Grandfather Diabetes History Items: No pertinent history Review of Systems Constitutional: Reports: Fever HEENT: Denies: Head Aches, Sinus Congestion, Sinus Drainage Cardiovascular: Denies: Chest Pain, Palpitations Respiratory: Denies: Cough, Shortness of breath at rest, Sputum production Gastrointestinal: Denies: Abdominal Pain, Nausea, Vomiting Genitourinary: Denies: Dysuria Musculoskeletal: Reports: - - Knee pain and redness Skin: Reports: - - Redness overlying left knee Neurological: Denies: Numbness, Tingling, Focal weakness Psychiatric: Denies: Anxiety, Depression, Homicidal Ideations, Suicidal Ideations - Physical Exam General: Alert, Oriented x3, Cooperative HEENT: Atraumatic, PERRLA, EOMI, Normocephalic Lungs: Normal air movement Cardiovascular: Regular rate Musculoskeletal: - - Patient has erythema overlying the anterior aspect of the knee and propagating medially. There is no fluctuance of the bursa. The nidus of infection appears to be in the prepatellar skin. This does not appear to be septic bursitis. He is able to flex and extend his knee without any significant discomfort. No calf pain is noted. He is neurovascularly intact. Extensor mechanism is intact Neurological: Cranial nerves II-XII grossly intact Vital Signs Temp Pulse Resp BP Pulse Ox 98.1 F 76 16 103/60 95 05/28/18 10:00 05/28/18 10:00 05/28/18 10:00 05/28/18 10:00 05/28/18 10:00 Oxygen Delivery Method Room Air Weight: 237 lb 14.06 oz Body Mass Index (BMI) 32.2 Intake and Output for Last 24 Hours Intake Total 766 / 766 Balance 766 / 766 Laboratory Tests Past 24 Hrs WBC 9.2 RBC 4.47 L Hgb 14.1 Hct 41.4 MCV 92.6 MCH 31.5 Assessment/Plan Acute cellulitis left leg Plan: I reviewed patient's x-rays as well as lab work. Based on patient's findings and clinical examination patient does not appear to have septic arthritis. I do not feel given his lack of pain in the knee and his ability to move his knee that an aspiration is necessary. I do agree however with the need for IV antibiotics seen that the patient has failed outpatient oral therapy. I do not identify any need for surgical management and would recommend continuing IV antibiotic treatment 05/28/18 1122 <Electronically signed by Miguel Arndt DO> Date Miguel Arndt DO Cosigner Signature (if applicable): Date CC: Miguel Arndt DO; Sandrine Chavez MD Signed CBC W/DIFF, AUTOMATED Collected: 05/28/2018 Status: F Source: SATCEY 6:52 AM [facility] TYPE CODE TESTS RESULT OUT OF RANGE REFERENCE UNITS LAB L100.1000 4.4-11.0 K/mm3 Normal WBC 9.2 LAB L100.1200 4.6-6.2 M/mm3 Low RBC 4.47 LAB L100.1300 13.0-16.5 g/dl Normal HGB 14.1 LAB L100.1400 40-54 % Normal HCT 41.4 LAB L100.1500 80-94 fL Normal MCV 92.6 LAB L100.1600 27.0-32.0 pg Normal MCH 31.5 LAB L100.1700 32-36 g/gl Normal MCHC 34.1 LAB L100.1810 11.6-14.6 % Normal RDW CV 12.5 LAB L100.1820 35.1-43.9 fl Normal RDW SD 41.9 LAB L100.1900 150-450 K/mm3 Normal PLT 170 LAB L100.2000 6.2-12.0 fl Normal MPV 9.7 LAB L100.2100 47-70 % High NEUT% 78.9 LAB L100.2200 19-41 % Low LY% 10.1 LAB L100.2300 0-10 % Normal MONO% 9.0 LAB L100.2400 0-5 % Normal EO% 1.6 LAB L100.2500 0-1 % Normal BASO% 0.1 LAB L100.2550 0.0-0.9 % Normal IM GRAN % 0.300 Result Comment: IG% - Immature Granulocytes (promyelocytes, myelocytes and metamyelocytes) > 1% indicates that a LEFT SHIFT is Present. LAB L100.2620 2.0-7.7 X10 3/uL Normal Absolute Neut 7.2 LAB L100.2720 0.83-4.51 X10 3/ul Normal Absolute Lymph 0.92 Performed By: #### L100.0100 #### [facility] [address] [facility] [place], [address] MRSA WOUND DNA BY Collected: 05/28/2018 Status: F Source: [place] PCR 2:00 AM [facility] Order Comment: Specimen Source? L KNEE TYPE CODE TESTS RESULT OUT OF REFERENCE UNITS RANGE LAB L8200.1100 Negative High MRSA POSITIVE RESULT Result Comment: CRITICAL VALUE VERIFIED. CALLED TO EDDY MOREIRA 05/28/18 0630 Joy Vidal. RESULTS READ BACK BY SAME . LAB L8200.1150 Negative High SA RESULT POSITIVE Performed By: #### L8200.1075 #### [facility] [address] [place], [address] HISTORY AND PHYSICAL Observed: 05/28/2018 Status: F Source: [place] EXAM 1:10 AM [facility] Medical Records Department [address] [place] [id number] History and Physical 05/28/18 0051 MR#: [id number] Acct: [id number] Name: GARCIALATOYA Bob Rep #: [id number] : 1990 28 From: José Manuel Joiner MD PCP: Sandrine Chavez MD Status: ADM IN Y Location: [facility] SG508-2 Problem List (1) Tobacco abuse Status: Chronic (2) Insomnia Status: Chronic (3) Depression Status: Chronic Qualifiers: (4) Anxiety Status: Chronic History of Present Illness Date of Admission: 05/28/18 Chief Complaint: Left knee pain, swelling and redness. The patient is a 28 year old M with past medical history as mentioned above presented to the emergency room because of left knee pain, swelling and redness. Her symptoms started 3 days ago with small pimple on his left knee surrounded by erythema. He was seen yesterday in the emergency department and he was sent home on antibiotics. He came back today because of worsening symptoms. His main complaint is left knee pain, described as sharp pain, 8 out of 10 in severity, extends up to the lower one third of the left thigh, associated with swelling and redness of the left knee, aggravated by bending his left knee and relieved by rest, associated with subjective fever at home. He mentioned that the swelling and erythema of the left knee got significantly worse than yesterday. He was given clindamycin yesterday which he has been taking without improvement. He denied recent trauma or mechanical fall. In the emergency department, he was tachycardic, other vital signs were stable. His routine blood work revealed minimal leukocytosis, otherwise normal. Lactic acid was normal. X-ray of the left knee revealed soft tissue swelling no other acute findings. He is being admitted for left knee cellulitis with failure of outpatient therapy. Past Medical History Past Medical History (Chronic Problems): Chronic Problems (Last Updated 05/28/18 @ 00:51 by José Manuel Joiner MD) Tobacco abuse (Chronic) Insomnia (Chronic) Depression (Chronic) Anxiety (Chronic) Medical History: Medical History (Last Updated 05/28/18 @ 00:51 by José Manuel Joiner MD) Anxiety (Chronic) F41.9 Allergies Penicillins Adverse Reaction (Verified 05/27/18 22:19) Unknown Home Medications: Ambulatory Orders Medication Instructions Recorded Clindamycin HCl 300 mg PO [id number] 10 Days #40 05/26/18 Surgical History: Surgical History (Last Reviewed 04/17/18 @ 16:04 by Jigna Gleason) History of tonsillectomy Z98.890, Z90.89 history of facial reconstruction following an accident Surgical History: - - Adenoidectomy. Psychiatric History: Anxiety, Depression Smoking Status: Current every day smoker Alcohol: None Drugs: None - *Family History Maternal Family History: Family History (Last Reviewed 04/17/18 @ 16:04 by Jigna Gleason) Father Myocardial infarction, Onset Age: 40 Grandfather Diabetes History Items: No pertinent history Paternal Family History: Family History (Last Reviewed 04/17/18 @ 16:04 by Jigna Gleason) Father Myocardial infarction, Onset Age: 40 Grandfather Diabetes History Items: No pertinent history Review of Systems Constitutional: Reports: Fever, Malaise, Weakness. Denies: Anorexia, Chills Eyes: Denies: Blurred vision, Double vision, Drainage, Redness HEENT: Denies: Difficulty Hearing, Ear Pain, Eye Pain, Nasal Congestion, Sore Throat Cardiovascular: Denies: Chest Pain, Chest Pressure, Chest Tightness, Heaviness, Light Headedness, Palpitations, Syncope Respiratory: Denies: Cough, Pleuritic Pain, Shortness of Breath, Sputum production, Wheezing Gastrointestinal: Denies: Abdominal Pain, Constipation, Diarrhea, Nausea, Vomiting Genitourinary: Denies: Dysuria, Frequency, Hematuria Musculoskeletal: Reports: Joint Pain. Denies: Arm Pain, Back Pain Skin: Denies: Dryness, Rash Neurological: Denies: Balance problems, Blurred vision, Double vision, Slurred speech, Confusion, Headaches, Incoordination Psychiatric: Reports: Anxiety, Depression Endocrine: Denies: Change in Body Habitus, Polydipsia VTE Information - Inpt Only VTE Present on Admission: No VTE Mechan Device Prophylaxis: None VTE Pharm Prophylaxis ordered?: No - Physical Exam General: Alert, Oriented x3, Cooperative, No apparent distress HEENT: Atraumatic, PERRLA, EOMI, Normocephalic Oral: Moist Mucosa, No Gingival or Mucosal Lesions/ Ulcerations Neck: Supple, No JVD, Negative Carotid Bruits, Trachea Midline, Thyroid Normal Size and Texture Lungs: Clear to auscultation, Normal air movement, No rhonchi, No wheeze, No rales Cardiovascular: Regular rate, Regular Rhythm, Normal S1, Normal S2, No murmurs, Tachycardic Abdomen: Bowel Sounds Present, Soft, Non Tender, Non-Distended, No Hepato-splenomegaly Extremities: No clubbing, No cyanosis, No edema Skin: No rashes, No breakdown, - - Left knee: Erythema and swelling overlying the left knee, tender to palpation, hot to palpation, couple of small dry wounds. Lymphatic: No Cervical, Supraclavicular, or Inguinal Adenopathy Neurological: Cranial nerves II-XII grossly intact, Motor Exam 5/5 strength throughout Psych/Mental Status: Normal Affect, Appropriate, Alert and oriented to time, place, person, mood and affect Vital Signs Temp Pulse Resp BP Pulse Ox 99.5 F H 89 18 114/62 97 05/28/18 00:29 05/28/18 00:29 05/28/18 00:29 05/28/18 00:29 05/28/18 00:29 Oxygen Delivery Method Room Air Weight: 236 lb 8.896 oz Body Mass Index (BMI) 32.1 Laboratory Tests Past 24 Hrs Clinical Impression(s) from Imaging Studies Knee X-Ray 05/27/18 23:00 IMPRESSION: There is NO acute bony abnormality. There is prepatellar soft tissue swelling. There is NO mass. There is NO joint effusion. Electronically Signed: Piter Verdin MD at 0:40 EDT , Service support , Laboratory Tests WBC 11.7 H (4.4-11.0) K/mm3 RBC 4.60 (4.6-6.2) M/mm3 Assessment/Plan This is a 28 years old male patient presented to the emergency room because of worsening left knee pain, erythema and swelling and he was found to have acute cellulitis of the left knee with failure of outpatient therapy. #1 acute cellulitis of the left knee: Clinically, the infection seemed to be superficially. Acute septic arthritis cannot be ruled out at this time. No evidence of sepsis or severe sepsis. Lactic acid is normal. He was tachycardic, heart rate improved with IV fluids. Patient was on clindamycin as outpatient without improvement. X-ray of the left knee revealed soft tissue swelling, no other findings. Plan: Admit to MedSurg floor, cardiac monitoring, IV fluids, IV Toradol, as needed, OxyIR as needed, start IV cefazolin, MRSA routine screening, orthopedic surgery consult for evaluation to rule out septic arthritis, PT OT evaluation and treatment. #2 anxiety/depression: He is not on medication at this time. Denies any symptoms or suicidal ideations. #3 tobacco abuse: NicoDerm patch if desired. #4 DVT prophylaxis: Low risk patient, ambulate. This note was generated with [facility] dictation software. It may contain incorrect words, spelling, and punctuation that were not noted in checking the note before signing. Code Visit Inpatient E SHAHZAD M: [id number] Init Hosp L3 05/28/18 0110 <Electronically signed by José Manuel Joiner MD> Date José Manuel Joiner MD Cosigner Signature: Date (if applicable) CC: Sandrine Chavez MD; José Manuel Joiner Signed EMERGENCY DEPARTMENT Observed: 05/28/2018 Status: F Source: [place] SUMMARY 12:28 AM [facility] Medical Records Department [address] [place] [address] Emergency Department Summary 05/28/18 0014 MR#: [id number] Acct: [id number] Name: LATOYA GARCIA Rep #: [id number] : 1990 28 From: Damian Escobedo MD PCP: Sandrine Chavez MD Status: REG ER - ER Visit Summary Date of Service: 05/28/18 Chief Complaint: Left knee infection History of Present Illness: The patient is a 28 M with a left knee infection. He was seen in the ED yesterday. This started as an infected follicle and has spread to his left anterior knee region. He was seen in the ED, had a dose of IV clindamycin, and then went home on oral clindamycin. Since discharge, the erythema has doubled in size. He is starting to feel sick and he is having subjective fevers. Physical Examination: Heart rate 110 otherwise vitals normal. Nontoxic and in no acute distress. Left anterior knee shows erythema warmth and mild edema. There is a lateral abrasion and signs of a folliculitis. No definite fluctuance or abscess. He has good range of motion. He is neurovascular intact distally. The remainder of his exam is unremarkable. Test Results: Labs, cultures, xrays pending. Emergency Department Course and Treatment: Patient presents with failed outpatient treatment for cellulitis. Given his subjective fever and malaise, I did obtain labs and an x-ray. Hospitalist requested a lactate because he was tachycardic. Patient was treated with vancomycin. Oncoming doctor will check the results. Patient will be admitted. Treatment Plan: As above Disposition: Admission Impression: 1. Left leg cellulitis This note was generated with [facility] dictation software. It may contain incorrect words, spelling, and punctuation that were not noted in review of the chart prior to signing ED Disposition - Plan for ED Patient: Chief Complaint: Cellulitis Referrals: Sandrine Chavez MD [Primary Care Provider] - What to do if you have Problems For any increased pain, shortness of breath, bleeding, nausea or vomiting, chest pain, or any unexpected problems, contact your Primary Care Provider. Call [facility] ([phone]) or report to the closest Emergency Room. Call 911 if necessary. 05/28/18 0028 <Electronically signed by Damian Escobedo MD> Date Damian Escobedo MD Cosigner Signature (If Indicated): Date CC: Sandrine Chavez MD LACTIC ACID Collected: 05/28/2018 Status: F Source: [place] 12:25 AM [facility] REPOS[facility] Order Comment: Yes/No query for Sepsis Lactate Rule Y TYPE CODE TESTS RESULT OUT OF RANGE REFERENCE UNITS LAB L503.6005 0.4-2.0 mmol/L Normal LACTIC ACID 0.9 Performed By: #### L503.6005 #### [facility] [address] [place], [address] Observed: 05/27/2018 Status: F Source: [place] CULTURE, BLOOD (WB) 11:24 PM [facility] REPOSITORY BC No growth in 5 days. Performed By: #### M200.1000 #### [facility] [address] [facility] [address] [place], [place], [address] BASIC METABOLIC Collected: 05/27/2018 Status: F Source: [place] PROFILE (BMP) 11:20 PM [facility] REPOSITORY TYPE CODE TESTS RESULT OUT OF RANGE REFERENCE UNITS LAB L501.0100 74-106 mg/dL Normal GLU 105 Result Comment: Fasting Glucose result from 100 to 125 mg/dL suggests IMPAIRED HOMEOSTASIS per A.D.A. criteria. Please note revised GLUCOSE reference range effective 2017. LAB L501.1000 7-18 mg/dL Normal BUN 15 LAB L501.1100 0.70-1.30 mg/dL Normal CREAT,SERUM 0.84 Result Comment: The validity of the calculated GFR AND GFRAA in patients over 70 years has not been determined. Clinical correlation is essential. LAB L501.1110 >60 mL/min Normal EST GFR 117 Result Comment: Non- GFR Calc LAB L501.1115 >60 mL/min Normal EST GFR - AA 141 Result Comment: GFR Calc LAB L501.1255 ml/min Normal Estimated CRCL 146.27 LAB L501.1300 10-20 RATIO BUN/CRE Normal 17.8 LAB L501.2200 8.5-10 mg/dL .1 CA Normal 8.6 LAB L501.5300 136-14 mmol/L 5 NA Normal 137 LAB L501.5600 3.5-5. mmol/L 1 K Normal 3.8 LAB L501.5900 98-107 mmol/L CL Normal 101 LAB L501.6100 21.0-3 mmol/L 2.0 CO2 Normal 27.0 LAB L501.6200 5-15 GAP Normal 9 Performed By: #### L500.2500 #### [facility] [address] [place], [address] CBC W/DIFF, AUTOMATED Collected: 05/27/2018 Status: F Source: [place] 11:20 PM [facility] REPOS[facility] TYPE CODE TESTS RESULT OUT OF RANGE REFERENCE UNITS LAB L100.1000 4.4-11.0 K/mm3 High WBC 11.7 LAB L100.1200 4.6-6.2 M/mm3 Normal RBC 4.60 LAB L100.1300 13.0-16.5 g/dl Normal HGB 14.6 LAB L100.1400 40-54 % Normal HCT 42.0 LAB L100.1500 80-94 fL Normal MCV 91.3 LAB L100.1600 27.0-32.0 pg Normal MCH 31.7 LAB L100.1700 32-36 g/gl Normal MCHC 34.8 LAB L100.1810 11.6-14.6 % Normal RDW CV 12.4 LAB L100.1820 35.1-43.9 fl Normal RDW SD 41.0 LAB L100.1900 150-450 K/mm3 Normal PLT 176 LAB L100.2000 6.2-12.0 fl Normal MPV 9.7 LAB L100.2100 47-70 % High NEUT% 76.5 LAB L100.2200 19-41 % Low LY% 12.7 LAB L100.2300 0-10 % Normal MONO% 9.5 LAB L100.2400 0-5 % Normal EO% 0.9 LAB L100.2500 0-1 % Normal BASO% 0.1 LAB L100.2550 0.0-0.9 % Normal IM GRAN % 0.300 Result Comment: IG% - Immature Granulocytes (promyelocytes, myelocytes and metamyelocytes) > 1% indicates that a LEFT SHIFT is Present. LAB L100.2620 2.0-7.7 X10 3/uL High Absolute Neut 9.0 LAB L100.2720 0.83-4.51 X10 3/ul Normal Absolute Lymph 1.48 Performed By: #### L100.0100 #### [facility] [address] [facility] [place], [address] Observed: 05/27/2018 Status: F Source: [place] CULTURE, BLOOD (WB) 11:20 PM [facility] RE[facility] BC No growth in 5 days. Performed By: #### M200.1000 #### [facility] [address] [place], [address] KNEE 4 OR MORE Observed: 05/27/2018 Status: F Source: [place] VIEWS 11:02 PM [facility] REPOSITORY [facility] Imaging Services [address] [place] [id number] Knee 4 or More Views MR#: [id number] Acct: [id number] Name: LATOYA GARCIA Rep #: [id number] : 1990 M 28 From: Piter Verdin PCP: Sandrine Chavez MD Status: REG ER Study: Knee 4 or More Views Date of Exam: 05/27/18 Exam# [id number] Ordering Dr: Damian Escobedo MD STUDY: X-RAY - LEFT KNEE REASON FOR EXAM: Male, 28 years old. Cellulitis TECHNIQUE: 4 view(s) of the knee. COMPARISON: None. FINDINGS: Normal visualized distal femur. Normal visualized proximal tibia and fibula. Normal proximal tibiofibular articulation. There is a bipartite variation of the patella. Normal medial femorotibial compartment. Normal lateral femorotibial compartment. Normal patellofemoral articulation. There is prepatellar soft tissue swelling. There is NO mass. There is NO joint effusion. RAD/Knee 4 or More Views IMPRESSION: There is NO acute bony abnormality. There is prepatellar soft tissue swelling. There is NO mass. There is NO joint effusion. Electronically Signed: Piter Verdin MD at 0:40 EDT , Service support , CC: Damian Escobedo MD; Sandrine Chavez MD Insert Operator: Signed EMERGENCY DEPARTMENT Observed: 05/26/2018 Status: F Source: [place] SUMMARY 12:42 PM [facility] REPOSITORY [facility] Medical Records Department [address] [place] [address] Emergency Department Summary 05/26/18 1234 MR#: [id number] Acct: [id number] Name: LATOYA GARCIA Rep #: [id number] : 1990 28 From: Miles Pro DO PCP: Sandrine Chavez MD Status: PRE ER - ER Visit Summary Date of Service: 05/26/18 Chief Complaint: Left knee cellulitis History of Present Illness: The patient is a 28 M who presents with redness and swelling to his left knee that has been getting worse over the past 3 days. Patient states his pain is aching and worse with any movement. Patient states his pain is also worse with ambulation. Patient denies any fevers or chills. Patient states he was able to express some drainage from a pustule over the anterior aspect of his knee. Patient denies any nausea or vomiting. Physical Examination: Vital signs are stable. Patient is afebrile. Patient is in no acute distress. Oral mucosa is pink and moist. Neck is supple. There is good range of motion. Musculoskeletal exam reveals some erythema, warmth, and tenderness over the anterior aspect of the left knee. There is no joint effusion noted. There is no active discharge or drainage. There is a small pustule of the anterior aspect of the knee. There is no pain with short arc range of motion. The remaining physical exam is within normal limits. Emergency Department Course and Treatment: Patient was given a dose of clindamycin here. Patient was given prescription for clindamycin. Patient was instructed to follow-up with his primary care physician in 2-3 days. Patient was instructed to return if worse in any way. Patient understood and was agreeable with the plan. All questions were answered. Disposition: Discharged home Impression: Left knee cellulitis This note was generated with [facility] dictation software. It may contain incorrect words, spelling, and punctuation that were not noted in review of the chart prior to signing ED Disposition - Plan for ED Patient: Disposition: Home or Assisted Living Chief Complaint: Cellulitis Diagnosis: Cellulitis of knee, left Instructions: Discharge Instructions for Cellulitis Prescriptions: Clindamycin HCl 300 mg PO [id number] 10 Days #40 cap Referrals: Sandrine Chavez MD [Primary Care Provider] - What to do if you have Problems For any increased pain, shortness of breath, bleeding, nausea or vomiting, chest pain, or any unexpected problems, contact your Primary Care Provider. Call [email or web address] ([phone]) or report to the closest Emergency Room. Call 911 if necessary. 05/26/18 1242 <Electronically signed by Miles Pro DO> Date Miles Pro DO Cosigner Signature (If Indicated): Date CC: Sandrine Chavez MD INTERNAL MEDICINE Observed: 04/29/2018 Status: F Source: [place] OFFICE VISIT 1:42 PM [facility] Medicine [address] [place] [address] [address] [place] [address] OFFICE VISIT Date of Service: 04/17/18 MR#: [id number] Acct: [id number] Name: LATOYA GARCIA Rep #: [id number] : 1990 Provider: Sandrine Chavez MD Age/Sex: 28/M Location[place] [facility] Status: Signed Intake Vital Signs04/17/18 Height 5 ft 11 in 04/17/18 Weight: 244 lb 04/17/18 Body Mass Index (BMI) 34.0 04/17/18 Blood Pressure 122/77 04/17/18 Blood Pressure Location Rt brachial Intake Visit Reasons: urine discoloration Chief Complaint: dark colored urine Is patient in pain?: No Allergies Penicillins Adverse Reaction (Verified 02/13/18 09:03) Unknown Medications bupropion HCl SR 150 mg tablet,12 hr sustained-release 150 mg PO BID #60 tab 03/27/18 [Rx Confirmed 03/27/18] [facility] Medical History Anxiety (Chronic) History of substance abuse (Acute) Surgical History History of tonsillectomy (Acute) history of facial reconstruction (Acute) Family History Father Myocardial infarction, Onset Age: 40 Grandfather Diabetes Social History Smoking Status: Current every day smoker alcohol intake: never substance use type: former substance user Date of last use: 01/06/18, heroin, methamphetamine what type of physical activity do you participate in: none HPI HPI Chief Complaint: dark colored urine Details: LATOYA GARCIA, is a 28yo M who presents to the office today due to complaints of dark colored urine. Symptom was symptoms started about 2 weeks ago after he got his Detrol shot. He experienced some abdominal pain which is now resolved however dark orange urine has persisted the patient. He reports an increase in his fluid intake without much resolution. He denies burning or pain during micturition. He also denies fever, chills, muscle aches or feeling of unwell. He denies illicit drug use at this time. However, screening was positive for barbiturates. ROS Const Constitutional: No weight change, body ache, chills, fatigue, sleep problems, fever(s), change in appetite, snoring, weakness, frequent falls, headache(s) or excessive sweating Eyes Eyes: No change in vision, eye pain, light sensitivity or blurry vision ENT ENT: No headache(s), abnormal hearing, ear pain, tinnitus, nasal congestion, sore throat or neck pain Resp Respiratory: No snoring, cough, shortness of breath or wheezing Cardio Cardiology: No excessive sweating, chest pain at rest, chest pain with exertion, shortness of breath, dyspnea on exertion, palpitations, orthopnea or lightheadedness Gastro GI: No abdominal pain, change in bowel habits, constipation, diarrhea, vomiting, nausea/dyspepsia or cramping Genitourinary Male: Positive for other (dark colored urine with a stronger odor. ); no painful urination, urinary incontinence, urinary frequency, urinary urgency, blood in urine or testicle pain Musc Musculoskeletal: No neck pain, abnormal walking, joint pain, back pain, limited range of motion, numbness or tingling Skin Skin: No redness, dry skin, itching, lesions, wounds or rash Neuro Neurology: No weakness, frequent falls, headache(s), abnormal hearing, abnormal walking, numbness, tingling, abnormal speech, dizziness or memory loss Psych Psychiatric: No change in appetite, No memory loss, No anxiety, No depression, No Thoughts of harming yourself/Others Endo Endocrine: No fatigue, excessive sweating, cold intolerance, increased thirst/drinking, heat intolerance, flushing or increased hunger Aller/Imm Allergy/Immunologic: No wheezing, itchy eyes, hives or seasonal allergy symptoms Sheldon/Lymp Hematologic/Lymphatic: No easy bleeding, easy bruising or enlarged lymph nodes Exam Const General: cooperative, no acute distress Orientation: alert, awake, oriented x3 HENMT Head: atraumatic, normocephalic, normal to inspection Ears: hearing grossly normal bilaterally Resp Effort AND Inspection: normal respiratory effort, able to speak in complete sentences Auscultation: Bilateral: Clear to Auscultation Cardio Rate: regular rate Rhythm: regular rhythm Heart Sounds: S1 normal, S2 normal GI Palpation: soft (Non tender.), no hepatosplenomegaly Neuro General: alert, awake, oriented x3, moves all extremities, CN's II-XI intact bilaterally Extrem General: no clubbing, cyanosis or edema Psych Appearance: grossly normal Mental Status: mental status grossly normal Mood: congruent mood Affect: normal affect Assessment AND Plan 1. Urine discoloration R39.89 Plan Symptoms been ongoing for about 2 weeks and was noted after his Vivitrol shot. He denies any prior episodes. No muscle aches. Initial mild abdominal pain which has now resolved. No burning, increased frequency of pain on urination. ??? Rhabdomyolysis Urinalysis ordered. Continue increase fluid intake. Follow-up with results. Orders Orders: 2. History of substance abuse Z87.898 Plan Currently resides in the [address] [place] [address]. States that his last drug use was months ago however recent urine test was positive for barbiturates. Drug screen ordered. Follow-up with results. This note was generated with [facility] dictation software. It may contain incorrect words, spelling, and punctuation that were not noted in checking the note before signing. Orders Orders: Coding Level of Care Code Off vis,new,level 3 Diagnoses Urine discoloration R39.89 History of substance abuse Z87.898 04/29/18 1342 <Electronically signed by Sandrine Chavez MD> Date Sandrine Chavez MD Cosigner Signature: Date (if applicable) CC: URINALYSIS, COMPLETE Collected: 04/17/2018 Status: F Source: [place] 4:00 PM [facility] REPOS[facility] Order Comment: How was Urine Obtained? MEDICAL RECORD SPECIALIST TO SPECIFY TYPE CODE TESTS RESULT OUT OF RANGE REFERENCE UNITS LAB L400.3000 Yellow COLOR Normal Yellow LAB L400.3050 Clear Normal CLARITY Turbid LAB L400.3200 Normal mg/dl Normal GLUCOSE, UR Normal LAB L400.3300 Negative mg/dL High BILIRUBIN URINE 1 Result Comment: COLOR OF URINE MAY AFFECT DIPSTICK RESULTS. LAB L400.3400 Negative mg/dl High KETONE UR 5 LAB L400.3465 1.002-1.030 Normal SP.GR. DIPSTX 1.030 LAB L400.3550 5.0 - 8.0 pH Normal UR 5.0 LAB L400.3600 Negative mg/dl High PROT DIPSTX 15 LAB L400.3700 Normal mg/dl High UROBILI 8 LAB L400.3750 Negative Normal NITRITE UR Negative LAB L400.3780 Negative /ul High OCCULT 10 BLOOD-UR LAB L400.3800 Negative /ul High LEUK ESTERASE 25 LAB L400.4050 0-5 /hpf Normal WBC 0 SEEN LAB L400.4100 0-5 /hpf Normal RBC-UA 0 SEEN LAB L400.4150 0-5 /hpf Normal SQUAM EPI 0 SEEN LAB L400.4300 None Seen /hpf Normal BACTERIA 0 SEEN LAB L400.4350 <or=2+ /hpf Normal MUCUS, URINE 0 SEEN LAB L400.4900 Normal AMORPHOUS 4+ Result Comment: Microscopic field is filled. Other elements may be obscured. Performed By: #### L400.0001 #### [place] [facility] [address] [place], [address] INTERNAL MEDICINE Observed: 03/27/2018 Status: F Source: [place] OFFICE VISIT 11:45 AM [facility] REPOS[facility] [address] [place] [address] [place] [address] OFFICE VISIT Date of Service: 03/27/18 MR#: [id number] Acct: [id number] Name: LATOYA GARCIA Rep #: [id number] : 1990 Provider: Joseph Hylton NP Age/Sex: 27/M Location[place] [facility] Status: Signed Intake Vital Signs03/27/18 Height 5 ft 11 in Intake Visit Reasons: 6 WK FU DEPRESSION, SMOKING CESSATION Chief Complaint: medication F/U Is patient in pain?: No Allergies Penicillins Adverse Reaction (Verified 02/13/18 09:03) Unknown Medications bupropion HCl SR 150 mg tablet,12 hr sustained-release 150 mg PO BID #60 tab 03/27/18 [Rx Confirmed 03/27/18] [facility] Medical History Anxiety (Chronic) History of substance abuse (Acute) Surgical History History of tonsillectomy (Acute) history of facial reconstruction (Acute) Family History Father Myocardial infarction, Onset Age: 40 Grandfather Diabetes Social History Smoking Status: Current every day smoker alcohol intake: never substance use type: former substance user Date of last use: 01/06/18, heroin, methamphetamine what type of physical activity do you participate in: none HPI HPI Chief Complaint: medication F/U Details: LATOYA GARCIA, is a 27 M who presents to the office today for a follow-up of his of his depression, anxiety, substance abuse, and tobacco abuse. The patient states that he is no longer using the nicotine replacement patch as he did not find it effective and he is currently using vapor cigarettes that give him 3 mg of nicotine per use. He states that he discontinue the trazodone as well because he did not like how that made him feel as well. As you recall he has failed trazodone and SSRI treatment for his depression. He states that his depression is his main concern. He denies any thoughts of harming self or others, though is receptive to trying an additional medication. He does routinely do counseling at the [address] [place] [address] which he continues out for his history of substance abuse. Denies any other acute complaints at this time. The patient otherwise denies any fever, chills, nausea, vomiting, shortness of breath, chest pain or pressure, palpitations, orthopnea, lower extremity edema, syncope or presyncopal episodes. ROS Const Constitutional: Positive for sleep problems (trouble sleeping at times) and headache(s) (sometimes); no weight change, body ache, chills, fatigue, fever(s), change in appetite, snoring, weakness, frequent falls or excessive sweating Eyes Eyes: No change in vision, eye pain, light sensitivity or blurry vision ENT ENT: Positive for headache(s) (sometimes); no abnormal hearing, ear pain, tinnitus, nasal congestion, sore throat or neck pain Resp Respiratory: No snoring, cough, shortness of breath or wheezing Cardio Cardiology: No excessive sweating, chest pain at rest, chest pain with exertion, shortness of breath, dyspnea on exertion, palpitations, orthopnea or lightheadedness Gastro GI: No abdominal pain, change in bowel habits, constipation, diarrhea, vomiting, nausea/dyspepsia or cramping Genitourinary Male: No painful urination, urinary incontinence, urinary frequency, urinary urgency, blood in urine, testicle pain or other Musc Musculoskeletal: No neck pain, abnormal walking, joint pain, back pain, limited range of motion, numbness, tingling or muscle weakness Skin Skin: No redness, dry skin, itching, lesions, wounds or rash Neuro Neurology: Positive for headache(s) (sometimes); no weakness, frequent falls, abnormal hearing, abnormal walking, numbness, tingling, abnormal speech, dizziness or memory loss Psych Psychiatric: No change in appetite, No memory loss, Positive for anxiety, Positive for depression (states that he doesn't feel that counseling is helping. ), No Thoughts of harming yourself/Others Endo Endocrine: No fatigue, excessive sweating, cold intolerance, increased thirst/drinking, heat intolerance, flushing or increased hunger Aller/Imm Allergy/Immunologic: No wheezing, itchy eyes, hives or seasonal allergy symptoms Sheldon/Lymp Hematologic/Lymphatic: No easy bleeding, easy bruising or enlarged lymph nodes Exam Const General: cooperative, comfortable, no acute distress Nutritional Appearance: average body habitus, well nourished Orientation: alert, oriented x3 Limitations: mental status not altered Resp Effort AND Inspection: normal respiratory effort, able to speak in complete sentences, normal respiratory pattern, symmetric chest movement, no audible wheezes, no cough Auscultation: Bilateral: Clear to Auscultation Cardio Palpation: normal PMI Rate: regular rate Heart Sounds: S1 normal, S2 normal, normal S1 and S2, no click, no gallops, no murmurs, no rubs Musc Musculoskeletal: No muscle weakness Neuro General: alert, awake, oriented x3, CN's II-XI intact bilaterally Speech: speech normal Gait: normal gait Motor: muscle tone normal throughout Psych Appearance: grossly normal Mental Status: mental status grossly normal Mood: anxious mood Affect: normal affect Speech and Movement: restless, speech clear Attitude: cooperative Thought Process: normal Thought Content: no obsessions, no delusions, no hallucinations, no homicidality, suicidality Assessment AND Plan 1. Current moderate episode of major depressive disorder without prior episode F32.1 Plan Patient denies any thoughts of harming self or other at this time, however feels that his depression is inadequately controlled. He continues with counseling therapy in the [facility]. We will trial him on Wellbutrin 150 mg SR every morning for 3 days and then increase to twice daily. Hopefully this will help with both his depression and his tobacco abuse. He previously failed trazodone therapy and SSRI therapy. Patient will follow-up in 2 months or sooner 2. Tobacco abuse Z72.0 Plan Patient failed nicotine replacement patch and is receptive to trying Wellbutrin treatment. Hopefully this will help with his nicotine cravings and with his depression as well. 3. History of substance abuse Z87.898 Plan Patient to continue with the [facility]. He denies any relapses at this time. He is following up with Dr. Rivera who is going to put him on a 3 month regimen of Vivitrol therapy. Plan Detail Other Medications New: bupropion HCl SR (Wellbutrin SR) first three days take one tablet daily 150 mg PO BID in morning then increase to one tab twice daily Coding Level of Care Code Off vis,est,level 3 Diagnoses Current moderate episode of major depressive disorder without prior episode F32.1 Depression Type: major depressive disorder Major depression recurrence: single episode Active/Remission status: currently active Major depression episode severity: moderate Tobacco abuse Z72.0 History of substance abuse Z87.898 03/27/18 1145 <Electronically signed by Joseph GOODWIN> Date Joseph GOODWIN Cosigner Signature: Date (if applicable) CC: INTERNAL MEDICINE Observed: 02/14/2018 Status: F Source: [place] OFFICE VISIT 1:17 PM [facility] [address] [place] [address] [place] [address] OFFICE VISIT Date of Service: 02/13/18 MR#: [id number] Acct: [id number] Name: LATOYA GARCIA Rep #: [id number] : 1990 Provider: Joseph Hylton NP Age/Sex: 27/M Location[place] [facility] Status: Signed Intake Vital Signs02/13/18 Height 5 ft 11 in 02/13/18 Weight: 226 lb 02/13/18 Body Mass Index (BMI) 31.5 02/13/18 Blood Pressure 117/77 02/13/18 Blood Pressure Location Lt brachial Intake Visit Reasons: F/U Chief Complaint: medication F/U Is patient in pain?: No Allergies Penicillins Adverse Reaction (Verified 02/13/18 09:03) Unknown Medications melatonin 5 mg tablet 5 mg PO HS PRN #30 tab 01/31/18 [Rx Confirmed 02/13/18] nicotine 14 mg/24 hr daily transdermal patch 14 mg TRANSDERMAL QDAY #42 patch 02/13/18 [Rx Confirmed 02/13/18] nicotine 7 mg/24 hr daily transdermal patch 1 patch TRANSDERMAL Q24H #14 patch 02/13/18 [Rx Confirmed 02/13/18] trazodone 50 mg tablet 50 mg PO QHS #30 tab 02/13/18 [Rx Confirmed 02/13/18] PFSH Medical History Anxiety (Chronic) History of substance abuse (Acute) Surgical History History of tonsillectomy (Acute) history of facial reconstruction (Acute) Family History Father Myocardial infarction, Onset Age: 40 Grandfather Diabetes Social History Smoking Status: Current every day smoker alcohol intake: never substance use type: former substance user Date of last use: 01/06/18, heroin, methamphetamine what type of physical activity do you participate in: none HPI HPI Chief Complaint: medication F/U Details: LATOYA GARCIA, is a 27 M who presents to the office today for a follow-up for his depression and anxiety. At his last visit he was started on sertraline 50 mg daily, but he feels this has been ineffective and, in fact, has caused him to have mood swings and anger outbursts. He has continued to take the medication, but is wanting to try a different antidepressant. He continues to note that he does have some problems falling asleep. He endorses some difficulty falling asleep and staying asleep due to rumination and restlessness. He denies any specific suicidal or homicidal thoughts, delusions, hallucinations, or psychotic features. He denies any symptoms associated with panic attacks including shortness of breath and chest pain. He did not have the labs that were ordered at last visit. The patient is currently residing in the [facility], operated by [facility] here in [place], and notes that he has been abstinent from illicit substances for the past 2 weeks. He notes that 2 weeks ago he did have a relapse of a one-time use of heroin. The patient does state that he smokes one half pack per day of cigarettes and he is willing to discuss smoking cessation options. The patient denies any acute complaints today. The patient otherwise denies any fever, chills, nausea, vomiting, palpitations, orthopnea, lower extremity edema, syncope or presyncopal episodes. ROS Const Constitutional: Positive for sleep problems (Difficulty falling and staying asleep); no weakness, frequent falls or fatigue Eyes Eyes: No blurry vision, change in vision, double vision or discharge ENT ENT: No abnormal hearing, ear pain, ear pressure or dizziness/vertigo Resp Respiratory: No shortness of breath, cough or wheezing Cardio Cardiology: No chest pain at rest or chest pain with exertion Gastro GI: No abdominal pain or change in bowel habits Genitourinary Male: No difficulty urinating or burning urination Musc Musculoskeletal: No joint pain, back pain, limited range of motion, joint swelling, muscle weakness, tingling or numbness Skin Skin: No change in skin color, wounds, rash or itching Neuro Neurology: No abnormal hearing, tingling, numbness, weakness, unsteady gait/balance, dizziness, frequent falls, loss of vision or memory loss Psych Psychiatric: Positive for mood swings, No Thoughts of harming yourself/Others, No memory loss, No hallucinations, No paranoia Endo Endocrine: No fatigue, increased thirst/drinking, increased urination, increased hunger or heat intolerance Aller/Imm Allergy/Immunologic: No itchy eyes, wheezing or seasonal allergy symptoms Sheldon/Lymp Hematologic/Lymphatic: No easy bleeding, easy bruising or enlarged lymph nodes Exam Const General: cooperative, comfortable, no acute distress Nutritional Appearance: average body habitus, well nourished Orientation: alert, oriented x3 Limitations: mental status not altered Resp Effort AND Inspection: normal respiratory effort, able to speak in complete sentences, normal respiratory pattern, symmetric chest movement, no audible wheezes, no cough Auscultation: Bilateral: Clear to Auscultation Cardio Palpation: normal PMI Rate: regular rate Heart Sounds: S1 normal, S2 normal, normal S1 and S2, no click, no gallops, no murmurs, no rubs Musc Musculoskeletal: No muscle weakness Neuro General: alert, awake, oriented x3, CN's II-XI intact bilaterally Speech: speech normal Gait: normal gait Motor: muscle tone normal throughout Psych Appearance: grossly normal Mental Status: mental status grossly normal Mood: anxious mood Affect: normal affect Speech and Movement: restless, speech clear Attitude: cooperative Thought Process: normal Thought Content: no obsessions, no delusions, no hallucinations, no homicidality, suicidality Office Procedures Smoking Cessation Smoking Cessation A 7 minute, face to face discussion occurred with the patient regarding smoking cessation. Risks of continued tobacco abuse was covered such as heart disease, stroke, cancer, and emphysema, among others. The many health benefits quitting, was discussed and the patient was educated on the fact that smokers lose an average of 10 minutes of life for every cigarette smoked. We discussed the pathophysiology of smoking addiction and its dual addictive components of nicotine addiction and psychological addiction. Nicotine replacement was discussed. We also talked about medications that may be helpful such as Bupropion (Wellbutrin) or Varenicline (Chantix). Advise was also offered on preoccupying the mind during trigger times with activities such as chewing gum, sucking on hard candy or utilizing their hands with an activity such as drawing. Currently the patient is smoking 0.5 ppd. At this time, LATOYA elects to try the nicotine replacement patch. We will continue to monitor the tobacco abuse and encourage cessation. You may call the free hotline 5-168-IYPE-NOW. People who use this line are THREE times more likely to remain smoke free. Time Spent 3-10 minutes: Yes greater than 10 minutes: No Assessment AND Plan 1. Depression F32.9 Plan Again the patient denies any homicidal or suicidal thoughts. He is agreeable to trying a different medication and discontinuing the sertraline. Will start on trazodone 50 mg nightly to begin tonight, and patient is instructed to take the sertraline every other day 3 doses and then discontinue. Patient is instructed to call in 2 weeks to report how trazodone is doing, may increase to 100 mg at that time if ineffective. Hopefully the trazodone therapy will help with both his depression and insomnia 2. Insomnia G47.00 Plan Patient does note some difficulty falling and staying asleep, waking 3-4 times per night. He is started on trazodone as noted above today for depression, this will likely help with his sleep as well. 3. History of substance abuse Z87.898 Plan He remains in a recovery program and has been sober for 2 weeks now. He does have a history of heroin, methamphetamine, marijuana, and tobacco use. Ongoing cessation encouraged. 4. Tobacco abuse Z72.0 Plan A 7 minute, face to face discussion occurred with the patient regarding smoking cessation. Risks of continued tobacco abuse was covered such as heart disease, stroke, cancer, and emphysema, among others. The many health benefits quitting, was discussed and the patient was educated on the fact that smokers lose an average of 10 minutes of life for every cigarette smoked. We discussed the pathophysiology of smoking addiction and its dual addictive components of nicotine addiction and psychological addiction. Nicotine replacement was discussed. We also talked about medications that may be helpful such as Bupropion (Wellbutrin) or Varenicline (Chantix). Advise was also offered on preoccupying the mind during trigger times with activities such as chewing gum, sucking on hard candy or utilizing their hands with an activity such as drawing. Currently the patient is smoking 0.5 ppd. At this time, LATOYA elects to try the nicotine replacement patch. 14 mg patch apply daily for 6 weeks then 7 mg patch applied daily for 2 weeks. Instructed not to smoke cigarettes while on the patch we will continue to monitor the tobacco abuse and encourage cessation. You may call the free hotline 8-120-BOEQ-NOW. People who use this line are THREE times more likely to remain smoke free. Plan Detail Other Medications New: nicotine Apply 14 mg patch daily for 6 weeks and then 7 mg pa1 patch Transdermal Q24H tch daily for 2 weeks Discontinued: Additional Comments Patient is encouraged to have the baseline lab work drawn that was ordered at last visit. He is instructed on available locations to have that done. Follow Up 6 weeks or sooner Coding Level of Care Code Off vis,est,level 3 Diagnoses Depression F32.9 Insomnia G47.00 History of substance abuse Z87.898 Tobacco abuse Z72.0 Additional Codes Time Spent - 3-10 minutes: Yes ([id number]) 02/14/18 1317 <Electronically signed by Joseph GOODWIN> Date Joseph GOODWIN Cosigner Signature: Date (if applicable) CC: CBC W/DIFF, AUTOMATED Collected: 02/13/2018 Status: F Source: [place] 2:50 PM [facility] REPOSITORY TYPE CODE TESTS RESULT OUT OF RANGE REFERENCE UNITS LAB L100.1000 4.4-11.0 K/mm3 Normal WBC 7.4 LAB L100.1200 4.6-6.2 M/mm3 Normal RBC 4.84 LAB L100.1300 13.0-16.5 g/dl Normal HGB 14.8 LAB L100.1400 40-54 % Normal HCT 44.0 LAB L100.1500 80-94 fL Normal MCV 90.9 LAB L100.1600 27.0-32.0 pg Normal MCH 30.6 LAB L100.1700 32-36 g/gl Normal MCHC 33.6 LAB L100.1810 11.6-14.6 % Normal RDW CV 13.1 LAB L100.1820 35.1-43.9 fl Normal RDW SD 43.2 LAB L100.1900 150-450 K/mm3 Normal PLT 186 LAB L100.2000 6.2-12.0 fl Normal MPV 9.4 LAB L100.2100 47-70 % Low NEUT% 42.5 LAB L100.2200 19-41 % High LY% 42.5 LAB L100.2300 0-10 % High MONO% 12.5 LAB L100.2400 0-5 % Normal EO% 2.3 LAB L100.2500 0-1 % Normal BASO% 0.1 LAB L100.2550 0.0-0.9 % Normal IM GRAN % 0.100 Result Comment: IG% - Immature Granulocytes (promyelocytes, myelocytes and metamyelocytes) > 1% indicates that a LEFT SHIFT is Present. LAB L100.2620 2.0-7.7 X10 3/uL Normal Absolute Neut 3.2 LAB L100.2720 0.83-4.51 X10 3/ul Normal Absolute Lymph 3.15 Performed By: #### L100.0100 #### [facility] [address] [place], [address] COMPREHENSIVE METABOLIC Collected: 02/13/2018 Status: F Source: [facility] 2:50 PM [facility] REPOSITORY TYPE CODE TESTS RESULT OUT OF RANGE REFERENCE UNITS LAB L501.0100 74-106 mg/dL Normal GLU 99 Result Comment: Please note revised GLUCOSE reference range effective 2017. LAB L501.1000 7-18 mg/dL High BUN 20 LAB L501.1100 0.70-1.30 mg/dL Normal CREAT,SERUM 0.74 Result Comment: The validity of the calculated GFR AND GFRAA in patients over 70 years has not been determined. Clinical correlation is essential. LAB L501.1110 >60 mL/min Normal EST GFR 135 Result Comment: Non- GFR Calc LAB L501.1115 >60 mL/min Normal EST GFR - AA 164 Result Comment: GFR Calc LAB L501.1300 10-20 RATIO High BUN/CRE 26.9 LAB L501.1500 6.4-8.2 g/dL T Normal PROT 7.7 LAB L501.1800 3.2-5.0 g/dL Normal ALB 4.0 LAB L501.1950 2.2-4.2 g/dL Normal GLOB 3.7 LAB L501.2000 0.9-2.4 RATIO Normal A/G 1.1 LAB L501.2200 8.5-10.1 mg/dL CA Normal 8.7 LAB L501.4100 15-37 U/L Normal AST 28 Result Comment: Moderate Hemolysis, Result may be falsely increased. LAB L501.4305 45-117 U/L Normal ALK P 79 LAB L501.4405 16-61 U/L Normal ALT 42 Result Comment: Please note revised ALT reference range effective 2017. LAB L501.4600 0.20-1.00 mg/dL Normal T BILI 0.20 LAB L501.5300 136-145 mmol/L Normal NA 139 LAB L501.5600 3.5-5.1 mmol/L Normal K 3.9 Result Comment: Moderate Hemolysis, Result may be falsely increased. LAB L501.5900 98-107 mmol/L Normal CL 103 LAB L501.6100 21.0-32.0 mmol/L Normal CO2 28.0 LAB L501.6200 5-15 Normal 8 GAP Performed By: #### L500.4050, L501.9520 #### [facility] [address] [place], [place], [id number] THYROID STIM HORMONE Collected: 02/13/2018 Status: F Source: [place] (T[facility]) 2:50 PM [facility] REPOSITORY TYPE CODE TESTS RESULT OUT OF RANGE REFERENCE UNITS LAB L501.9520 0.358-3.74 uIU/mL Normal TSH 1.19 Performed By: #### L500.4050, L501.9520 #### [facility] [address] [place], [place], [id number] HEPATITIS C ANTIBODIES Collected: 02/13/2018 Status: F Source: [place] 2:50 PM [facility] REPOSITORY TYPE CODE TESTS RESULT OUT OF RANGE REFERENCE UNITS LAB L3100.0650 0.0-0.9 s/co ratio Normal HEP C AB 0.1 Result Comment: Negative: < 0.8 Indeterminate: 0.8 - 0.9 Positive: > 0.9 The CDC recommends that a positive HCV antibody result be followed up with a HCV Nucleic Acid Amplification test (923408). Performed at: - [facility] [address] [id number] Economics Consultant: Kolby Butcher PhD, Phone: [phone] Performed By: #### L3100.0625 #### [facility] (refer to report for specific site) refer to report for address and phone number INTERNAL MEDICINE Observed: 01/14/2018 Status: F Source: [place] OFFICE VISIT 4:06 PM [facility] [address] [place] [address] OFFICE VISIT Date of Service: 01/14/18 MR#: [id number] Acct: [id number] Name: LATOYA GARCIA Rep #: [id number] : 1990 Provider: Joseph Hylton NP Age/Sex: 27/M Location[place] [facility] Status: Signed Intake Vital Signs01/14/18 Height 5 ft 11 in Intake Visit Reasons: PHYSICAL AND TB SHOT Chief Complaint: establish care Is patient in pain?: No Allergies Penicillins Adverse Reaction (Verified 04/13/17 23:32) Unknown Medications sertraline 50 mg tablet 50 mg PO QDAY #30 tab 01/14/18 [Rx Confirmed 01/14/18] [facility] Medical History Anxiety (Acute) History of substance abuse (Acute) Surgical History History of tonsillectomy (Acute) history of facial reconstruction (Acute) Family History Father Myocardial infarction, Onset Age: 40 Grandfather Diabetes Social History Smoking Status: Current every day smoker alcohol intake: never substance use type: former substance user Date of last use: 01/06/18, heroin, methamphetamine what type of physical activity do you participate in: none Questionnaire Depression Screen PHQ-2/9 PHQ-2 Over the last 2 weeks, how often have you been bothered by any of the following problems? 1. Little interest or pleasure in doing things: nearly every day 2. Feeling down, depressed, or hopeless: more than half the days Total score: 5 If score is 2 or greater, continue 3. Trouble falling or staying asleep, or sleeping too much: nearly every day 4. Feeling tired or having little energy: several days 5. Poor appetite or overeating: several days 6. Feeling bad about yourself - or that you are a failure or have let yourself and your family down: nearly every day 7. Trouble concentrating on things, such as reading the newspaper or watching television: not at all 8. Moving or speaking so slowly that other people could have noticed? - Or the opposite - being so fidgety or restless that you have been moving around a lot more than usual: nearly every day 9. Thoughts that you would be better off or of hurting yourself in some way: not at all Total score: 16 If you checked off any problems, how difficult have these problems made it for you to do your work, take care of things at home, or get along with other people?: somewhat difficult Source: Developed by Drs. Morgan Reina, Janie Chavarria, Peter Arnett and colleagues, with an educational brett from [employer]. Scoring: Total Score Depression Severity Action 1-4 Minimal depression No action needed 5-9 Mild depression Repeat PHQ-9 at follow up 10-14 Moderate depression Make tx plan,consider counseling, fup, prescription HPI HPI Chief Complaint: establish care Details: LATOYA GARCIA, is a 27 M who presents to the office today for an establishment visit/physical for entry into the 180 program. He has a past medical history which is significant for anxiety, depression, and polysubstance abuse. History of heroin, meth, marijuana, and tobacco abuse. Last use of heroin was on 01/06/2018 and was in detox program 5 weeks ago. He is currently wishing into the want any program. The patient states that he has been using heroin for at least a year and a half now. He denies any current skin infections or dental infections. 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 He denies any acute complaints at this time. However he does state that he is very anxious and his PHQ 9 score was a 16 which demonstrates moderately severe depression. The patient denies any past medical history of depression or on being on any antidepressants. He refuses the influenza vaccine and states that he has not had screening blood work since he was a child. The patient otherwise denies any fever, chills, nausea, vomiting, shortness of breath, chest pain or pressure, palpitations, orthopnea, lower extremity edema, syncope or presyncopal episodes. ROS Const Constitutional: No weight change, body ache, chills, fatigue, sleep problems, fever(s), change in appetite, snoring, weakness, frequent falls, headache(s) or excessive sweating Eyes Eyes: No change in vision, eye pain, light sensitivity or blurry vision ENT ENT: No headache(s), abnormal hearing, ear pain, tinnitus, nasal congestion, sore throat or neck pain Resp Respiratory: No snoring, cough, shortness of breath or wheezing Cardio Cardiology: No excessive sweating, chest pain at rest, chest pain with exertion, shortness of breath, dyspnea on exertion, palpitations, orthopnea or lightheadedness Gastro GI: No abdominal pain, change in bowel habits, constipation, diarrhea, vomiting, nausea/dyspepsia or cramping Musc Musculoskeletal: No neck pain, abnormal walking, joint pain, back pain, limited range of motion, numbness, tingling or muscle weakness Skin Skin: No redness, dry skin, itching, lesions, wounds or rash Neuro Neurology: No weakness, frequent falls, headache(s), abnormal hearing, abnormal walking, numbness, tingling, abnormal speech, dizziness or memory loss Psych Psychiatric: No change in appetite, No memory loss, Positive for anxiety, Positive for depression, No Thoughts of harming yourself/Others Endo Endocrine: No fatigue, excessive sweating, cold intolerance, increased thirst/drinking, heat intolerance, flushing or increased hunger Aller/Imm Allergy/Immunologic: No wheezing, itchy eyes, hives or seasonal allergy symptoms Sheldon/Lymp Hematologic/Lymphatic: No easy bleeding, easy bruising or enlarged lymph nodes Exam Const General: cooperative, comfortable, no acute distress Nutritional Appearance: average body habitus, well nourished Orientation: alert, oriented x3 Limitations: mental status not altered HENMT Head: normal to inspection Ears: hearing grossly normal bilaterally Nose: external nose normal Eyes General: appearance normal, both eyes and all related structures Resp Effort AND Inspection: normal respiratory effort, able to speak in complete sentences, normal respiratory pattern, symmetric chest movement, no audible wheezes, no cough Auscultation: Bilateral: Clear to Auscultation Cardio Palpation: normal PMI Rate: regular rate Heart Sounds: S1 normal, S2 normal, normal S1 and S2, no click, no gallops, no murmurs, no rubs GI Inspection: normal to inspection Auscultation: normal bowel sounds, no hyperactive bowel sounds, no hypoactive bowel sounds Palpation: soft, no hepatosplenomegaly External: normal external exam, no hernia, no inguinal lymphadenopathy Musc Musculoskeletal: No joint tenderness, decreased ROM or muscle weakness Skin General: no rashes or lesions noted, elasticity normal, turgor normal Lesions: no lesions Rashes: no rashes Other: track lines b/l antecubital Neuro General: alert, awake, oriented x3, CN's II-XI intact bilaterally Speech: speech normal Gait: normal gait Motor: muscle tone normal throughout Extrem General: normal to inspection, normal gait, no edema, no pedal edema Psych Appearance: grossly normal Mental Status: mental status grossly normal Mood: anxious mood Affect: anxious affect Attitude: cooperative Thought Process: normal Assessment AND Plan 1. Depression F32.9 Plan The patient does have both depression and anxiety. No current thoughts of harming self or others. Given his situation, recommended that consider pharmacologic therapy. Patient is agreeable to SSRI treatment. Will start on sertraline 50 daily and instructed patient to follow-up in 4 weeks. Will discuss tobacco cessation at that time. Discussed red flag symptoms with medication and when to seek medical attention. 2. Anxiety F41.9 Plan Plan as above. Orders Orders: 3. History of substance abuse Z87.898 Plan Screening labs done. Will address tobacco cessation at next appointment. Patient will be admitted into the 180 program Given his past history of heroin, methamphetamine, marijuana, and tobacco abuse. This note was generated with [facility] dictation software. It may contain incorrect words, spelling, and punctuation that were not noted in checking the note before signing. Orders Orders: Plan Detail Other Orders Orders: Other Medications New: Follow Up 4 weeks or sooner if needed Coding Level of Care Code Off vis,new,level 3 Diagnoses Depression F32.9 Anxiety F41.9 History of substance abuse Z87.898 01/14/18 1606 <Electronically signed by Joseph Hylton MAKEUP SALES CONSULTANT-C> Date Joseph Hylton MAKEUP SALES CONSULTANT-C Cosigner Signature: Date (if applicable) CC: ALLERGIES ALLERGIES DATE TYPE / CODE NAME / CODE REACTION SEVERITY SOURCE 12/09/2018 Drug Penicillins/ Unknown Unknown [facility] Allergy/4160 [id number]([facility] [address](SNOMED XNORM) Repository CT) ENCOUNTERS ENCOUNTERS ADMIT/DISCHARGE ACCOUNT ADMITTING ENCOUNTER LOCATION SOURCE NUMBER CLASS 12/09/2018/ [id number] Ambulatory [facility] [place] [facility] [place] 12/04/2018/ [id number] Emergency [place] 9 [facility] ing:ED Repository 12/03/2018/ [id number] Ambulatory BMSBuilding:B [place] [facility] 1 [place] 10/26/2018/ [id number] Emergency [place] [facility] 3 [facility] ing:ED Repository 05/28/2018/ [id number] [facility], Inpatient [place] [address] 1 [place] Encounter [facility] ing:[id number]: Repository IF430Vxp: 1 05/28/2018 [id number] [facility], Ambulatory BMSBuilding:B [place] 9 [place] Repository 05/28/2018 [id number] [facility], Ambulatory BMSBuilding:B [place] 9 [place] Repository 05/26/2018/ [id number] Emergency [place] 3 [facility] ing:ED Repository 04/17/2018/ [id number] Ambulatory BMSBuilding:B [place] [facility] 4 [place] [place] 04/17/2018 [id number] Ambulatory [place] 0 [facility] ing:[facility] Repository 03/27/2018/ [id number] Ambulatory BMSBuilding:B [place] [facility] 8 [place] 02/13/2018 [id number] Ambulatory [place] 0 [facility] ing:LAB Repository 02/13/2018/ [id number] Ambulatory BMSBuilding:B [place] 8 0 [facility] 01/14/2018/ [id number] Ambulatory BMSBuilding:B [place] [facility] 5 [facility] PAYERS PAYERS ENCOUNTER GUARANTOR PAYER SUBSCRIBER SOURCE 12/09/2018 LATOYA [id number] Primary LATOYA D [place] Insurance:MOLIN[employer]olic MARKSDOB: [facility] Number: [id number] [address]Mmv: 330 [id number] Repository [phone] () Date:[id number] [address]ZS: 12/09/2018 Secondary NOT GIVENUNK [place] Insurance:SELF PAY [facility] Number: Effective Repository Date:2018-12-09 12/04/2018 LATOYA Rojas [id number] Primary LATOYA D [place] Insurance:MOL[place]olic MARK[place]OB: [place] Number: [id number] 26433Zgd: 330 [id number] Repository [phone] () Date:[id number] [address]AF: 12/04/2018 Secondary NOT GIVENUNK [place] Insurance:SELF PAY [facility] Number: Effective Repository Date:2018-12-04 12/03/2018 LATOYA Rojas [id number] Primary LATOYA D Stacey OLIVIA Insurance:MOLINAPolic MARKSDOB: [facility] Number: [id number] [facility] 10078Mdm: 330 [id number] Repository [phone] () Date:8414-08-34KS [address] [place] [address]HD: 12/03/2018 Secondary NOT GIVENUNK [place] Insurance:SELF PAY [facility] Number: Effective Repository Date:2018-12-03 10/26/2018 LATOYA D [id number] Primary LATOYA D [place] Insurance:MOLINAPolic MARKSDOB: [facility] [place], [place], [place] Number: [id number] [facility] [address]Vhd: 330 [id number] Repository [phone] () Date:2056-72-47IZ [address] [address]MD: 10/26/2018 Secondary NOT GIVENUNK St[place] Insurance:SELF PAY [facility] Number: Effective Repository Date:2018-10-26 05/28/2018 LATOYA D [id number] Primary LTAOYA D Stacey L[place] Insurance:MOLINAPolic MARKSDOB: [facility] [place] Number: [id number] Hospital [address]Lcf: 330 [id number] Repository [phone] () Date:[id number] [address]IS: 05/28/2018 Secondary NOT GIVENUNK [place] Insurance:SELF PAY [facility] Number: Effective Repository Date:2018-05-27 05/28/2018 LATOYA D [id number] Primary LATOYA D [place] Insurance:MOLINAPolic MARKSDOB: [facility] [place] Number: [id number] [facility] [address]Vwa: 330 [id number] Repository [phone] () Date:[id number] [address]KJ: 05/28/2018 Secondary NOT GIVENUNK St[place] Insurance:SELF PAY [facility] Number: Effective Repository Date:2018-05-28 05/28/2018 LATOYA D [id number] Primary LATOYA D [place] Insurance:MOLINAPolic MARKSDOB: [facility] mohamud [place] Number: [id number] [facility] [address]Qki: 330 [id number] Repository [phone] () Date:[id number] [address]WB: 05/28/2018 Secondary NOT GIVENUNK [place] Insurance:SELF PAY [facility] Number: Effective Repository Date:2018-05-28 05/26/2018 LATOYA D [id number] Primary LATOYA D [place] Insurance:MOLINAPolic MARKSDOB: [facility] mohamud [place] Number: [id number] Hospital 84908Inx: 330 [id number] Repository [phone] () Date:[id number] [address] [address]XB: 05/26/2018 Secondary NOT GIVENUNK [place] Insurance:SELF PAY [facility] Number: Effective Repository Date:2018-05-26 04/17/2018 LATOYA D [id number] Primary LATOYA D [place] OLIVIA Insurance:MOLINAPolic MARKSDOB: [facility] mohamud [place] y Number: [id number] [facility] [address]Xgf: 330 [id number] Repository [phone] () Date:5064-63-86CG [address] [address]HY: 04/17/2018 Secondary NOT GIVENUNK Stacey Insurance:SELF PAY [facility] Number: Effective Repository Date:2018-04-17 04/17/2018 LATOYA D [id number] Primary LATOYA D [place] OLIVIA Insurance:MOLINAPolic MARKSDOB: [facility] mohamud [place] y Number: [id number] Hospital [address]Dfh: [phone] [id number] Repository [phone] () Date:4661-44-63WL [address] [address]YY: 04/17/2018 Secondary NOT GIVENUNK [place] Insurance:SELF PAY [facility] Number: Effective Repository Date:2018-04-17 03/27/2018 LATOYA [id number] Primary LATOYA Bob Ibarra OLIVIA Insurance:MOLINAPolic MARKSDOB: [facility] [place] Number: [id number] [facility] [address]Vhp: 330 [id number] Repository [phone] (HP) Date:2480-78-86MZ [address] [address]DS: 03/27/2018 Secondary NOT GIVENUNK Stacey Insurance:SELF PAY [facility] Number: Effective Repository Date:2018-03-26 02/13/2018 LATOYA KERR Primary LATOYA [id number] [place] Insurance:MOLINAPolic MARKSDOB: [facility] [place] Number: [id number] Hospital [address]Rda: [phone] [id number] Repository [phone] (HP) Date:1587-11-12YF [address] [address]GN: 02/13/2018 Secondary NOT GIVENUNK [place] Insurance:SELF PAY [facility] Number: Effective Repository Date:2018-02-13 02/13/2018 LATOYA KERR Primary LATOYA Ibarra [id number] [place] Insurance:MOLINAPolic MARKSDOB: [facility] [place] Number: [id number] [facility] [address]Klu: [phone] [id number] Repository [phone] (HP) Date:8706-07-24YB [address] [address]HT: 02/13/2018 Secondary NOT GIVENUNK Stacey Insurance:SELF PAY [facility] Number: Effective Repository Date:2018-02-13 01/14/2018 LATOYA KERR Primary LATOYA [id number] [place] Insurance:MEDICAIDPol MARKSDOB: [facility] [place], [place] Number: [id number] Hospital [address]Xzi: ([phone]) [id number] Repository [phone] () Date:2018-01-14 01/14/2018 Secondary NOT GIVENUNK [place] Insurance:SELF PAY [facility] Effective Repository Date:2018-01-14
== END 2018-12-04 13:38 | disposition home or self-care (01) ==
LOC: ED 12:39
PROVIDERS: Emergency Provider Emergency Medicine; Family Provider Internal Medicine; PCP Internal Medicine
DX: S01.21XA Laceration without foreign body of nose, initial encounter (principal); W16.522A Jumping or diving into swimming pool striking bottom causing other injury, initial encounter; Y93.12 Activity, springboard and platform diving; Y92.34 Swimming pool (public) as the place of occurrence of the external cause; Z72.0 Tobacco use
CPT/HCPCS: 12011; 70160; 99283

== ENCOUNTER 2019-05-27 15:03 | Observation (INO) | payer MEDICAID, SELFPAY ==
[2018-12-17 14:48] VITALS: BMI 29.1
[2019-05-27 15:17] VITALS: BMI 28.7
[2019-05-27 15:37] VITALS: BP 115/71; PULSE 73; RESP 18; TEMP 36.9; O2SAT 99
[2019-05-27] MEDS: Buprenorphine HCl 2 MG TAB.SUBL SL ×2 (15:44→23:38)
[2019-05-27] MEDS: cloNIDine HCl 0.1 MG Tablet PO ×2 (15:44→21:35)
[2019-05-27] MEDS: Pramipexole Di-HCl 0.25 MG Tablet PO (15:44)
[2019-05-27] MEDS: Methocarbamol 750 MG Tablet PO ×2 (15:45→21:45)
[2019-05-27] MEDS: Dicyclomine 10 MG Capsule 20 MG PO (15:45)
[2019-05-27] MEDS: hydrOXYzine PAM 25 MG Capsule 50 MG PO ×2 (15:46→21:46)
[2019-05-27 15:49] VITALS: BP 115/71; PULSE 73; RESP 18; TEMP 36.9
[2019-05-27 15:52] VITALS: PULSE 90
--- NOTE | 2019-05-27 16:34 | PCM.HP.STD ---
Problem List (1) Tobacco abuse Status: Chronic (2) Depression Status: Chronic Qualifiers: (3) Anxiety Status: Chronic History of Present Illness Date of Admission: 05/27/19 Chief Complaint: Acute opiate withdrawal. The patient is a 29 year old M with past medical history as mentioned above presented to the [facility] office requesting admission for acute opiate withdrawal. Patient has been using IV heroin 3 to 5 g every day for the last 4 months and his last use was yesterday. Before that, he was clean for about 2 months and he has been using IV heroin daily one year before. He admitted using occasional with amphetamines. His main presenting symptoms today were body pains and aches, generalized, mild, involving both upper and lower extremities as well as his back, associated with restlessness and anxiety as well as nausea and without aggravating or relieving factors. He denied abdominal pain or cramps, denies constipation or diarrhea. His vital signs are stable. Past Medical History Past Medical History (Chronic Problems): Chronic Problems (Last Reviewed 12/17/18 @ 14:47 by Jigna Gleason) Tobacco abuse (Chronic) Insomnia (Chronic) Depression (Chronic) Anxiety (Chronic) Medical History: Medical History (Last Reviewed 12/17/18 @ 14:47 by Jigna Gleason) Anxiety (Chronic) F41.9 Allergies No Known Allergies Allergy (Verified 05/27/19 15:26) Surgical History: Surgical History (Last Reviewed 12/17/18 @ 14:47 by Jigna Gleason) History of tonsillectomy Z98.890, Z90.89 history of facial reconstruction following an accident Surgical History: - - Adenoidectomy. Psychiatric History: Anxiety, Depression Lives: With Family Smoking Status: Current every day smoker Tobacco Use: Cigarettes Alcohol: None Drugs: Heroin, - - Amphetamines. - *Family History Maternal Family History: Family History (Last Reviewed 12/17/18 @ 14:47 by Jigna Gleason) Father Myocardial infarction, Onset Age: 40 Grandfather Diabetes Paternal Family History: Family History (Last Reviewed 12/17/18 @ 14:47 by Jigna Gleason) Father Myocardial infarction, Onset Age: 40 Grandfather Diabetes Review of Systems Constitutional: Reports: Malaise. Denies: Anorexia, Chills, Fever, Weakness Eyes: Denies: Blurred vision, Double vision, Drainage, Redness HEENT: Denies: Difficulty Hearing, Ear Pain, Eye Pain, Nasal Congestion, Sore Throat Cardiovascular: Denies: Chest Pain, Chest Pressure, Edema, Heaviness, Light Headedness, Orthopnea, Paroxysmal Noc. Dyspnea, Syncope Respiratory: Denies: Cough, Pleuritic Pain, Shortness of Breath, Sputum production, Wheezing Gastrointestinal: Reports: Nausea. Denies: Abdominal Pain, Constipation, Diarrhea, Vomiting Genitourinary: Denies: Dysuria, Frequency, Hematuria Musculoskeletal: Reports: Arm Pain, Back Pain, Leg Pain Skin: Denies: Dryness, Rash Neurological: Reports: Tremor. Denies: Balance problems, Double vision, Change in Speech, Slurred speech, Confusion, Focal weakness, Incoordination, Numbness Psychiatric: Reports: Anxiety, Depression. Denies: Homicidal Ideations, Suicidal Ideations Endocrine: Denies: Change in Body Habitus, Polydipsia, Polyuria VTE Information - Inpt Only VTE Present on Admission: No VTE Mechan Device Prophylaxis: None VTE Pharm Prophylaxis ordered?: No - Physical Exam General: Alert, Oriented x3, Cooperative, No apparent distress HEENT: Atraumatic, PERRLA, EOMI, Normocephalic Oral: Moist Mucosa, No Gingival or Mucosal Lesions/ Ulcerations Neck: Supple, No JVD, Negative Carotid Bruits, Trachea Midline, Thyroid Normal Size and Texture Lungs: Clear to auscultation, Normal air movement, No rhonchi, No wheeze, No rales Cardiovascular: Regular rate, Regular Rhythm, Normal S1, Normal S2, No murmurs, PMI Normal Abdomen: Bowel Sounds Present, Soft, Non Tender, Non-Distended, No Hepato-splenomegaly Extremities: No clubbing, No cyanosis, No edema Skin: No rashes, No breakdown Lymphatic: No Cervical, Supraclavicular, or Inguinal Adenopathy Neurological: Cranial nerves II-XII grossly intact, Motor Exam 5/5 strength throughout Psych/Mental Status: Normal Affect, Appropriate, Alert and oriented to time, place, person, mood and affect Vital Signs Temp Pulse Resp BP Pulse Ox 98.4 F 90 18 115/71 99 05/27/19 15:49 05/27/19 15:52 05/27/19 15:49 05/27/19 15:49 05/27/19 15:37 Oxygen Delivery Method Room Air Weight: 211 lb 10.3 oz Body Mass Index (BMI) 28.7 Laboratory Tests Past 24 Hrs 05/27/19 15:50 Ethyl Alcohol Pending Assessment/Plan This is a 29 years old male patient presented to the [facility] office requesting admission for acute opiate withdrawal for medical stabilization. #1 acute opiate withdrawal: Patient has been using IV heroin daily for the last 4 months, has been using anywhere between 3 to 5 g daily. He was clean for 2 months but relapsed. He admits to using occasional amphetamines. His vital signs are stable. Plan: Admit to [facility], blood alcohol level, urine drug screen, initiate [facility] protocol with tapering course of Subutex, PRN Tylenol, Catapres, Bentyl, Vistaril, Motrin, methocarbamol, Zofran, Mirapex and nightly trazodone. #2 anxiety/depression: Currently, patient is not taking any medications. He denied suicidal or homicidal thoughts or intentions. Recommend follow-up with PCP as outpatient. #3 DVT prophylaxis: Low risk patient, no prophylaxis indicated. This note was generated with [employer] dictation software. It may contain incorrect words, spelling, and punctuation that were not noted in checking the note before signing. Code Visit Inpatient E&M: 09750 Init Hosp L2
[2019-05-27 16:41] LABS: Alcohol, Blood (Medical)-Serum < 3.0 mg/dL
[2019-05-27] MEDS: traZODone 50 MG Tablet PO (21:39)
[2019-05-27 21:43] VITALS: BP 119/70; PULSE 67; RESP 16; TEMP 36.9
[2019-05-27 22:15] LABS: Amphetamine Urine VISTA NEGATIVE (<1000 ng/mL); Barbiturate Urine VISTA NEGATIVE (< 200 ng/mL); Benzodiazepine Urine VISTA NEGATIVE (< 200 ng/mL); Cocaine Urine VISTA NEGATIVE (< 300 ng/mL); Ecstacy Urine VISTA NEGATIVE (< 500 ng/mL); Methadone Urine VISTA NEGATIVE (< 300 ng/mL); PCP Urine VISTA NEGATIVE (< 25 ng/mL); THC Urine VISTA POSITIVE (< 50 ng/mL); Vista UDS pH Range 7
[2019-05-28 02:00] VITALS: BP 115/60; PULSE 62; RESP 18; TEMP 36.8
[2019-05-28 06:00] VITALS: BP 102/58; PULSE 62; RESP 18; TEMP 37.1
[2019-05-28] MEDS: Methocarbamol 750 MG Tablet PO ×2 (06:10→15:53)
[2019-05-28] MEDS: hydrOXYzine PAM 25 MG Capsule 50 MG PO ×2 (06:10→15:53)
[2019-05-28] MEDS: Dicyclomine 10 MG Capsule 20 MG PO ×2 (06:10→15:53)
[2019-05-28] MEDS: Pramipexole Di-HCl 0.25 MG Tablet PO ×2 (06:10→21:30)
[2019-05-28] MEDS: Buprenorphine HCl 2 MG TAB.SUBL SL ×3 (07:57→23:18)
[2019-05-28 08:05] LABS: Absolute Neutrophil Count 3.1 X10^3/uL (2.0-7.7); Basophil# 0.02 X10^3/uL; Basophil% 0.4 % (0-1); Eosinophil# 0.22 X10^3/uL; Hematocrit 42.4 % (40-54); Lymphocyte % 27.5 % (19-41); Mean Corpuscular Volume 87.8 fL (80-94); Mean Platelet Vol. 9.5 fl (6.2-12.0); Monocyte# 0.57 X10^3/uL; Monocyte% 10.4 % (0-10); Neutrophil # 3.14 X10^3/uL (2.7-7.7); Neutrophil % 57.5 % (47-70); Platelet Count 190 K/mm3 (150-450); RBC Distribution Width CV 12.9 % (11.6-14.6); RBC Distribution Width SD 41.6 fl (35.1-43.9); Red Blood Count 4.83 M/mm3 (4.6-6.2); White Blood Count 5.5 K/mm3 (4.4-11.0)
[2019-05-28 08:08] LABS: POSITIVE COUNT NO; POSITIVE DIFFERENTIAL NO; POSITIVE MORPHOLOGY NO
[2019-05-28 08:13] LABS: AST(SGOT) 42 U/L (15-37); Alanine Aminotransfer ALT/SGPT 59 U/L (16-61); Albumin, Serum 3.4 g/dL (3.2-5.0); Alkaline Phosphatase 66 U/L (45-117); Anion Gap 5 (5-15); BUN 7 mg/dL (7-18); BUN/Creat Ratio 9.6 RATIO (10-20); Calcium,Total 8.6 mg/dL (8.5-10.1); Chloride 109 mmol/L (98-107); Creatinine, Serum 0.73 mg/dL (0.70-1.30); EST Glomerular Filtration Rate 138 mL/min (>60); Est Glom Filt Rate - Afr Amer 166 mL/min (>60); Estimated Creatinine Clearance 166.83 ml/min; Globulin 3.5 g/dL (2.2-4.2); Glucose 106 mg/dL (74-106); Potassium 3.7 mmol/L (3.5-5.1); Protein, Total 6.9 g/dL (6.4-8.2); Sodium Level 141 mmol/L (136-145)
[2019-05-28 10:00] VITALS: BP 110/54; PULSE 72; RESP 16; TEMP 36.7
--- NOTE | 2019-05-28 10:15 | PN_ITS ---
Subjective: Patient seen and examined. He is here for opiate detox. He has no complaints and feels well. Review of systems otherwise negative. Vitals/I&O's: Vital Signs Temp Pulse Resp BP Pulse Ox 98.7 F 62 18 102/58 L 99 05/28/19 06:00 05/28/19 06:00 05/28/19 06:00 05/28/19 06:00 05/27/19 15:37 Oxygen Delivery Method Room Air Weight: 211 lb 10.3 oz Body Mass Index (BMI) 28.7 Intake and Output for Last 24 Hours 05/26/19 05/27/19 05/28/19 23:59 23:59 23:59 Intake Total 220 / 220 Output Total 0 / 0 Balance 220 / 220 General: Alert, Oriented x3, Cooperative, No apparent distress HEENT: Atraumatic, PERRLA, EOMI, Normocephalic Oral: Moist Mucosa Neck: Supple, No JVD, Negative Carotid Bruits Lungs: Clear to auscultation, Normal air movement, No rhonchi, No wheeze Cardiovascular: Regular rate, Regular Rhythm, Normal S1, Normal S2, No murmurs Abdomen: Bowel Sounds Present, Soft, Non Tender, Non-Distended, No Hepato-splenomegaly Extremities: No clubbing, No cyanosis, No edema, Capillary Refill Less than 3 Seconds Skin: No rashes, No breakdown Musculoskeletal: No Tenderness to Palpation of Joints or Extremities Lymphatic: No Cervical, Supraclavicular, or Inguinal Adenopathy Neurological: Cranial nerves II-XII grossly intact, Neuro grossly intact, Motor Exam 5/5 strength throughout Psych/Mental Status: Normal Affect, Appropriate, Alert and oriented to time, place, person, mood and affect Laboratory Results 05/27/19 15:50: Ethyl Alcohol < 3.0 05/27/19 21:27: Urine Opiates Screen NEGATIVE, Urine Methadone Screen NEGATIVE, Ur Barbiturates Screen NEGATIVE, Ur Phencyclidine Scrn NEGATIVE, Ur Amphetamines Screen NEGATIVE, U Methamphetamin-MDMA NEGATIVE, U Benzodiazepines Scrn NEGATIVE, Urine Cocaine Screen NEGATIVE, U Cannabinoids Screen POSITIVE H, Ur Drug Screen Comment 05/28/19 07:44: WBC 5.5, RBC 4.83, Hgb 14.0, Hct 42.4, MCV 87.8, MCH 29.0, MCHC 33.0, RDW 12.9, RDW Differential 41.6, Plt Count 190, MPV 9.5, Immature Gran % (Auto) 0.200, Neut % (Auto) 57.5, Lymph % (Auto) 27.5, Karnes % (Auto) 10.4 H, Eos % (Auto) 4.0, Baso % (Auto) 0.4, Absolute Neuts (auto) 3.1, Absolute Lymphs (auto) 1.50, Total Counted Not Reportable 05/28/19 07:44: Sodium 141, Potassium 3.7, Chloride 109 H, Carbon Dioxide 27.0, Anion Gap 5, BUN 7, Creatinine 0.73, Estim Creat Clear Calc 166.83, Est GFR (MDRD) Af Amer 166, Est GFR (MDRD) Non-Af 138, BUN/Creatinine Ratio 9.6 L, G lucose 106, Calcium 8.6, Total Bilirubin 0.30, AST 42 H, ALT 59, Alkaline Phosphatase 66, Total Protein 6.9, Albumin 3.4, Globulin 3.5, Albumin/Globulin Ratio 1.0 Current Medications Acetaminophen (Tylenol) 500 mg PO Q4H PRN PRN PRN Reason: Temp > 100.4 F Buprenorphine HCl (Buprenorphine Hcl) 4 mg SL Q8H RASHAD; Taper Stop: 05/30/19 19:29 Last Admin: 05/28/19 07:57 Dose: 4 mg Documented by: Clonidine (Catapres) 0.1 mg PO Q2H PRN PRN PRN Reason: Hot/Cold Sweats or Anxiety Last Admin: 05/27/19 21:35 Dose: 0.1 mg Documented by: Dicyclomine HCl (Bentyl) 20 mg PO Q6H PRN PRN PRN Reason: Abdomnial Discomfort Last Admin: 05/28/19 06:10 Dose: 20 mg Documented by: Hydroxyzine Pamoate (Vistaril Pamoate Capsule) 50 mg PO Q6H PRN PRN PRN Reason: Mild Anxiety Last Admin: 05/28/19 06:10 Dose: 50 mg Documented by: Ibuprofen (Motrin) 600 mg PO Q8H PRN PRN PRN Reason: Mild-Moderate Pain (1-5/10) Methocarbamol (Methocarbamol) 750 mg PO Q6H PRN PRN PRN Reason: Muscle Aches Last Admin: 05/28/19 06:10 Dose: 750 mg Documented by: Nicotine (Nicoderm Cq (Pbkc)) 21 mg TRANSDERM. DAILY [facility] Last Admin: 05/27/19 15:45 Dose: 21 mg Documented by: Ondansetron HCl (Zofran Odt) 4 mg PO Q6H PRN PRN PRN Reason: NAUSEA Pramipexole Dihydrochloride (Mirapex) 0.25 mg PO Q12H PRN PRN PRN Reason: Restless Legs Last Admin: 05/28/19 06:10 Dose: 0.25 mg Documented by: Trazodone HCl (Desyrel) 50 mg PO QHS [facility] Last Admin: 05/27/19 21:39 Dose: 50 mg Documented by: Medical Necessity - Tobacco Use Smoking Status: Current every day smoker Tobacco Use: Cigarettes Assessment/Plan 1. Acute opiate withdrawal * Uses about 3 to 5g of heroin daily. Also uses amphetamines occasionally. Last use was about 2 days ago. * On opiate withdrawal protocol with buprenorphine * 2. Anxiety depression: Currently not on any medications. Follow-up with PCP and for referral to psychiatrist as needed on outpatient basis. 3. Nicotine dependence: Counseled to quit. Nicotine patch 21 mg daily. DVT prophylaxis: Low risk. Encourage ambulation. Code Visit Inpatient E&M: 17248 Subs Hosp L2
[2019-05-28 15:58] VITALS: BP 133/58; PULSE 71; RESP 16; TEMP 37
[2019-05-28 21:24] VITALS: BP 114/77; PULSE 77; RESP 18; TEMP 36.9
[2019-05-28] MEDS: traZODone 50 MG Tablet PO (21:27)
[2019-05-29 06:33] VITALS: BP 110/70; PULSE 63; RESP 18; TEMP 36.4
[2019-05-29] MEDS: Buprenorphine HCl 2 MG TAB.SUBL SL ×2 (06:39→18:53)
--- NOTE | 2019-05-29 09:18 | PN_ITS ---
Subjective: Patient seen and examined. He feels well and has no complaints. Review of systems otherwise negative. Vitals/I&O's: Vital Signs Temp Pulse Resp BP Pulse Ox 97.5 F L 63 18 110/70 99 05/29/19 06:33 05/29/19 06:33 05/29/19 06:33 05/29/19 06:33 05/27/19 15:37 Oxygen Delivery Method Room Air Weight: 211 lb 10.3 oz Body Mass Index (BMI) 28.7 Intake and Output for Last 24 Hours 05/27/19 05/28/19 05/29/19 23:59 23:59 23:59 Intake Total 220 / 340 320 / 320 Output Total 0 / 0 Balance 220 / 340 320 / 320 General: Alert, Oriented x3, Cooperative, No apparent distress HEENT: Atraumatic, PERRLA, EOMI, Normocephalic Oral: Moist Mucosa Neck: Supple, No JVD, Negative Carotid Bruits Lungs: Clear to auscultation, Normal air movement, No rhonchi, No wheeze Cardiovascular: Regular rate, Regular Rhythm, Normal S1, Normal S2, No murmurs Abdomen: Bowel Sounds Present, Soft, Non Tender, Non-Distended, No Hepato- splenomegaly Extremities: No clubbing, No cyanosis, No edema, Capillary Refill Less than 3 Seconds Skin: No rashes, No breakdown Musculoskeletal: No Tenderness to Palpation of Joints or Extremities Lymphatic: No Cervical, Supraclavicular, or Inguinal Adenopathy Neurological: Cranial nerves II-XII grossly intact, Neuro grossly intact, Motor Exam 5/5 strength throughout Psych/Mental Status: Normal Affect, Appropriate, Alert and oriented to time, place, person, mood and affect Current Medications Acetaminophen (Tylenol) 500 mg PO Q4H PRN PRN PRN Reason: Temp > 100.4 F Buprenorphine HCl (Buprenorphine Hcl) 2 mg SL Q12H RASHAD; Taper Stop: 05/30/19 19:29 Last Admin: 05/29/19 06:39 Dose: 2 mg Documented by: Clonidine (Catapres) 0.1 mg PO Q2H PRN PRN PRN Reason: Hot/Cold Sweats or Anxiety Last Admin: 05/27/19 21:35 Dose: 0.1 mg Documented by: Dicyclomine HCl (Bentyl) 20 mg PO Q6H PRN PRN PRN Reason: Abdomnial Discomfort Last Admin: 05/28/19 15:53 Dose: 20 mg Documented by: Hydroxyzine Pamoate (Vistaril Pamoate Capsule) 50 mg PO Q6H PRN PRN PRN Reason: Mild Anxiety Last Admin: 05/28/19 15:53 Dose: 50 mg Documented by: Ibuprofen (Motrin) 600 mg PO Q8H PRN PRN PRN Reason: Mild-Moderate Pain (1-5/10) Methocarbamol (Methocarbamol) 750 mg PO Q6H PRN PRN PRN Reason: Muscle Aches Last Admin: 05/28/19 15:53 Dose: 750 mg Documented by: Nicotine (Nicoderm Cq (Pbkc)) 21 mg TRANSDERM. DAILY [facility] Last Admin: 05/28/19 15:54 Dose: 21 mg Documented by: Nutritional Formula (Lactose Free) (Ensure Enlive) 120 ml PO 4X/DAY [facility] Last Admin: 05/28/19 21:28 Dose: Not Given Documented by: Ondansetron HCl (Zofran Odt) 4 mg PO Q6H PRN PRN PRN Reason: NAUSEA Pramipexole Dihydrochloride (Mirapex) 0.25 mg PO Q12H PRN PRN PRN Reason: Restless Legs Last Admin: 05/28/19 21:30 Dose: 0.25 mg Documented by: Trazodone HCl (Desyrel) 50 mg PO QHS [facility] Last Admin: 05/28/19 21:27 Dose: 50 mg Documented by: Medical Necessity - Tobacco Use Smoking Status: Current every day smoker Tobacco Use: Cigarettes Assessment/Plan 1. Acute opiate withdrawal * On opiate withdrawal protocol with buprenorphine * monitor CINA score * 2. Anxiety depression: Currently not on any medications. Follow-up with PCP and for referral to psychiatrist as needed on outpatient basis. 3. Nicotine dependence: Counseled to quit. Nicotine patch 21 mg daily. DVT prophylaxis: Low risk. Encourage ambulation. Code Visit Inpatient E&M: 38102 Subs Hosp L2
--- NOTE | 2019-05-29 09:46 | NURSING ---
Pt sitting in chair in back hallway with another female [place] patient from [facility].
[2019-05-29 10:00] VITALS: BP 99/54; PULSE 67; RESP 16; TEMP 36.8
--- NOTE | 2019-05-29 10:34 | NEWVISION ---
Patient has D/C plan at [facility] on 06/01/19 for inpatient care.
[2019-05-29] MEDS: Methocarbamol 750 MG Tablet PO (10:56)
[2019-05-29] MEDS: hydrOXYzine PAM 25 MG Capsule 50 MG PO (10:56)
--- NOTE | 2019-05-29 19:15 | NURSING ---
This RN was notified that patient was seen entering bathroom with female pt from [facility] by DELIO Lozoya. This RN did not observe this and by the time this RN was by pt's room he was sitting in back hallway with pt from 214. This RN was walking with another patient at this time and did return after notification of occurrence and reminded pt that he is not to be in another pt's room and that he cannot have other patient's in his room. Pt verbalized understanding. 15 minutes later this RN was rounding at 0705 and providing bedside report with DELIO Mobley and pt was just getting in shower. This RN introduced pt to Leandra, he verbalized understanding and then entered bathroom and closed door. This RN rounded on a different pt and when exiting room was notified that 214 was missing. This RN entered 218 to check on him and he was not in room. All of pt's belongings were taken from room. Both pt's were d/c'ed AMA, as they left unit. automotive parts coordinator notified supervisor blood, doctor, security, etc.
--- NOTE | 2019-05-29 19:22 | NURSING ---
UNABLE TO LOCATE PATIENT. ATTEMPTED TO CALL PT. PHYSICIAN INFORMED. SECURITY AND STATISTICAL MACHINE SERVICER INFORMED LEFT AMA
--- NOTE | 2019-05-30 13:04 | PCM.DC.SUM ---
Discharge Date and Diagnosis Date of Admission: 05/27/19 Date of Discharge: 05/30/19 - Primary Discharge Diagnosis acute opiate withdrawal - Secondary Discharge Diagnosis Chronic Problems (Last Reviewed 12/17/18 @ 14:47 by Jigna Gleason) Tobacco abuse (Chronic) Insomnia (Chronic) Depression (Chronic) Anxiety (Chronic) Hospital Course and Treatment Operations: None Procedures: None Summary of Care Provided: The patient is a 29 year old M with a history of nicotine dependence, insomnia, depression and anxiety. He was admitted on 05/27/19 for acute opiate withdrawal. He was admitted via the [facility] prrogram after he presented there for acute opiate withdrawal. He used IV heroind 3-5gram dialy for about 4 months prior to admission, and had had a period of abstinence for ~ 2 months prior to that. He also used amphetamines occasionally. On admission, he complained of generalized body aches and restlessness and anxiety as well as nausea. He was admitted and managed for acute opiate withdrawal and started on buprenorphine withdrawal protocol. He tolerated the protocol well and remained stable. On day 2- 05/29/19, patient signed out AMA f during the evening from the hospital. Patient seen and examined prior to discharge. He had no complaints and felt well. Review of systems was otherwise negative. Labs and vitals reviewed. o/e: [] Vital Signs Height 6 ft Weight: 211 lb 10.3 oz Weight in Pounds 211.6 lbs Pulse Ox 99 Temperature 98.2 F Pulse Rate 67 Respiratory Rate 16 Blood Pressure 99/54 Blood Pressure Position Supine General: Alert, Oriented x3, Cooperative, No apparent distress HEENT: Atraumatic, PERRLA, EOMI, Normocephalic Oral: Moist Mucosa Neck: Supple, No JVD, Negative Carotid Bruits Lungs: Clear to auscultation, Normal air movement, No rhonchi, No wheeze Cardiovascular: Regular rate, Regular Rhythm, Normal S1, Normal S2, No murmurs Abdomen: Bowel Sounds Present, Soft, Non Tender, Non-Distended, No Hepato-splenomegaly Extremities: No clubbing, No cyanosis, No edema, Capillary Refill Less than 3 Seconds Skin: No rashes, No breakdown Musculoskeletal: No Tenderness to Palpation of Joints or Extremities Lymphatic: No Cervical, Supraclavicular, or Inguinal Adenopathy Neurological: Cranial nerves II-XII grossly intact, Neuro grossly intact, Motor Exam 5/5 strength throughout Psych/Mental Status: Normal Affect, Appropriate, Alert and oriented to time, place, person, mood and affect Patient signed out AMA - Physical Exam Vital Signs Temp Pulse Resp BP Pulse Ox 98.2 F 67 16 99/54 L 99 05/29/19 10:00 05/29/19 10:00 05/29/19 10:00 05/29/19 10:00 05/27/19 15:37 Oxygen Delivery Method Room Air Weight: 211 lb 10.3 oz Body Mass Index (BMI) 28.7 Intake and Output for Last 24 Hours 05/28/19 05/29/19 05/30/19 23:59 23:59 23:59 Intake Total 220 / 340 192 / 1920 Output Total 0 / 0 Balance 220 / 340 1920 / 192 Discharge Diet: No Restrictions Primary Care Physician: Sandrine Chavez MD [Primary Care Provider] - Disposition: Against Medical Advice Minutes spent on discharge:: 35 Patient Condition:: Stable Medical Necessity - Tobacco Use Smoking Status: Current every day smoker Tobacco Use: Cigarettes Meaningful Use Info Meaningful Use Diagnoses (Choose all that apply): None applicable Code Visit Inpatient E&M: 62298 Disch Hosp
== END 2019-05-29 19:15 | disposition left against medical advice (07) | DRG 770 ==
PROVIDERS: Admitting Provider Hospitalist; Family Provider Internal Medicine; PCP Internal Medicine; Referring Provider Hospitalist; Visit Provider Student in an Organized Health Care Education/Training Program
DX: F11.23 Opioid dependence with withdrawal (principal); F17.210 Nicotine dependence, cigarettes, uncomplicated; G47.00 Insomnia, unspecified; F32.9 Major depressive disorder, single episode, unspecified; F41.9 Anxiety disorder, unspecified
CPT/HCPCS: 36415; 80053; 80307; 80320; 85025; 99218; 99406; G0378; G0379; G0480

== ENCOUNTER 2019-07-13 18:43 | Emergency (ER) | payer MEDICAID, SELFPAY ==
[2019-05-27 15:17] VITALS: BMI 28.7
[2019-07-13 18:44] VITALS: BP 78/46; PULSE 78; RESP 16; TEMP 36.8; O2SAT 98; BMI 28.4
--- NOTE | 2019-07-13 18:53 | NURSING ---
pt brought back to to be seen. pt then immediately walks out of the room asking if he can step outside for just a minute. pt states i need to smoke before the dr comes in. pt informed that this is a non smoking facility and that he needs to stay in the room so that he can be seen by the dr. pt insistent upon going outside. walked out of dept with female friend.
--- NOTE | 2019-07-13 19:01 | ED.RN ---
pt was questioned about IV drug use. admitted to using heroin today. multiple tract sites on upper extremities. pt was informed about detox program and informed of increased risk of infection with that behavior. alok dodson rn [id number]
--- NOTE | 2019-07-13 19:31 | EKG12_ITS ---
Test Reason : DYSRHYTHMIA Blood Pressure : / mmHG Vent. Rate : 076 BPM Atrial Rate : 076 BPM P-R Int : 148 ms QRS Dur : 106 ms QT Int : 410 ms P-R-T Axes : 046 060 047 degrees QTc Int : 461 ms Normal sinus rhythm Normal ECG Confirmed by DENISE CAMPBELL, MARISSA ([id number]), film or videotape editor MINGO VELA ([id number]) on 07/15/2019 11:58:45 AM Referred By: TISH Confirmed By:MARISSA WALKER MD
--- NOTE | 2019-07-13 19:37 | RAD_ITS ---
STUDY: X-RAY CHEST REASON FOR EXAM: Male, 29 years old. Congestion TECHNIQUE: Frontal view COMPARISON: None. FINDINGS: The lungs are clear and expanded. There is no demonstrated pleural abnormality. Normal size heart. Normal mediastinum and robert. Normal visualized pulmonary arteries. Normal visualized aortic arch and descending thoracic aorta. Normal visualized thoracic spine. Normal visualized ribs, clavicles, and shoulders. There is no demonstrated abnormality of the visualized soft tissue structures of the upper abdomen. RAD/Chest 1 View (Portable) IMPRESSION: Normal x-ray examination of the chest. Electronically Signed: Giovanni Carrera DO at 19:51 EDT Tel [phone], Service support ,
[2019-07-13] MEDS: 0.9% Normal Saline 1,000 ML 999 ML IV ×2 (19:59→21:35)
[2019-07-13 20:00] VITALS: BP 95/49
[2019-07-13 20:15] LABS: Absolute Lymphocyte Count 1.08 X10^3/uL (0.83-4.51); Absolute Neutrophil Count 6.1 X10^3/uL (2.0-7.7); Basophil# 0.03 X10^3/uL; Basophil% 0.4 % (0-1); Eosinophil# 0.02 X10^3/uL; Eosinophils% 0.3 % (0-5); Hematocrit 37.5 % (40-54); Hemoglobin 12.6 g/dL (13.0-16.5); Lymphocyte # 1.08 X10^3/ul (4.0); Lymphocyte % 13.7 % (19-41); Mean Corp Hgb Conc 33.6 g/dL (32-36); Mean Corpuscular Hgb 29.6 pg (27.0-32.0); Mean Platelet Vol. 9.2 fl (6.2-12.0); Monocyte# 0.61 X10^3/uL; Monocyte% 7.7 % (0-10); NRBC Flagged by Analyzer 0 % (0-5); Neutrophil # 6.14 X10^3/uL (2.7-7.7); Neutrophil % 77.5 % (47-70); Platelet Count 210 K/mm3 (150-450); RBC Distribution Width CV 13.3 % (11.6-14.6); RBC Distribution Width SD 42.9 fl (35.1-43.9); Red Blood Count 4.26 M/mm3 (4.6-6.2); White Blood Count 7.9 K/mm3 (4.4-11.0)
--- NOTE | 2019-07-13 20:23 | ED.DCSUM_ITS ---
History of Present Illness Informant: Patient Onset: Weeks - 2 Timing: Continuous Current Severity: Severe Maximum Severity: Severe Narrative: Patient is a 29-year-old male with history of MRSA and IV heroin abuse presen ting from home with 2 weeks of worsening wounds on his extremities. Patient also notes over the past week or so he is at increased dyspnea on exertion, lightheadedness and generalized fatigue. He denies any fever or chills. Patient states he normally injects into his hands and he normally uses clean needles. He was last tested for HIV and hepatitis in November and everything was negative. Patient has multiple wounds on his extremities that have intermittently drained puslike material. He states he has one over his left brock that is becoming more painful and red. It is currently scabbed over but did drain earlier. Patient denies any other complaints at this time. <Alejandrina Morales - Last Filed: 07/13/19 22:02> <Layton Christensen - Last Filed: 07/13/19 22:19> Chief Complaint: Wound Check Past Medical History Past Medical History: - - MRSA Surgical History: - - Adenoidectomy. Smoking Status: Current every day smoker Drugs: Heroin, - - Methamphetamines <Alejandrina Morales - Last Filed: 07/13/19 22:02> <Layton Christensen - Last Filed: 07/13/19 22:19> - Allergies and Home Meds Allergies/Adverse Reactions: Allergies No Known Allergies Allergy (Verified 05/27/19 15:26) Primary Care Physician: Nixon Nixon DO [STAFF PHYSICIAN] - Sandrine Chavez MD [Primary Care Provider] - Review of Systems All systems negative except as indicated General: Reports: Malaise, - - Lightheadedness Respiratory: Reports: Dyspnea, Dyspnea on exertion Musculoskeletal: Reports: Extremity Pain - Left brock Skin: Reports: Abscess, Wounds - Scattered on extremities <Alejandrina Morales - Last Filed: 07/13/19 22:02> Physical Exam Vital Signs/Narrative: Vital Signs Temp Pulse Resp BP Pulse Ox 07/13/19 20:00 95/49 L 07/13/19 18:44 98.2 F 78 16 78/46 L 98 Inital Vital Signs reviewed: Yes General: Unkempt, No Acute Distress Head: Normocephalic, Atraumatic Eyes: Perrl, EOMI ENT: Moist mucous membranes Cardiovascular: Regular rate, Regular rhythm, No murmurs Respiratory: No distress, CTA bilaterally, Chest nontender. Negative for: Rales, Rhonchi Abdomen: Soft, Nontender, Nondistended, Normal bowel sounds Back: Nontender, Normal Inspection Extremities: Tenderness - Superficial, anterior left calf Skin: Rash, - - Scattered erythematous lesions on extremities consistent with abscesses of various stages of healing/cellulitis; left brock there is a 6 cm x 4 cm area of erythema and warmth that is very tender to palpation with a central scab and associated induration; patient has track gomes in various stages of healing on his bilateral hands Neurological: Alert, Oriented x3, Cranial nerves II-XII grossly intact, Normal Strength, Normal Sensation Psychological: Normal affect <Alejandrina Morales - Last Filed: 07/13/19 22:02> Vital Signs/Narrative: Vital Signs Temp Pulse Resp BP Pulse Ox 07/13/19 22:00 98.4 F 70 17 100/49 L 100 07/13/19 21:30 98/44 L 07/13/19 21:25 98.2 F 71 20 H 89/42 L 99 07/13/19 20:00 95/49 L 07/13/19 18:44 98.2 F 78 16 78/46 L 98 <Layton Christensen - Last Filed: 07/13/19 22:19> Diagnostic/Tx/Re-eval - Rhythm Strip Rhythm Strip: Sinus Rhythm Rate: 76 Ectopy: None - EKG Initial EKG Interpretation: - - Normal sinus rhythm CO interval 148 QRS 106 QT/QTc 410/[address] segments - Medical Decision Making Patient is evaluated for skin wounds. He also states he has been feeling lightheaded. Brock is hypotensive in triage. He went back to see the patient immediately however patient has stepped outside to smoke a cigarette. As soon as patient return to ED room he is evaluated. The patient's blood pressure is low he is mentating well. He is given IV fluids. A septic work-up is ordered. Patient has a normal lactate as well as blood cell count. He does not meet marker for Sirs. Patient is dehydrated and has acute kidney injury. He is given 2 L of fluid in the emergency room. He is given a dose of IV vancomycin for cellulitis. Incision and drainage is performed for abscess on his left brock. See procedure note. I question of patient's hypotension is more from dehydration and not infection. Patient states he has not been drinking water and is only been drinking energy drinks. Patient will be given parasternal hydration and antibiotics in the emergency room and discharged home with a course of Bactrim for presumed MRSA associated with his abscess on his legs. He is encouraged to drink plenty of fluids. He is instructed to follow-up with her primary care provider. At this time I do not think patient requires admission to the hospital as he does not have a leukocytosis, lactic acidosis or nausea, vomiting or fever. I believe patient's CAROLYN should resolve nicely with IV fluids. He was given a good Rx prescription drug savings card so he can better afford his antibiotics. Patient is counseled on signs and symptoms requiring return to the emergency room. Patient verbalizes agreement and understand this plan. Patient discharged home in stable and improved condition. <Alejandrina Morales - Last Filed: 07/13/19 22:02> - Medical Decision Making Seen and evaluated independently and in conjunction with resident physician. Agree with notes above unless documented otherwise. Patient is well-appearing, with a left leg abscess that we successfully drained. He does not meet sepsis criteria. His creatinine is up a little, therefore he was given extra IV fluids in addition to a dose of IV vancomycin to cover against his history of MRSA, which we suspect this abscess on his left lower leg to be infected with. We did draw blood cultures, however he is not septic and we think bacteremia is less likely. However we did cover him with IV antibiotics. I feel he can safely be discharged home. Of note he wants to be admitted because he will not have to pay for antibiotics, this coming from the patient. Unfortunately I do not think he meets any inpatient criteria at this time. He will be discharged on Bactrim, his girlfriend states they will find a way to get it, and he is welcome to return if he gets worse. None of the other skin lesions he has appear to be infected, only the one on his left lower leg. <Layton Christensen - Last Filed: 07/13/19 22:19> Procedures Procedure(s): Incision and drainage. Risk and benefits discussed with the patient. Area anesthetized with 2 cc of 1% lidocaine with epinephrine. #11 blade used to make a 1 cm linear incision. A good amount of purulent material was expressed. Hemostats were used to open up any potential loculations. Wound is then irrigated. Patient tolerated procedure relatively well. No immediate complications. Bacitracin ointment applied and a bandage placed. <Alejandrina Morales - Last Filed: 07/13/19 22:02> ED Disposition <Alejandrina Morales - Last Filed: 07/13/19 22:02> <Layton Christensen - Last Filed: 07/13/19 22:19> - Plan for ED Patient: Disposition: Home or Assisted Living Diagnosis: Cellulitis and abscess of left lower extremity, Dehydration, IV drug abuse Instructions: ABSCESS, Incision and Drainage, DEHYDRATION (6y-Adult) Prescriptions: Sulfamethoxazole/Trimethoprim [Bactrim Ds Tablet] 1 ea PO BID #20 tab Prescription Printed Referrals: Sandrine Chavez MD [Primary Care Provider] - Nixon Nixon DO [STAFF PHYSICIAN] - Additional Instructions: Try to abstain from any IV drug use. Drink more water and limit your consumption of energy drinks. It is very important that you take your antibiotics. Return to the emergency room or call 911 if you develop worsening symptoms.
[2019-07-13] MEDS: Ketorolac 15 MG/ML Vial IV (20:24)
[2019-07-13 20:35] LABS: Anion Gap 6 (5-15); BUN 16 mg/dL (7-18); BUN/Creat Ratio 10.9 RATIO (10-20); Calcium,Total 8.3 mg/dL (8.5-10.1); Chloride 103 mmol/L (98-107); Creatinine, Serum 1.47 mg/dL (0.70-1.30); EST Glomerular Filtration Rate 61 mL/min (>60); Est Glom Filt Rate - Afr Amer 74 mL/min (>60); Estimated Creatinine Clearance 80.39 ml/min; Glucose 148 mg/dL (74-106); Potassium 3.6 mmol/L (3.5-5.1); Sodium Level 137 mmol/L (136-145)
[2019-07-13 20:41] LABS: Lactic Acid 1.9 mmol/L (0.4-2.0)
--- NOTE | 2019-07-13 21:23 | ED.RN ---
THIS NURSE WAS ONLY ABLE TO GET ONE BLUE AEROBIC BLOOD CULTURE. DR. WINSTON WAS MADE AWARE.
[2019-07-13 21:24] LABS: Bacteria 0 SEEN /hpf (None Seen); Red Blood Cells-Urine 0 SEEN /hpf (0-5)
[2019-07-13 21:25] VITALS: BP 89/42; PULSE 71; RESP 20; TEMP 36.8; O2SAT 99
[2019-07-13 21:30] VITALS: BP 98/44
[2019-07-13 21:31] LABS: Color, Urine Yellow (Yellow); Glucose, Dipstick Normal (Normal); Ketone-Dipstick 50 mg/dl (Negative); Leukocyte Esterase-Dipstick 25 /ul (Negative); Nitrite-Dipstick Negative (Negative); Occult Blood-Urine 25 /ul (Negative); Protein-Dipstick 100 mg/dl (Negative); Urine Clarity Clear (Clear); Urine Urobilinogen 1 mg/dl (Normal)
[2019-07-13 21:37] LABS: Urine Bilirubin Dipstick 1 mg/dL (Negative)
[2019-07-13 21:38] LABS: Mucous, Urine 2+ /hpf (<or=2+); Squamous Epithelial Cells - UA 0-5 SEEN /hpf (0-5); White Blood Cells 0-5 SEEN /hpf (0-5)
[2019-07-13 21:40] LABS: Hyaline Cast 10-25 SEEN /lpf (0-5)
[2019-07-13 22:00] VITALS: BP 100/49; PULSE 70; RESP 17; TEMP 36.9; O2SAT 100
[2019-07-13 23:27] VITALS: BP 115/70; PULSE 78; RESP 35; O2SAT 99
--- NOTE | 2019-07-14 00:05 | ED.RN ---
PATIENT WAS C/O LIGHTHEADEDNESS AND UNABLE TO TAKE A DEEP BREATH I LET DR. RUTHERFORD KNOW HE SAID THAT HE IS NOT TACHY AND HIS PULSE OX IS NORMAL. HE ALSO SAID HE HAD THESE SAME C/O ON ADMISSION. DR. RUTHERFORD SAID THAT HE IS NOT CONCERNED ABOUT A P.E. AND PATIENT CAN BE DISCHARGED.
[2019-07-14 00:17] VITALS: BP 113/78; PULSE 81; RESP 32; O2SAT 99
--- NOTE | 2019-07-14 11:05 | ED.RN ---
attempted to call pt back per dr mcmillan. unable to leave message
== END 2019-07-14 00:17 | disposition home or self-care (01) ==
PROVIDERS: Emergency Provider Emergency Medicine; Family Provider Internal Medicine; PCP Internal Medicine
DX: L02.416 Cutaneous abscess of left lower limb (principal); L03.116 Cellulitis of left lower limb; E86.0 Dehydration; F11.10 Opioid abuse, uncomplicated; F15.10 Other stimulant abuse, uncomplicated; F17.210 Nicotine dependence, cigarettes, uncomplicated; Z86.14 Personal history of Methicillin resistant Staphylococcus aureus infection
CPT/HCPCS: 10060; 71045; 80048; 81001; 83605; 84484; 85025; 87040; 93005; 96365; 96366; 96375; 99285; J7030; J7040; A4216

== ENCOUNTER 2020-02-12 15:52 | Emergency (ER) | payer SELFPAY ==
[2020-02-12 15:54] VITALS: BP 138/72; PULSE 103; RESP 16; TEMP 36.6; O2SAT 93; BMI 30.7
--- NOTE | 2020-02-12 16:15 | ED.VIS.GEN ---
History of Present Illness Chief Complaint: Substance Abuse Narrative: This patient is a 29-year-old male who presents after an opiate overdose. He has a history of opiate abuse and went through detox last year. He has been clean for 6 months. He used fentanyl today. He reports that this was his first use in 6 months. He was unresponsive and was given Narcan. He now has no complaints. He denies any withdrawal symptoms. He states he was brought in by the [facility] for inpatient detox. Past Medical History - Allergies and Home Meds Allergies/Adverse Reactions: Allergies No Known Allergies Allergy (Verified 02/12/20 15:53) Primary Care Physician: Sandrine Chavez MD [Primary Care Provider] - Past Medical History: None Surgical History: - - Adenoidectomy. Smoking Status: Current every day smoker Review of Systems All systems negative except as indicated General: Denies: Fever Eyes: Denies: Visual changes - bilaterally ENT: Denies: Bilateral ear pain Cardiovascular: Denies: Chest pain Respiratory: Denies: Dyspnea, Cough Gastrointestinal: Denies: Abdominal pain, Nausea, Vomiting, Diarrhea Musculoskeletal: Denies: Myalgias, Arthralgias Skin: Denies: Rash Neurological: Denies: Headache Physical Exam Vital Signs/Narrative: Vital Signs Temp Pulse Resp BP Pulse Ox 02/12/20 15:54 97.9 F 103 H 16 138/72 H 93 Inital Vital Signs reviewed: Yes General: Well nourished Head: Normocephalic Eyes: EOMI ENT: Moist mucous membranes Neck: Supple Cardiovascular: Regular rate, Regular rhythm Respiratory: No distress, CTA bilaterally Abdomen: Soft, Nontender Skin: Normal color Neurological: Alert Psychological: Normal affect Diagnostic/Tx/Re-eval - Medical Decision Making At this time patient has no withdrawal symptoms. He reports that he has been clean for 6 months and just relapsed with first use today. Therefore he is not at risk of developing withdrawal symptoms. At this point I do not believe he meets criteria for inpatient detox. Additionally I expressed to him the concerns about basically a voluntary admission in the setting of the coronavirus pandemic. I advised that he follow-up as an outpatient. He states that he wanted admitted because he does not have an ID and has nowhere to go as he cannot go back to his fianc?e and daughter where he was living because he used today. I explained that this in and of itself is not a criteria for hospitalization. I did speak to social work regarding the patient's concerns. We can refer for the outpatient substance abuse program. ED Disposition - Plan for ED Patient: Disposition: Home or Assisted Living Diagnosis: Substance abuse Instructions: ED Abuse Narcotic Referrals: Sandrine Chavez MD [Primary Care Provider] - [facility] [STAFF PHYSICIAN] -
--- NOTE | 2020-02-12 16:35 | CM.ED ---
SOCIAL WORK INFORMANT: DR. SANTOYO REASON FOR REFERRAL: SUBSTANCE ABUSE COLLABORATION WITH DR. SANTOYO REGARDING PATIENT'S STATUS AND NEEDS. RECOMMENDING REFERRAL FOR OUTPATIENT SERVICES. MET WITH PATIENT IN ROOM. INTRODUCED ROLE AND REASON FOR REFERRAL. PATIENT REPORTS IS NOW HOMELESS AND STATES REQUIRES ID TO GET INTO [facility]. REGISTRATION WAS ABLE TO PRINT OFF COPY OF PHOTO ID THAT WAS ON FILE. CALL TO [facility]. PER WORKER, PATIENT IS ALREADY SCHEDULED FOR INTAKE APPOINTMENT FOR 02/15/20 AT 12P. CALL TO THE [facility], WORKER REPORTS BEDS AVAILABLE, PATIENT MUST ARRIVE BEFORE 7P. PATIENT AND STAFF UPDATED ON THE ABOVE. PLAN: [facility] WITH INTAKE APPOINTMENT AT [facility] ON SATURDAY. Antelmo LOZANO MSW, [employer]ACHINE TENDER.
[2020-02-12 16:39] VITALS: RESP 18
== END 2020-02-12 16:41 | disposition home or self-care (01) ==
LOC: ED 16:23
PROVIDERS: Emergency Provider Emergency Medicine; PCP Internal Medicine
DX: F11.10 Opioid abuse, uncomplicated (principal); F17.200 Nicotine dependence, unspecified, uncomplicated
CPT/HCPCS: 99284

== ENCOUNTER 2020-03-09 23:15 | Emergency (ER) | payer MEDICAID, SELFPAY ==
[2020-03-09 23:15] VITALS: BP 138/82; PULSE 92; RESP 18; TEMP 36.1; O2SAT 96; BMI 29.7
--- NOTE | 2020-03-09 23:32 | ED.DCSUM_ITS ---
- ER Visit Summary Date of Service: 03/09/20 Chief Complaint: [Laceration right small finger] History of Present Illness: The patient is a 29 M [presents to the emergency department with a laceration to his right small finger that occurred about half an hour ago. 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 Patient is up-to-date on tetanus. He is right-hand dominant. Patient does not want narcotics and states he is currently in treatment for opiate addiction.] Physical Examination: [Small finger-patient has a 1.5 cm laceration to the volar aspect of the DIP joint. Patient has normal range of motion in flexion extension against resistance. He is neurovascular intact.] Test Results: [] Emergency Department Course and Treatment: [Laceration repair-digital block performed using 1% lidocaine total of 60 cc. Wound cleansed with Shur-Clens and irrigated with copious saline. Wound was inspected and the laceration does not involve the flexor tendon. Patient had the wound cleansed with Shur-Clens irrigated with copious saline. Patient had the wound closed using 5-0 nylon total of 3 single ruptured sutures. Patient tired procedure well. Clean dressing applied.] Treatment Plan: [Follow-up with primary care physician in 10 days for suture removal.] Disposition: [Discharged home in stable condition. Patient advised to return if increasing pain, redness, swelling, purulent drainage, or condition should worsen anyway.] Impression: [Laceration right small finger 1.5 cm-simple repair] This note was generated with [employer] dictation software. It may contain incorrect words, spelling, and punctuation that were not noted in review of the chart prior to signing ED Disposition - Plan for ED Patient: Referrals: Sandrine Chavez MD [Primary Care Provider] -
--- NOTE | 2020-03-09 23:50 | ED.DEP ---
ED Disposition - Plan for ED Patient: Instructions: ED Laceration Hand Referrals: Sandrine Chavez MD [Primary Care Provider] - 10 Day for suture removal
== END 2020-03-10 00:08 | disposition home or self-care (01) ==
LOC: ED 23:55
PROVIDERS: Emergency Provider Emergency Medicine; PCP Internal Medicine
DX: S61.216A Laceration without foreign body of right little finger without damage to nail, initial encounter (principal); W26.8XXA Contact with other sharp object(s), not elsewhere classified, initial encounter; Y93.G1 Activity, food preparation and clean up; Y92.9 Unspecified place or not applicable; Z72.0 Tobacco use
CPT/HCPCS: 12001; 99283

== ENCOUNTER 2020-10-04 10:29 | Emergency (ER) | payer MEDICAID, SELFPAY ==
[2020-10-03 09:30] VITALS: BMI 33.6
[2020-10-04 10:30] VITALS: BP 147/78; PULSE 80; RESP 18; TEMP 36.6; O2SAT 98; BMI 31.8
--- NOTE | 2020-10-04 10:53 | ED.VIS.GEN ---
History of Present Illness Chief Complaint: Male Pain/Injury Informant: Patient Onset: Days Context: Sudden Onset Timing: Continuous Quality: Painful lump left groin Location: Left groin Current Severity: Mild Maximum Severity: Moderate Worsened by: Touch Relieved by: Nothing Associated Symptoms: Rash dorsal surface penis Narrative: Patient is 30-year-old male who presents with a painful lump left inguinal area. He has a rash dorsal surface of the penis. He denies history of diabetes. He denies polyuria polydipsia. There is a family history of diabetes. He denies fever, chills night sweats. He denies history of STI. He denies dysuria, frequency, urgency or hematuria. He denies swelling of his scrotum or testicles. No testicular pain. There is no history of trauma. Prior similar symptoms: No Recent Illness/Hospitalization: No - Past Medical History (1) Anxiety Status: Chronic (2) Depression Status: Chronic (3) Insomnia Status: Chronic (4) Tobacco abuse Status: Chronic Past Medical History - Allergies and Home Meds Allergies/Adverse Reactions: Allergies No Known Allergies Allergy (Verified 10/04/20 10:32) Primary Care Physician: Sandrine Chavez MD [Primary Care Provider] - Prior records reviewed: Yes Surgical History: - - Adenoidectomy. Lives: Alone Smoking Status: Current every day smoker Alcohol: Rare Drugs: None - Family History Maternal Family History: Family History (Last Reviewed 03/18/20 @ 10:02 by Sonya Kumar) Father Myocardial infarction, Onset Age: 40 Grandfather Diabetes Family History: Reports: No pertinent history Paternal Family History: Family History (Last Reviewed 03/18/20 @ 10:02 by Sonya Kumar) Father Myocardial infarction, Onset Age: 40 Grandfather Diabetes Family History: Reports: No pertinent history Review of Systems General: Denies: Chills, Fever, Malaise, Subjective, Sweats Gastrointestinal: Denies: Abdominal pain, Nausea, Vomiting Genitourinary: Denies: Dysuria, Hematuria, Frequency Musculoskeletal: Denies: Myalgias, Arthralgias, Neck pain, Swelling, Extremity Pain Skin: Reports: Rash. Denies: Wounds Endocrine: Denies: Polyuria, Polydipsia Hematologic: Denies: Easy bruising, Easy bleeding Physical Exam Vital Signs/Narrative: Vital Signs Temp Pulse Resp BP Pulse Ox 10/04/20 10:30 97.9 F 80 18 147/78 H 98 Inital Vital Signs reviewed: Yes General: Well nourished, Well developed Head: Normocephalic, Atraumatic Eyes: Perrl, EOMI ENT: Moist mucous membranes Cardiovascular: Regular rate, Regular rhythm Respiratory: No distress Abdomen: Soft, Nontender, Nondistended, Normal bowel sounds Rectal: Deferred : - - As evidence of yeast infection dorsal surface of the penis near the root. There is inguinal lymphadenopathy noted on the left. There is no evidence of hernia. Testicles are nonswollen. Scrotum is not swollen. There is no evidence of cellulitis. Extremities: Nontender, No edema Skin: Normal color, Rash Neurological: Alert, Oriented x3, Cranial nerves II-XII grossly intact, Normal Strength, Normal Sensation Psychological: Normal affect Diagnostic/Tx/Re-eval Laboratory Results 10/04/20 11:49 POC Glucose 112 H - Medical Decision Making With yeast infection involving the shaft of the penis and lymphadenopathy suspect patient has mild cellulitis in addition. Since there is family history of diabetes will obtain a PGT. Patient has a yeast and faction involving the shaft of his penis with secondary infection and lymphadenopathy. Will treat with antifungal cream, Bactrim and cephalexin since she has no allergies. ED Disposition - Plan for ED Patient: Disposition: Home or Assisted Living Diagnosis: Dianne infection, Cellulitis, penis Instructions: ED Fungal Skin Infection Tinea, ED Cellulitis Prescriptions: Smz/Tmp Ds [Bactrim Ds] 1 tab PO BID #14 tab Transmission Status: Pending to [facility] Cephalexin [Keflex] 500 mg PO Q6 #28 cap Transmission Status: Pending to [facility] Tolnaftate [Tinactin] 15 gm TP TID #1 cream..g. Transmission Status: Pending to [facility] Referrals: Sandrine Chavez MD [Primary Care Provider] - 3-5 Days
[2020-10-04 11:55] LABS: Bedside Glucose 112 mg/dL (70-110)
== END 2020-10-04 12:21 | disposition home or self-care (01) ==
PROVIDERS: Emergency Provider Emergency Medicine; PCP Internal Medicine
DX: B37.49 Other urogenital candidiasis (principal); N48.22 Cellulitis of corpus cavernosum and penis; F17.200 Nicotine dependence, unspecified, uncomplicated; Z83.3 Family history of diabetes mellitus
CPT/HCPCS: 82962; 99282

== ENCOUNTER 2020-10-07 00:38 | Emergency (ER) | payer MEDICAID, SELFPAY ==
[2020-10-05 13:07] VITALS: BMI 33.0
[2020-10-07 00:38] VITALS: BP 139/79; PULSE 82; RESP 16; TEMP 36.8; O2SAT 98; BMI 37.6
--- NOTE | 2020-10-07 00:46 | ED.VIS.GEN ---
History of Present Illness Chief Complaint: Headache Informant: Patient Narrative: 30-year-old male presenting with headache. He states he feels like it is behind his eyes. He has photophobia and phonophobia. He states he has no history of migraine headache. He has no history of head injury. This is not an acute onset headache. Patient denies any fever or chills. He does admit to some nausea. He states the only medication he takes is Suboxone. He does not have any other health issues that he knows of. 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 - Past Medical History (1) Anxiety Status: Chronic (2) Depression Status: Chronic (3) Insomnia Status: Chronic Past Medical History - Allergies and Home Meds Allergies/Adverse Reactions: Allergies No Known Allergies Allergy (Verified 10/07/20 00:41) Primary Care Physician: Sandrine Chavez MD [Primary Care Provider] - Past Medical History: - - Reviewed in problem list Surgical History: noncontributory, - - Adenoidectomy. Lives: Alone Smoking Status: Never smoker Alcohol: None Drugs: None - Family History Maternal Family History: Family History (Last Reviewed 03/18/20 @ 10:02 by Sonya Kumar) Father Myocardial infarction, Onset Age: 40 Grandfather Diabetes Family History: Reports: No pertinent history Paternal Family History: Family History (Last Reviewed 03/18/20 @ 10:02 by Sonya Kumar) Father Myocardial infarction, Onset Age: 40 Grandfather Diabetes Family History: Reports: No pertinent history Review of Systems General: Denies: Chills, Fever, Sweats Eyes: Denies: Visual changes - bilaterally, Diplopia ENT: Denies: Rhinorrhea, Sore throat Cardiovascular: Denies: Chest pain, Palpitations Respiratory: Denies: Dyspnea, Cough, Dyspnea on exertion Gastrointestinal: Reports: Nausea. Denies: Abdominal pain, Vomiting, Diarrhea, Melena, Hematochezia Genitourinary: Denies: Dysuria, Hematuria, Frequency Musculoskeletal: Denies: Back pain, Extremity Pain Skin: Denies: Rash, Wounds Neurological: Reports: Headache, - - Photophobia and phonophobia. Denies: Parasthesia, Numbness Psych: Denies: Depression, Anxiety Physical Exam Vital Signs/Narrative: Vital Signs Temp Pulse Resp BP Pulse Ox 10/07/20 00:38 98.2 F 82 16 139/79 H 98 General: Well nourished, No Acute Distress Head: Normocephalic, Atraumatic Eyes: Perrl, EOMI ENT: Moist mucous membranes, No rhinorrhea Cardiovascular: Regular rate, Regular rhythm Respiratory: No distress, CTA bilaterally Abdomen: Soft, Nontender, Nondistended Extremities: Nontender, No edema Skin: Normal color, No rash. Negative for: Cyanosis, Diaphoresis Neurological: Alert, Oriented x3, Cranial nerves II-XII grossly intact, Normal Strength, Normal Sensation, - - No focal neurologic deficits or lateralizing signs or symptoms. Psychological: Normal affect, Normal Mood Diagnostic/Tx/Re-eval Clinical Impression(s) from Imaging Studies Brain CT 10/07/20 00:59 IMPRESSION: Normal unenhanced CT scan of the brain. Electronically Signed: Dillard Karthik, at 1:58 EST Tel , Service support , Laboratory Data 10/07/20 10/07/20 01:10 01:10 WBC 7.1 RBC 4.47 L Hgb 13.5 Hct 39.7 L MCV 88.8 MCH 30.2 MCHC 34.0 RDW Std Deviation 37.4 RDW Coeff of Angelita 11.8 Plt Count 168 MPV 9.3 Immature Gran % (Auto) 0.100 Neut % (Auto) 48.8 Lymph % (Auto) 36.0 Posey % (Auto) 10.9 H Eos % (Auto) 3.6 Baso % (Auto) 0.6 Absolute Neuts (auto) 3.5 Absolute Lymphs (auto) 2.57 Nucleated RBC % 0 Sodium 141 Potassium 3.7 Chloride 107 Carbon Dioxide 31.0 Anion Gap 3 L BUN 21 H Creatinine 0.94 Estim Creat Clear Calc 128.42 Est GFR (MDRD) Af Amer 122 Est GFR (MDRD) Non-Af 101 BUN/Creatinine Ratio 22.3 H Glucose 99 Calcium 8.7 - Medical Decision Making Patient presents with headache which presents like a migraine however he has no history of this. He did not have an acute onset headache or thunderclap headache. His physical exam is normal. He has no neurological deficits. Patient was given Reglan, Benadryl as well as a liter of IV fluids. CT brain was negative for acute process. Blood work shows that he is slightly dehydrated. He was already given a liter of IV fluids. On reevaluation the patient is asleep. He was given a dose of Toradol and he feels comfortable being discharged home at this time. Impression: 1. Headache 2. Dehydration ED Disposition - Plan for ED Patient: Disposition: Home or Assisted Living Instructions: ED Headache Unspecified, Dehydration Referrals: Sandrine Chavez MD [Primary Care Provider] -
--- NOTE | 2020-10-07 00:59 | CT_ITS ---
STUDY: CT BRAIN WITHOUT CONTRAST REASON FOR EXAM: Male, 30 years old. C/O KAY WITH NAUSEA RADIATION DOSAGE (If Supplied By Facility): CTDIvol = ( 44.99 ) mGy, DLP = ( 897.35 ) mGycm TECHNIQUE: Transaxial CT imaging of the brain was performed without administration of intravenous contrast material. Individualized dose optimization techniques were used for this CT. COMPARISON: No relevant priors. FINDINGS: Normal soft tissue structures. Normal calvarium. Normal size ventricles and extra-axial spaces for the patient''s age. Normal white matter tracts of the cerebral hemispheres. Normal basal ganglia and thalami. Normal brainstem. Normal cerebellum. There is no intracranial hemorrhage. There are no findings of an acute ischemic infarction. Normal visualized paranasal sinuses. CT/Brain/Head without Contrast IMPRESSION: Normal unenhanced CT scan of the brain. Electronically Signed: Gilma Angeles, at 1:58 EST Tel , Service support ,
[2020-10-07] MEDS: DiphenhydrAMINE 50 MG/ML Syringe 25 MG IV (01:08)
[2020-10-07] MEDS: 0.9% Normal Saline 1,000 ML 999 ML IV (01:08)
[2020-10-07] MEDS: Metoclopramide 10 MG/2 ML Vial IV (01:08)
[2020-10-07 01:15] LABS: Absolute Lymphocyte Count 2.57 X10^3/uL (0.83-4.51); Absolute Neutrophil Count 3.5 X10^3/uL (2.0-7.7); Basophil# 0.04 X10^3/uL; Basophil% 0.6 % (0-1); Eosinophil# 0.26 X10^3/uL; Eosinophils% 3.6 % (0-5); Hematocrit 39.7 % (40-54); Hemoglobin 13.5 g/dL (13.0-16.5); Lymphocyte # 2.57 X10^3/ul (4.0); Mean Corpuscular Hgb 30.2 pg (27.0-32.0); Mean Corpuscular Volume 88.8 fL (80-94); Mean Platelet Vol. 9.3 fl (6.2-12.0); Monocyte# 0.78 X10^3/uL; Monocyte% 10.9 % (0-10); NRBC Flagged by Analyzer 0 % (0-5); Neutrophil # 3.48 X10^3/uL (2.7-7.7); Neutrophil % 48.8 % (47-70); Platelet Count 168 K/mm3 (150-450); RBC Distribution Width CV 11.8 % (11.6-14.6); RBC Distribution Width SD 37.4 fl (35.1-43.9); Red Blood Count 4.47 M/mm3 (4.6-6.2); White Blood Count 7.1 K/mm3 (4.4-11.0)
[2020-10-07 01:28] LABS: Anion Gap 3 (5-15); BUN 21 mg/dL (7-18); BUN/Creat Ratio 22.3 RATIO (10-20); Calcium,Total 8.7 mg/dL (8.5-10.1); Chloride 107 mmol/L (98-107); Creatinine, Serum 0.94 mg/dL (0.70-1.30); EST Glomerular Filtration Rate 101 mL/min (>60); Est Glom Filt Rate - Afr Amer 122 mL/min (>60); Estimated Creatinine Clearance 128.42 ml/min; Glucose 99 mg/dL (74-106); Potassium 3.7 mmol/L (3.5-5.1); Sodium Level 141 mmol/L (136-145)
[2020-10-07] MEDS: Ketorolac 15 MG/ML Vial IV (02:31)
[2020-10-07 02:42] VITALS: BP 130/68; PULSE 87; RESP 18; O2SAT 96
== END 2020-10-07 02:43 | disposition home or self-care (01) ==
PROVIDERS: Emergency Provider Student in an Organized Health Care Education/Training Program; PCP Internal Medicine
DX: R51.9 Headache, unspecified (principal); E86.0 Dehydration
CPT/HCPCS: 70450; 80048; 85025; 96361; 96374; 96375; 99282; J7030; A4216

== ENCOUNTER 2020-10-07 09:40 | Emergency (ER) | payer MEDICAID, SELFPAY ==
[2020-10-07 00:38] VITALS: BMI 37.6
[2020-10-07 09:40] VITALS: BP 129/85; PULSE 81; RESP 16; TEMP 36.6; O2SAT 99; BMI 32.5
--- NOTE | 2020-10-07 09:54 | ED.DCSUM_ITS ---
History of Present Illness Chief Complaint: Headache Informant: Patient Narrative: Patient states that since yesterday he has had a headache. Initially he describes it as frontal around his eyes. He notes phonophobia and photophobia. States it hurts to put pressure on his eyes. Later he states that the headache is actually all around his head. He denies any fevers or other neurologic symptoms. He notes he had some diarrhea that began yesterday. He denies any cough shortness of breath runny nose. Patient was seen overnight in the emergency department where he had basic blood work that was negative and a head CT that was negative. He states he does not have a history of migraines. He currently takes Suboxone and states he has been compliant with it. - Past Medical History (1) Anxiety Status: Chronic (2) Depression Status: Chronic (3) Tobacco abuse Status: Chronic Past Medical History - Allergies and Home Meds Allergies/Adverse Reactions: Allergies No Known Allergies Allergy (Verified 10/07/20 09:40) Primary Care Physician: Sandrine Chavez MD [Primary Care Provider] - Surgical History: noncontributory, - - Adenoidectomy. Smoking Status: Never smoker - Family History Maternal Family History: Family History (Last Reviewed 03/18/20 @ 10:02 by Sonya Kumar) Father Myocardial infarction, Onset Age: 40 Grandfather Diabetes Family History: Reports: No pertinent history Paternal Family History: Family History (Last Reviewed 03/18/20 @ 10:02 by Sonya Kumar) Father Myocardial infarction, Onset Age: 40 Grandfather Diabetes Family History: Reports: No pertinent history Review of Systems General: Denies: Chills, Fever, Sweats Eyes: Reports: - - Photophobia. Denies: Visual changes - bilaterally, Diplopia ENT: Reports: - - Phonophobia. Denies: Rhinorrhea, Sore throat Cardiovascular: Denies: Chest pain, Palpitations Respiratory: Denies: Dyspnea, Cough, Dyspnea on exertion Gastrointestinal: Denies: Abdominal pain, Nausea, Vomiting, Diarrhea, Melena, Hematochezia Genitourinary: Denies: Dysuria, Hematuria, Frequency Musculoskeletal: Denies: Back pain, Extremity Pain Skin: Denies: Rash, Wounds Neurological: Reports: Headache. Denies: Weakness, Numbness Physical Exam Vital Signs/Narrative: Vital Signs Temp Pulse Resp BP Pulse Ox 10/07/20 09:40 97.8 F 81 16 129/85 H 99 Inital Vital Signs reviewed: Yes General: Well nourished, Well developed, No Acute Distress, - - Lying in a dark room. Head: Normocephalic, Atraumatic Eyes: Perrl, EOMI ENT: Moist mucous membranes, No rhinorrhea Neck: Supple, Nontender Cardiovascular: Regular rate, Regular rhythm, No murmurs Respiratory: No distress, CTA bilaterally, Chest nontender Abdomen: Soft, Nontender, Nondistended, Normal bowel sounds Back: Nontender, Normal Inspection Extremities: Nontender, No edema Skin: Normal color, No rash Neurological: Alert, Oriented x3, Cranial nerves II-XII grossly intact, Normal Strength, Normal Sensation Psychological: Normal affect, Normal Mood Diagnostic/Tx/Re-eval - Medical Decision Making Patient initially received a dose of Imitrex. Nursing woke him up from sleep and he stated that he was no better. I gave Toradol Compazine Benadryl. I woke the patient up and he again tells me that he is no better. He however appears and acts completely uninterested in discussing further treatment or home care. He will not take the blanket off of his head. He returns and rolls away from me. Has no neurologic deficits. I am unsure if there is a reason for secondary gain. But the patient has basically slept his entire emergency department cou rse. At this point I do not believe the patient has a medical emergency that would necessitate admission. I will write for him to have Toradol Reglan and Reglan at home. He should follow-up with his primary care doctor. ED Disposition - Plan for ED Patient: Disposition: Home or Assisted Living Diagnosis: Headache Instructions: ED Headache Unspecified Prescriptions: Prednisone [Deltasone] 60 mg PO DAILY #15 tab Prescription Printed Metoclopramide [Reglan] 10 mg PO 4X/DAY PRN #20 tab PRN Reason: Headache Prescription Printed Ketorolac [Toradol] 10 mg PO Q8H PRN #15 tab PRN Reason: Headache Prescription Printed Referrals: Sandrine Chavez MD [Primary Care Provider] - As soon as possible
[2020-10-07] MEDS: SUMAtriptan 6 MG/0.5 ML Vial SC (10:02)
[2020-10-07] MEDS: MethylPREDNISolone 125 MG/2 ML Vial IV (13:03)
[2020-10-07] MEDS: Ketorolac 30 MG/ML Syringe IV (13:03)
[2020-10-07] MEDS: DiphenhydrAMINE 50 MG/ML Syringe 25 MG IV (13:04)
[2020-10-07] MEDS: proCHLORPERazine 10 MG/2 ML Vial IV (13:04)
[2020-10-07 13:12] VITALS: PULSE 79; RESP 18; O2SAT 99
[2020-10-07 15:05] VITALS: PULSE 72; RESP 18; O2SAT 99
== END 2020-10-07 15:07 | disposition home or self-care (01) ==
PROVIDERS: Emergency Provider Emergency Medicine; PCP Internal Medicine
DX: R51.9 Headache, unspecified (principal); E86.0 Dehydration
CPT/HCPCS: 70450; 80048; 85025; 96372; 96374; 96375; 99282; 99284; J7030; A4216; J3030

== ENCOUNTER 2020-11-01 17:56 | Emergency (ER) | payer MEDICAID, SELFPAY ==
[2020-11-01 17:56] VITALS: BP 133/67; PULSE 100; RESP 18; TEMP 36.6; O2SAT 98; BMI 32.5
--- NOTE | 2020-11-01 18:44 | ED.DCSUM_ITS ---
- ER Visit Summary Date of Service: 11/01/20 Chief Complaint: Abscess History of Present Illness: The patient is a 30 M who presents with an abscess. He has had it for 4 days. Is in the right posterior thigh. Today he was in the shower when it started draining. He has a history of MRSA. He denies any f earlene. It is painful locally. Physical Examination: Vital signs reviewed. Right leg exam reveals a 3 x 3 cm abscess in the right posterior thigh. There is erythema noted. It is mildly fluctuant with mild drainage at this time. Test Results: None performed Emergency Department Course and Treatment: Patient had incision and drainage. Chlorhexidine was used to cleanse the area. 2 cc of lidocaine was used to anesthetize the area in a field block fashion. Cruciate incision was made over the dome of the abscess. Loculations were broken with a hemostat. Small amount of purulence returned. Patient will do warm compresses. I will place him on antibiotics and he will follow-up with his doctor Treatment Plan: [] Disposition: Discharge Impression: Right thigh abscess, 3 x 3 cm Incision and drainage by ED physician This note was generated with [employer] dictation software. It may contain incorrect words, spelling, and punctuation that were not noted in review of the chart prior to signing ED Disposition - Plan for ED Patient: Disposition: Home or Assisted Living Instructions: ED Abscess Incision And Drainage Prescriptions: Smz/Tmp Ds [Bactrim Ds] 1 tab PO BID #14 tab Transmission Status: Pending to [facility]30 Referrals: Sandrine Chavez MD [Primary Care Provider] -
[2020-11-01] MEDS: Smz/Tmp Ds Tablet 1 TABLET PO (18:50)
[2020-11-01 18:51] VITALS: RESP 16
[2020-11-01] MEDS: Lidocaine 1% (20 ml mdv) 20 ML Vial INFILT (18:51)
== END 2020-11-01 18:53 | disposition home or self-care (01) ==
PROVIDERS: Emergency Provider Emergency Medicine; PCP Internal Medicine
DX: L02.415 Cutaneous abscess of right lower limb (principal); Z86.14 Personal history of Methicillin resistant Staphylococcus aureus infection; Z72.0 Tobacco use
CPT/HCPCS: 10060; 99283

== ENCOUNTER 2021-04-10 12:42 | Emergency (ER) | payer MEDICAID, SELFPAY ==
[2021-01-26 15:08] VITALS: BMI 34.9
[2021-04-10 12:43] VITALS: BP 136/73; PULSE 78; RESP 16; TEMP 36.8; O2SAT 96; BMI 33.9
--- NOTE | 2021-04-10 13:35 | RAD_ITS ---
STUDY: X-RAY - LUMBAR SPINE REASON FOR EXAM: Male, 31 years old. Lower back pain x 4 days, NKI. TECHNIQUE: 3 view(s) of the lumbar spine were obtained. COMPARISON: None FINDINGS: Normal lumbar lordosis. There is no substantial scoliosis. There is a normal alignment of the vertebrae. Normal vertebral bodies and endplates. Normal disc space heights. The soft tissue structures are unremarkable. RAD/Lumbar Spine 2 or 3 Views IMPRESSION: Normal x-ray examination of the lumbar spine. Electronically Signed: Gio Marcos MD at 14:03 EDT , Service support ,
--- NOTE | 2021-04-10 14:43 | EDS_ITS ---
HPI History of Present Illness Chief Complaint: Back Informant: patient Onset/Context/Timing Onset: Days (4) Context: Gradual Onset Timing: Continuous Quality: Aching Location: Lumbar Worsened by: improves with Movement Relieved by: Nothing Associated Symptoms Associated Symptoms: Negative for Numbness, Tingling, Radiation to Right Leg, Radiation to Left Leg, Fever, Abdominal Pain, Dysuria, Unable to Ambulate, Unable to Transfer, Urinary Retention, Urinary Incontinence, Constipation and Fecal Incontinence Narrative Narrative: Patient presents with low back pain that has been constant for the past 4 days. Patient states it is gradually gotten worse. Patient describes pain as aching. Patient states the pain is over the lower lumbar area but worse on the right. Patient denies any direct trauma or injury. Patient states pain is worse with certain movements. Patient states nothing seems to help with the pain. Patient states he has been trying [id number] ibuprofen, Tylenol, Biofreeze, ice, and heat with minimal relief. [facility] Medical History (Updated 04/10/21 @ 14:[address] Miles Pro DO) Anxiety H/O drug dependence/abuse Home Medications buprenorphine 8 mg-naloxone 2 mg sublingual film 1 film SUBLINGUAL DAILY 10/05/20 [History Last Taken Unknown] naproxen 500 mg PO BID PRN #20 tab 04/10/21 [Rx Last Taken Unknown] Allergy/AdvReac Type Severity Reaction Status Date / Time No Known Allergies Allergy Verified 04/10/21 12:44 Family History Father Myocardial infarction, Onset Age: 40 Grandfather Diabetes Surgical History history of facial reconstruction History of tonsillectomy Social History Smoking Status: Current every day smoker Tobacco: How many years used: 13 Electronic Cigarette Use: with nicotine alcohol intake: never substance use type: former substance user Date of last use: 01/06/18, heroin and methamphetamine what type of physical activity do you participate in: none ROS ROS ED Constitutional Constitutional ED: Denies chills or fever(s) Eyes Eyes: Denies blurry vision or change in vision ENT ENT ED: Denies rhinorrhea or sore throat Cardiovascular Cardiovascular: Denies chest pain or palpitations Respiratory/Chest Respiratory/Chest: Denies cough or dyspnea Gastrointestinal Gastrointestinal: Denies nausea or vomiting Genitourinary Genitourinary ED: Denies dysuria or hematuria Musculoskeletal Musculoskeletal: Reports back pain; Denies neck pain Integumentary Denies abscess or rash Neurologic Neurologic: Denies headache(s) or weakness Allergic/Immunologic Allergic/Immunologic ED: Denies mouth swelling or urticaria EXAM Physical Exam Const Vital Signs: 04/10/21 12:43 Temperature 98.3 F Temperature Source Temporal Pulse Rate 78 Respiratory Rate 16 Blood Pressure 136/73 H Blood Pressure Mean 94 Pulse Ox 96 Oxygen Delivery Method Room Air Positive well nourished and well developed General Appearance ED: well developed HEENT Reports moist mucous membranes Neck supple and no JVD Resp normal respiratory effort and clear to auscultation bilaterally Cardio regular rate and regular rhythm GI normal to inspection, nondistended, normoactive bowel sounds, soft to palpation and non-tender Back/Spine Back/Spine Narrative: There is tenderness and spasm of the lumbar paraspinal muscles, worse on the right. There is also some mild midline tenderness. There is no bony crepitance or step-off. Range of motion was limited in all motions of the lumbar spine secondary to pain. Lumbar Spine / Lower Back: ROM limited and straight leg raise negative bilaterally Neuro oriented x3 and no sensory deficits noted Sensorium / Orientation: alert Motor Exam: strength 5/5 throughout Deep Tendon Reflexes: Rt Patellar (L4): 1+, Lt Patellar (L4): 1+, Rt Ankle (S1): 1+ and Lt Ankle (S1): 1+ Deep Tendon Reflexes Back: Rt Patellar (L4): 1+, Lt Patellar (L4): 1+, Rt Ankle (S1): 1+ and Lt Ankle (S1): 1+ Psych mental status grossly normal MDM MDM MDM Narrative Medical decision making narrative: X-rays of the lumbar spine were obtained. There are 3 views. On my interpretation, there is no acute fracture, spondylolisthesis, or spondylolysis. There is no scoliosis noted. Disc spaces were preserved. Radiologist also interpreted the x-rays and degrees. Radiography Diagnostic Testing: Radiology Impression Lumbar Spine X-Ray 04/10/21 13:35 IMPRESSION: Normal x-ray examination of the lumbar spine. Electronically Signed: Gio Marcos MD at 14:03 EDT , Service support , Discharge Plan Triage Chief Complaint: Back ED Provider: Miles Pro Dx/Rx/DC Orders Clinical Impression: Acute lumbosacral myofascial strain Instructions: ED Back Sprain/Strain Prescriptions: New naproxen 500 MG tablet 500 mg PO BID PRN Qty: 20 RF: 0 No Action buprenorphine-naloxone [Suboxone] 8-2 mg film 1 film SUBLINGUAL DAILY RF: 0 Primary Care Provider: Sandrine Chavez Referrals: Sandrine Chavez MD [Primary Care Provider] - 5-7 Days Disposition Disposition: Home, self care
[2021-04-10 15:19] VITALS: PULSE 74; RESP 17; O2SAT 98
== END 2021-04-10 15:20 | disposition home or self-care (01) ==
PROVIDERS: Emergency Provider Emergency Medicine; PCP Internal Medicine
DX: S39.012A Strain of muscle, fascia and tendon of lower back, initial encounter (principal); X58.XXXA Exposure to other specified factors, initial encounter; Y93.9 Activity, unspecified; Y92.9 Unspecified place or not applicable; Y99.9 Unspecified external cause status; F17.200 Nicotine dependence, unspecified, uncomplicated
CPT/HCPCS: 72100; 99282

== ENCOUNTER 2021-07-24 08:28 | Emergency (ER) | payer MEDICAID, SELFPAY ==
[2021-07-24 08:30] VITALS: BP 123/74; PULSE 72; RESP 18; TEMP 35.8; O2SAT 95; BMI 37.0
--- NOTE | 2021-07-24 08:53 | EDS_ITS ---
HPI History of Present Illness Chief Complaint: Eye Problem Informant: patient Narrative Narrative: Foreign body sensation left eye since yesterday. Playing on the couch when he felt symptoms. Mild blurry vision. No significant pain. Does not wear contacts or glasses. Reports last eye exam was 1 to 2 years ago. Denies headache. Prior similar symptoms: No PFSH [facility] Medical History (Updated 07/24/21 @ 09:[address] Mamadou Cerna DO) Anxiety H/O drug dependence/abuse Home Medications polymyxin B sulf-trimethoprim [Polytrim] 1 drp LEFT EYE TID 7 Days ml 07/24/21 [Rx Last Taken Unknown] Allergy/AdvReac Type Severity Reaction Status Date / Time No Known Allergies Allergy Verified 07/24/21 08:31 Family History Father Myocardial infarction, Onset Age: 40 Grandfather Diabetes Surgical History history of facial reconstruction History of tonsillectomy Social History Smoking Status: Current every day smoker tobacco type: e-cigarettes Tobacco: How many years used: 13 Electronic Cigarette Use: with nicotine alcohol intake: never substance use type: former substance user Date of last use: 01/06/18, heroin and methamphetamine what type of physical activity do you participate in: none ROS ROS ED Constitutional Constitutional ED: Denies chills, fever(s) or sweats Eyes Eyes: Reports blurry vision and other Details: Left foreign body sensation ; Denies change in vision ENT ENT ED: Denies dysphagia or sore throat Cardiovascular Cardiovascular: Denies chest pain, leg edema, palpitations or racing heartbeat Respiratory/Chest Respiratory/Chest: Denies cough, dyspnea or dyspnea on exertion Gastrointestinal Gastrointestinal: Denies abdominal pain, diarrhea, nausea or vomiting Genitourinary Genitourinary ED: Denies dysuria, hematuria or urinary frequency Musculoskeletal Musculoskeletal: Denies back pain, extremity pain or neck pain Integumentary Denies rash or wounds Neurologic Neurologic: Denies headache(s), paresthesias or weakness EXAM Physical Exam Const Vital Signs: 07/24/21 08:30 Temperature 96.4 F L Temperature Source Temporal Pulse Rate 72 Respiratory Rate 18 Blood Pressure 123/74 H Blood Pressure Mean 90 Pulse Ox 95 Oxygen Delivery Method Room Air Positive well nourished and well developed General Appearance ED: well developed and NAD HEENT Reports moist mucous membranes normocephalic and atraumatic Eyes PERRL, EOMs intact bilaterally and conjunctivae normal Slit Lamp: slit lamp exam performed with fluorescein Neck no lymphadenopathy and supple Neck Narrative: Visual acuity 20/20 each eye, 20/15 OU. Left eye examination eyelids everted with moist Q-tips, there is no foreign bodies. Mild erythema of the sclera. Tetracaine instilled with fluorescein under slit-lamp examination. There was dryness uptake from the 6:00 to 12 o'clock position of the cornea. There is no abrasions or ulcerations. No foreign body seen. General: Negative for tenderness Chest Wall Chest: Negative for tenderness Resp normal respiratory effort and normal air movement Effort and Inspection: symmetric chest movement; Negative for respiratory distress Cardio regular rate, regular rhythm and no murmurs Peripheral Pulses: pulses 2+ throughout GI normal to inspection, nondistended, normoactive bowel sounds and non-tender Palpation: Negative for guarding or rebound tenderness present Back/Spine no CVA tenderness and no thoracic nor lumbar tenderness Extremity normal to inspection General Extremety ED: Negative for edema or tenderness General Extremity: Negative for edema Neuro oriented x3 and no sensory deficits noted Sensorium / Orientation: awake and alert Skin no rashes or lesions noted and no wounds MDM MDM MDM Narrative Medical decision making narrative: Patient exam concerns for keratitis 6 to 12 o'clock position. He did admit to rubbing his eyes. He will be placed on antibiotic drops, discussed rewetting drops in between. Follow-up given with ophthalmology. Discharge Plan Triage Chief Complaint: Eye Problem ED Provider: Mamadou Cerna Dx/Rx/DC Orders Clinical Impression: Keratitis sicca, left eye Instructions: ED Conjunctivitis, Viral Prescriptions: New polymyxin B sulf-trimethoprim [Polytrim] 10,000 unit- 1 mg/mL drops 1 drp LEFT EYE TID 7 Days RF: 0 Primary Care Provider: Sandrine Chavez Referrals: Sandrine Chavez MD [Primary Care Provider] - Steve Kumari MD [STAFF PHYSICIAN] - 1 Day Activity Restrictions/Additional Instructions: Use prescription drops as prescribed. Rewetting drops in between. Follow-up with ophthalmology. Disposition Disposition: Home, Self Care
[2021-07-24] MEDS: Fluorescein 1 MG STRIP 1 STRIP OPHTHALMIC (08:58)
[2021-07-24] MEDS: Tetracaine 0.5% Ophthalmic Bottle OPHTHALMIC (08:58)
[2021-07-24 09:54] VITALS: PULSE 79; RESP 16; O2SAT 100
--- NOTE | 2021-07-24 09:55 | ED.RN ---
THIS NURSE REVIEWED D/C INSTRUCTIONS WITH PT. PT VERBALIZED UNDERSTANDING OF INSTRUCTIONS. PT DENIES FURTHER NEEDS OR QUESTIONS AT [facility]
== END 2021-07-24 09:55 | disposition home or self-care (01) ==
LOC: ED 09:44
PROVIDERS: Emergency Provider Emergency Medicine; PCP Internal Medicine
DX: H16.222 Keratoconjunctivitis sicca, not specified as Sjogren's, left eye (principal); F17.290 Nicotine dependence, other tobacco product, uncomplicated
CPT/HCPCS: 99283

== ENCOUNTER 2021-11-19 17:46 | Emergency (ER) | payer MEDICAID, SELFPAY ==
[2021-11-19 17:47] VITALS: BP 123/99; PULSE 85; RESP 18; TEMP 36.6; O2SAT 95; BMI 33.9
--- NOTE | 2021-11-19 21:06 | ED.RN ---
called to triage desk to start IV and bloodwork patient was no longer here.
== END 2021-11-19 21:03 | disposition left against medical advice (07) ==
LOC: ED 21:05
PROVIDERS: PCP Internal Medicine
DX: K92.1 Melena (principal); Z53.21 Procedure and treatment not carried out due to patient leaving prior to being seen by health care provider

== ENCOUNTER 2021-12-19 11:27 | Outpatient (CLI) | payer MEDICAID, SELFPAY ==
[2021-12-19 13:21] LABS: Erythrocyte Sedimentation Rate 18 mm/hr (0-20)
[2021-12-19 13:22] LABS: Absolute Neutrophil Count 4.1 X10^3/uL (2.0-7.7); Basophil# 0.04 X10^3/uL; Basophil% 0.5 % (0-1); Eosinophil# 0.24 X10^3/uL; Eosinophils% 3.2 % (0-5); Hematocrit 41.5 % (40-54); Hemoglobin 14.4 g/dL (13.0-16.5); Lymphocyte % 32.4 % (19-41); Mean Corp Hgb Conc 34.7 g/dL (32-36); Mean Corpuscular Hgb 29.8 pg (27.0-32.0); Mean Corpuscular Volume 85.9 fL (80-94); Mean Platelet Vol. 9.7 fl (6.2-12.0); Monocyte# 0.65 X10^3/uL; Monocyte% 8.8 % (0-10); NRBC Flagged by Analyzer 0 % (0-5); Neutrophil # 4.05 X10^3/uL (2.7-7.7); Neutrophil % 54.7 % (47-70); Platelet Count 224 K/mm3 (150-450); RBC Distribution Width CV 11.8 % (11.6-14.6); RBC Distribution Width SD 37.2 fl (35.1-43.9); Red Blood Count 4.83 M/mm3 (4.6-6.2); White Blood Count 7.4 K/mm3 (4.4-11.0)
[2021-12-19 13:52] LABS: CRP < 2.90 mg/L (0.0-3.0); LDH 212 U/L (87-241)
[2021-12-20 15:08] LABS: Anti-Centromere B Ab <0.2 AI (0.0-0.9); Anti-Chromatin <0.2 AI (0.0-0.9); Anti-Jo <0.2 AI (0.0-0.9); Anti-Scleroderma-70 AB <0.2 AI (0.0-0.9); RNP Ab <0.2 AI (0.0-0.9); SJOGREN'S Anti-SS-A test < 0.2 AI (0.0-0.9); SJOGREN'S Anti-SS-B test < 0.2 AI (0.0-0.9); Smith Ab <0.2 AI (0.0-0.9)
[2021-12-20 17:24] LABS: Anti-Mitochondrial AB <20.0 Units (0.0-20.0); Anti-dsDNA Ab 1 IU/mL (0-9)
[2021-12-24 04:06] LABS: Cytoplasmic Ab (C-ANCA) <1:20 titer (Neg:<1:20); Endomysial Antibody IgA Negative (Negative); HEPATITIS B SURFACE AG Negative (Negative); Hepatitis A IgM Antibody Negative (Negative); Hepatitis B Core AB IgM Negative (Negative); Immunoglobulin A 252 mg/dL (90-386); Immunoglobulin E 30 IU/mL (6-495); Immunoglobulin G 1115 mg/dL (603-1613)
[2021-12-24 07:43] LABS: Anti-Smooth Muscle ABS 7 Units (0-19); Hep C Antibodies >11.0 s/co ratio (0.0-0.9); Immunoglobulin M 120 mg/dL (20-172); Perinuclear Ab (P-ANCA) <1:20 titer (Neg:<1:20); t-Transglutaminase IgA <2 U/mL (0-3)
== END 2021-12-19 23:59 | disposition short-term general hospital (02) ==
LOC: LAB 11:29
PROVIDERS: PCP Internal Medicine; Referring Provider Internal Medicine Gastroenterology; Visit Provider Internal Medicine Gastroenterology
DX: R19.7 Diarrhea, unspecified (principal)
CPT/HCPCS: 36415; 80074; 82784; 82785; 83516; 83615; 85025; 85652; 86140; 86225; 86235; 86255; 86256

== ENCOUNTER 2022-01-16 13:51 | Outpatient (CLI) | payer MEDICAID, SELFPAY ==
[2022-01-18 06:08] LABS: QNTFERON TB Mitogen Value > 10.00 IU/mL (.); QNTFERON TB Nil Value 0 IU/mL (.); QNTFERON TB1+ Ag Value 0.02 IU/mL (.); QNTFERON TB2+ Ag Value 0.02 IU/mL (.)
[2022-01-18 18:54] LABS: QNTIFERON TB Positive Criteria Negative (Negative)
[2022-01-18 20:08] LABS: HCV Quant. RNA PCR HCV Not Detected IU/mL (.)
== END 2022-01-16 23:59 | disposition home or self-care (01) ==
LOC: LAB 13:53
PROVIDERS: Nurse Practitioner Adult Health; PCP Internal Medicine; Referring Provider Internal Medicine Gastroenterology; Visit Provider Internal Medicine Gastroenterology
DX: R76.8 Other specified abnormal immunological findings in serum (principal)
CPT/HCPCS: 36415; 86480; 87522

== ENCOUNTER 2022-01-19 16:09 | Outpatient (CLI) | payer MEDICAID, SELFPAY ==
--- NOTE | 2022-01-19 16:11 | CT_ITS ---
STUDY: CT Abdomen And Pelvis W/ Contrast Injection 01/19/2022 9:21 PM REASON FOR EXAM: Male, 31 years old. ABDOMINAL PAIN diarrhea TECHNIQUE: Transaxial images were obtained with oral contrast, and with ORAL AND IV ISOVUE 300 100 ML intravenous contrast. Individualized dose optimization techniques were used for this CT. COMPARISON: None. FINDINGS: The visualized lung bases are unremarkable. The visualized portions of the heart are within normal limits. Normal liver. Normal gallbladder and extrahepatic biliary system. Normal spleen. Normal pancreas. Normal bilateral adrenal glands. No acute findings of the right kidney. No acute findings of the left kidney. Normal visualized stomach. Normal small intestine. Stool throughout the colon. The appendix is visualized and appears normal. Multiple scattered mesenteric, cecal, periappendiceal, and periaortic lymph nodes. This can suggest mesenteric adenitis. There are no acute findings of the abdominal aorta. Normal inferior vena cava. Subcentimeter mesenteric lymph nodes. Normal urinary bladder. There is an umbilical hernia containing fat. Minimal inflammatory stranding noted in the right and left subcutaneous fat anteriorly. This can suggest insulin injection sites. Normal osseous structures. IMPRESSION: (NOT LISTED IN ORDER OF SIGNIFICANCE) Multiple scattered mesenteric, cecal, periappendiceal, and periaortic lymph nodes. This can suggest mesenteric adenitis. Other findings as above. Electronically Signed: Nestor Perez MD at 21:22 [facility] , CT/Abdomen/Pelvis WITH Contrast
== END 2022-01-19 23:59 | disposition home or self-care (01) ==
LOC: CT 16:11
PROVIDERS: PCP Internal Medicine; Visit Provider Internal Medicine Gastroenterology
DX: R19.7 Diarrhea, unspecified (principal)
CPT/HCPCS: 74177; Q9967

== ENCOUNTER 2022-01-30 10:57 | Day surgery (SDC) | payer MEDICAID, SELFPAY ==
[2022-01-30] VITALS (7 sets, daily range): BP systolic 94–134; BP diastolic 55–71; PULSE 63–76; RESP 16; TEMP 36.1–36.8; O2SAT 96–100; BMI 37.0
[2022-01-30] MEDS: Lactated Ringers 1,000 ML 15 ML IV (11:25)
--- NOTE | 2022-01-30 11:46 | HP.PCM_ITS ---
History and Physical Date of Admission: 01/30/22 LATOYA GARCIA, is a 31 M who presents to the office today for evaluation of abdominal pain and diarrhea. He has no past medical history of inflammatory bowel disease. He does not have any family with inflammatory bowel disease. He has not had an upper or lower endoscopy. Patient mostly has diarrhea after eating. He is not having any chest pain or shortness of breath. He is not having any nausea. He is having more than 5 bowel per day with intermittent tenesmus. He does smoke cigarettes and had a substance abuse problem with heroin and metafeta means but he was able to quit back in December 2017. ROS Const Constitutional: Positive for fatigue; No excessive sweating, frequent falls, headache(s), snoring, weakness or weight change Eyes Eyes: No blurry vision, change in vision, double vision, irritation, discharge, vision loss, dry eyes, bulging eyes, floaters, visual disturbances, eye pain, Light sensitivity, spots in vision, tunnel vision or other ENT ENT: No abnormal hearing, ear or mastoid pain, ear discharge, ear pressure, hearing loss, tinnitus, dizziness/vertigo, balance problems, nosebleed/epistaxis, nasal congestion, nasal obstruction, nose pain, sinus pressure, sinus pain, nasal discharge, post nasal drip, headache(s), facial pain, dental pain, dry mouth, bad breath, hoarseness, lip swelling, mouth lesions, mouth pain, neck pain, sore throat, tongue swelling, throat swelling or other Resp Respiratory: No cough, change in phlegm color, chest congestion, excessive phlegm production, hemoptysis, pain on inspiration, shortness of breath, pain with cough, snoring, stridor, wheezing or other Cardio Cardiology: No chest pain at rest, chest pain with exertion, leg pain with exertion, excessive sweating, shortness of breath, dyspnea on exertion, generalized swelling, irregular heart rhythm, lightheadedness, orthopnea, radiating jaw, neck or arm pain, fast heart rate, slow heart rate, palpitations, difficulty breathing or other Gastro GI: Positive for abdominal pain, bloating, change in bowel habits, constipation and diarrhea Genitourinary Male: No difficulty urinating, burning urination, painful urination, urinary incontinence, urinary frequency, urinary urgency, urinary hesitancy, urinary retention, blood in urine, Frequent nighttime urination/ nocturia, post void dribbling, suprapubic fullness, side pain, sexual problems, genital lesions, genital itching, erectile dysfunction, penile discharge, difficulty with ejaculations, blood in semen, scrotal swelling, testicle lump, testicle pain or other Musc Musculoskeletal: No abnormal gait, joint pain, back pain, deformity, joint swelling, limited range of motion, loss of height, muscle cramps, muscle weakness, decreased muscle mass, myalgias, neck pain, numbness, radiating pain into limb, stiffness, tingling, Arthritis, sciatica, restless legs, leg pain at night, leg pain with exertion or other Skin Skin: No acne, hair loss in leg, change in hair, nail changes, boil, change in skin color, dry skin, redness, excessive hair growth, yellowing of the eye, lesions, itchy eyes, rash, skin pain, skin ulcer, sores, skin swelling, wounds or other Breast Breast: No change in breast shape, breast lump, breast pain, breast skin changes, breast swelling, nipple discharge or other Neuro Neurology: No abnormal gait, abnormal hearing, abnormal movements, abnormal speech, unsteady gait/balance, dizziness, weakness, frequent falls, headache(s), lack of coordination, loss of vision, numbness, tingling, visual disturbances, restless legs, fainting, tremor(s), Increased tone in limbs, paralysis, seizures or other Psych Psychiatric: Positive for anxiety, Positive for depression and Positive for inattentiveness Endo Endocrine: Positive for fatigue; No change in body appearance, cold intolerance, excessive sweating, flushing, heat intolerance, increased thirst/drinking, increased hunger, increased urine leakage, weight change or other Aller/Imm Allergy/Immunologic: No itchy eyes, lip swelling, throat swelling, tongue swelling or wheezing Exam Const General: cooperative and comfortable Nutritional Appearance: average body habitus and well nourished [facility] Head: normal to inspection Ears: hearing grossly normal bilaterally Nose: external nose normal Face and sinus: normal facial exam Mouth: oral mucosae normal Throat: posterior oropharynx normal Eyes General: appearance normal, both eyes and all related structures Neck Neck: normal visual inspection Chest Chest palpation & inspection: normal inspection of the chest and normal palpation of entire chest wall Resp Effort & Inspection: normal respiratory effort Auscultation: Bilateral: Clear to Auscultation Cardio Palpation: normal PMI Rate: regular rate Rhythm: regular rhythm GI Inspection: normal to inspection Auscultation: normal bowel sounds Percussion: normal to percussion Palpation: no hepatosplenomegaly Skin General: no rashes or lesions noted Neuro General: patient alert Extrem General: normal to inspection Psych Affect: normal affect Quality Reporting Tobacco Screening ([facility]) Smoking Status: Current every day smoker Assessment and Plan Assessment and Plan (1) Non-specific colitis: Plan - Dr. Mackey Friend, DO: His CT scan of the pelvis did show nonspecific colitis. The differential diagnosis could be Crohn's colitis, ulcerative colitis, lymphocytic colitis less likely infectious colitis. Upper lower endoscopy evaluation of lower GI tract. We will level for celiac disease. He will get an ESR, CRP to emergency in which inflammation he has gone on the body. (2) Diarrhea: Status: Acute Orders: Orders: CRP 12/19/21 LDH 12/19/21 CBC W/Diff, Automated 12/19/21 Anti-Mitochondrial AB 12/19/21 Hepatitis Panel Acute 12/19/21 ANCA 12/19/21 Anti-Smooth Muscle ABS 12/19/21 Celiac Disease Profile 12/19/21 Immunoglobulin E 12/19/21 Immunoglobulin G 12/19/21 Immunoglobulin M 12/19/21 Erythrocyte Sed Rate 12/19/21 Abdomen/Pelvis WITH Contrast 12/19/21 I have re-examined the patient. There are no clinical changes since date of exam.
--- NOTE | 2022-01-30 12:00 | EGD_PTH ---
PATIENT: LATOYA GARCIA LOC: EN U#:[id number] AGE/SX: 31/M ROOM: RE01/30/[address]: Dr. Narendra Cooper DO : 1990 BED: DIS: 01/30/2022 SPEC #: [id number] RECD: 01/30/22 16:43 STATUS: ELVIA ROSALBA #: [id number] CRISTIAN: 01/30/22 12:[address]: Narendra Cooper DEPT: SURGICAL PATHOLOGY RECD BY: Paula Mccarthy ENTERED: 01/31/22 09:07 SP TYPE: EGD BIOPSY [facility] DR: Dr. Sandrine Chavez MD Tissues: A - Duodenum, NOS B - Gastric mucous membrane C - Esophagus, NOS D - Ileum, NOS E - COLON BIOPSY Procedures: Special Stain Group II Surgery Specimen Level IV Alcian Blue/PAS (control) HEADER OPERATION: Colonoscopy with biopsy, EGD with biopsy ([facility] [place] [place]) PRE-OP DIAGNOSIS: Nonspecific colitis, diarrhea TISSUE SUBMITTED: A ? Duodenum biopsy, B ? Gastric antrum biopsy (H. pylori and path), C ? Distal esophagus biopsy, D ? Terminal ileum biopsy, E ? Random colon biopsy MICROSCOPIC DIAGNOSIS A. Duodenum, biopsy: Mild nonspecific chronic inflammation. B. Gastric antrum, biopsy: Mild chronic gastritis. See comment. C. Distal esophagus, biopsy: Gastroesophageal junctional mucosa with acute and chronic inflammation. Fibrinopurulent material suggestive of ulceration. 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 See comment. D. Terminal ileum, biopsy: No pathologic change. E. Colon, random biopsy: No pathologic change. AM:mona 02/01/2022 COMMENT B. The results of immunohistochemistry for Helicobacter pylori will be reported separately ([id number]). C. Immunohistochemistry ([id number]) for P53 and Ki-67 will be performed and results will be reported separately. Alcian blue/PAS stain with matched control supports the above diagnosis. MICROSCOPIC DESCRIPTION Slides are reviewed. GROSS DESCRIPTION A - Received in fixative is one container labeled with the patient's name and designated duodenum biopsy. The specimen consists of multiple irregular fragments of light krishnamurthy soft tissue that in aggregate measure 1 x 0.5 x 0.1 cm. The specimen is totally submitted in one cassette. B - Received in fixative is one container labeled with the patient's name and designated gastric antrum biopsy. The specimen consists of multiple irregular fragments of light krishnamurthy soft tissue that in aggregate measure 1 x 0.6 x 0.1 cm. The specimen is totally submitted in one cassette. C - Received in fixative is one container labeled with the patient's name and designated distal esophagus biopsy. The specimen consists of multiple irregular fragments of light krishnamurthy soft tissue that in aggregate measure 0.8 x 0.5 x 0.1 cm. The specimen is totally submitted in one cassette. D - Received in fixative is one container labeled with the patient's name and designated terminal ileum biopsy. The specimen consists of multiple irregular fragments of light krishnamurthy soft tissue that in aggregate measure 1 x 0.6 x 0.1 cm. The specimen is totally submitted in one cassette. E - Received in fixative is one container labeled with the patient's name and designated random colon biopsy. The specimen consists of multiple irregular fragments of light krishnamurthy soft tissue that in aggregate measure 2.2 x 1.5 x 0.1 cm. The specimen is totally submitted in one cassette. / AM:mona 01/31/2022 TC:2 CPT: 08540 x5, 60658
--- NOTE | 2022-01-30 12:00 | IMM_PTH ---
PATIENT: LATOYA GARCIA LOC: [facility]AIN U#:[id number] AGE/SX: 31/M ROOM: RE01/30/[address]: Dr. Narendra Cooper DO : 1990 BED: DIS: 01/30/2022 SPEC #: [id number] RECD: 01/31/22 14:05 STATUS: ELVIA ROSALBA #: [id number] CRISTIAN: 01/30/22 12:[address]: Narendra Cooper DEPT: IMMUNOHISTOCHEMISTRY RECD BY: Wilma Gray ENTERED: 01/31/22 14:06 SP TYPE: IMMUNO OTHR DR: Dr. Sandrine Chavez MD Tissues: B - Stomach, NOS C - Esophagus, NOS Procedures: H Pylori (initial) P53 (initial) KI-67 (add) PHYSICIAN & INSTITUTION [place] [id number] SPECIMEN INFORMATION: Tissue Source: B ? Gastric antrum biopsy, C ? Distal esophagus biopsy Clinical Info: Nonspecific colitis, diarrhea Specimen Number: [id number] B & C CPT code: 98755 x2, 69197 METHODOLOGY: Deparaffinized sections of prefer/formalin-fixed tissue or PAP/DQ stained slides are incubated with monoclonal/polyclonal antibodies/oligonucleotide probes. Localization is made via biotin free immunoperoxidase method. Appropriate controls are performed and reacted as expected. Results on target cell population are indicated in the following table: RESULTS: ANTIBODY / CLONE RESULT Block B H Pylori (polyclonal) negative Block C P53 (DO-7) negative Ki-67 (30-9) positive, low These tests were developed and their performance characteristics determined by [facility]. They may not have been cleared or approved by the U.S. Food and Drug Administration. The FDA has determined that such clearance or approval is not necessary. The above immunohistochemical/dualISH markers are ordered and reviewed by the Pathologist. INTERPRETATION: B. Gastric antrum, biopsy: Negative for Helicobacter pylori organisms. C. Distal esophagus, biopsy: No evidence of dysplasia. AM:mona 02/02/2022
--- NOTE | 2022-01-30 13:30 | OP.EGD_ITS ---
Patient Name: Lg Leach Procedure Date: 01/30/2022 12:08 PM Date of : 1990 Age: 31 Procedure: Upper GI endoscopy Indications: Epigastric abdominal pain Providers: Narendra Cooper DO Medicines: See the Anesthesia note for documentation of the administered medications Patient Profile: This is a 31 year old male. Patient has symptoms of chronic abdominal cramping, chronic abdominal distention and chronic epigastric abdominal pain. Complications: No immediate complications. Procedure: Pre-Anesthesia Assessment: - Prior to the procedure, a History and Physical was performed, and patient medications and allergies were reviewed. The patient is competent. The risks and benefits of the procedure and the sedation options and risks were discussed with the patient. All questions were answered and informed consent was obtained. Patient identification and proposed procedure were verified by the physician in the pre-procedure area. Mental Status Examination: alert and oriented. Airway Examination: normal oropharyngeal airway and neck mobility. Respiratory Examination: clear to auscultation. CV Examination: normal. Prophylactic Antibiotics: The patient does not require prophylactic antibiotics. Prior Anticoagulants: The patient has taken no previous anticoagulant or antiplatelet agents. ASA Grade Assessment: II - A patient with mild systemic disease. After reviewing the risks and benefits, the patient was deemed in satisfactory condition to undergo the procedure. The anesthesia plan was to use moderate sedation / analgesia (conscious sedation). Immediately prior to administration of medications, the patient was re-assessed for adequacy to receive sedatives. The heart rate, respiratory rate, oxygen saturations, blood pressure, adequacy of pulmonary ventilation, and response to care were monitored throughout the procedure. The physical status of the patient was re-assessed after the procedure. After obtaining informed consent, the endoscope was passed under direct vision. Throughout the procedure, the patient's blood pressure, pulse, and oxygen saturations were monitored continuously. The colonoscope was introduced through the mouth, and advanced to the second part of duodenum. The upper GI endoscopy was accomplished without difficulty. The patient tolerated the procedure well. Moderate Sedation: Moderate (conscious) sedation was administered by the endoscopy nurse and supervised by the endoscopist. The patient's oxygen saturation, heart rate, blood pressure and response to care were monitored. Total physician intraservice time was 15 minutes. Scope In: 12:55:19 PM Scope Out: 1:02:49 PM Total Procedure Duration Time 0 hours 7 minutes 30 seconds Findings: LA Grade A (one or more mucosal breaks less than 5 mm, not extending between tops of 2 mucosal folds) esophagitis with no bleeding was found 36 to 38 cm from the incisors. Biopsies were taken with a cold forceps for histology. Verification of patient identification for the specimen was done. Estimated blood loss was minimal. Patchy mildly erythematous mucosa without bleeding was found in the gastric antrum. Biopsies were taken with a cold forceps for histology. Verification of patient identification for the specimen was done. Estimated blood loss was minimal. Patchy mildly erythematous mucosa without active bleeding and with no stigmata of bleeding was found in the duodenal bulb. Impression: - LA Grade A reflux esophagitis. Biopsied. - Erythematous mucosa in the antrum. Biopsied. - Erythematous duodenopathy. Recommendation: - Discharge patient to home. - Resume previous diet. - Continue present medications. - Await pathology results. Procedure Code(s): --- Professional --- 22352, Esophagogastroduodenoscopy, flexible, transoral; with biopsy, single or multiple 77800, 59, Moderate sedation services provided by the same physician or other qualified health reservoir caretaker performing the diagnostic or therapeutic service that the sedation supports, requiring the presence of an independent trained observer to assist in the monitoring of the patient's level of consciousness and physiological status; initial 15 minutes of intraservice time, patient age 5 years or older CPT copyright 2017 [employer]. All rights reserved. The codes documented in this report are preliminary and upon production support specialist review may be revised to meet current compliance requirements. Narendra Cooper DO 01/30/2022 1:29:43 PM This report has been signed electronically. Number of Addenda: 1 Note Initiated On: 01/30/2022 12:08 PM Addendum Number: 1 Addendum Date: 08/15/2022 6:29:43 AM MAC was used as sedation for this procedure. Narendra Cooper DO 08/15/2022 6:29:47 AM This report has been signed electronically.
--- NOTE | 2022-01-30 13:31 | OP.CCLET_ITS ---
08/15/2022 Sandrine Chavez MD [address] [place] [address] [place] [address] Re : Upper GI endoscopy procedure for Lg Leach Dear Dr. Chavez This procedure was performed on Sunday, January 30, 2022. My impressions and recommendations are as follows: Impressions : - LA Grade A reflux esophagitis. Biopsied. - Erythematous mucosa in the antrum. Biopsied. - Erythematous duodenopathy. Recommendations : - Discharge patient to home. - Resume previous diet. - Continue present medications. - Await pathology results. My findings are described in the full procedure note, which is enclosed. If I can be of further assistance, please feel free to contact me at . Sincerely, Narendra Friend, 01/30/2022 1:29:43 PM This report has been signed electronically.
--- NOTE | 2022-01-30 13:37 | OP.COLON_ITS ---
Patient Name: Lg Leach Procedure Date: 01/30/2022 1:03 PM Date of : 1990 Age: 31 Procedure: Colonoscopy Indications: Clinically significant diarrhea of unexplained origin Providers: Narendra Cooper DO Medicines: See the Anesthesia note for documentation of the administered medications Patient Profile: This is a 31 year old male. Patient has symptoms of chronic abdominal cramping, chronic abdominal distention and chronic epigastric abdominal pain. Last Colonoscopy: none. The patient's first colonoscopy is today. Complications: No immediate complications. Procedure: Pre-Anesthesia Assessment: - Prior to the procedure, a History and Physical was performed, and patient medications and allergies were reviewed. The patient is competent. The risks and benefits of the procedure and the sedation options and risks were discussed with the patient. All questions were answered and informed consent was obtained. Patient identification and proposed procedure were verified by the physician in the pre-procedure area. Mental Status Examination: alert and oriented. Airway Examination: normal oropharyngeal airway and neck mobility. Respiratory Examination: clear to auscultation. CV Examination: normal. Prophylactic Antibiotics: The patient does not require prophylactic antibiotics. Prior Anticoagulants: The patient has taken no previous anticoagulant or antiplatelet agents. ASA Grade Assessment: II - A patient with mild systemic disease. After reviewing the risks and benefits, the patient was deemed in satisfactory condition to undergo the procedure. The anesthesia plan was to use moderate sedation / analgesia (conscious sedation). Immediately prior to administration of medications, the patient was re-assessed for adequacy to receive sedatives. The heart rate, respiratory rate, oxygen saturations, blood pressure, adequacy of pulmonary ventilation, and response to care were monitored throughout the procedure. The physical status of the patient was re-assessed after the procedure. After I obtained informed consent, the scope was passed under direct vision. Throughout the procedure, the patient's blood pressure, pulse, and oxygen saturations were monitored continuously. The colonoscope was introduced through the anus and advanced to the terminal ileum. The colonoscopy was performed without difficulty. The patient tolerated the procedure well. The quality of the bowel preparation was good. Moderate Sedation: Moderate (conscious) sedation was administered by the endoscopy nurse and supervised by the endoscopist. The patient's oxygen saturation, heart rate, blood pressure and response to care were monitored. Total physician intraservice time was 15 minutes. Scope In: 1:06:05 PM Scope Withdrawal Time 0 hours 13 minutes 38 seconds Scope Out: 1:22:17 PM Total Procedure Duration Time 0 hours 16 minutes 12 seconds Findings: The perianal and digital rectal examinations were normal. An area of mildly congested mucosa was found in the sigmoid colon, in the descending colon, at the splenic flexure and at the hepatic flexure. Biopsies were taken with a cold forceps for histology. Verification of patient identification for the specimen was done. Estimated blood loss was minimal. A patchy area of the terminal ileum was congested. Biopsies were taken with a cold forceps for histology. Verification of patient identification for the specimen was done. Estimated blood loss was minimal. Impression: - Congested mucosa in the sigmoid colon, in the descending colon, at the splenic flexure and at the hepatic flexure. Biopsied. - Congested mucosa in the terminal ileum. Biopsied. Recommendation: - Discharge patient to home. - Resume previous diet. - Continue present medications. - Await pathology results. - Repeat colonoscopy is recommended to check healing. The colonoscopy date will be determined after pathology results from today's exam become available for review. Procedure Code(s): --- Professional --- 08398, Colonoscopy, flexible; with biopsy, single or multiple 51347, 59, Moderate sedation services provided by the same physician or other qualified health home care rn performing the diagnostic or therapeutic service that the sedation supports, requiring the presence of an independent trained observer to assist in the monitoring of the patient's level of consciousness and physiological status; initial 15 minutes of intraservice time, patient age 5 years or older CPT copyright 2017 [employer]. All rights reserved. The codes documented in this report are preliminary and upon medical billing coder review may be revised to meet current compliance requirements. Narendra Cooper DO 01/30/2022 1:36:16 PM This report has been signed electronically. Number of Addenda: 1 Note Initiated On: 01/30/2022 1:03 PM Addendum Number: 1 Addendum Date: 08/15/2022 6:29:54 AM MAC was used as sedation for this procedure. Narendra Cooper DO 08/15/2022 6:29:58 AM This report has been signed electronically.
--- NOTE | 2022-01-30 13:38 | OP.CCLET_ITS ---
08/15/2022 Sandrine Chavez MD [address] [place] [address] [place] [address] Re : Colonoscopy procedure for Lg Leach Dear Dr. Chavez This procedure was performed on Sunday, January 30, 2022. My impressions and recommendations are as follows: Impressions : - Congested mucosa in the sigmoid colon, in the descending colon, at the splenic flexure and at the hepatic flexure. Biopsied. - Congested mucosa in the terminal ileum. Biopsied. Recommendations : - Discharge patient to home. - Resume previous diet. - Continue present medications. - Await pathology results. - Repeat colonoscopy is recommended to check healing. The colonoscopy date will be determined after pathology results from today's exam become available for review. My findings are described in the full procedure note, which is enclosed. If I can be of further assistance, please feel free to contact me at . Sincerely, Narendra Cooper, 01/30/2022 1:36:16 PM This report has been signed electronically.
== END 2022-01-30 23:59 | disposition home or self-care (01) ==
LOC: EN 10:58 → AC 10:59
PROVIDERS: PCP Internal Medicine; Referring Provider Internal Medicine Gastroenterology; Visit Provider Internal Medicine Gastroenterology
PROC: 0DJD8ZZ Inspection of Lower Intestinal Tract, Via Natural or Artificial Opening Endoscopic (ICD-10-PCS; CPT 45378; principal; 2022-01-30 11:55)
DX: K21.00 Gastro-esophageal reflux disease with esophagitis, without bleeding (principal); K31.89 Other diseases of stomach and duodenum; K22.70 Barrett's esophagus without dysplasia; K29.50 Unspecified chronic gastritis without bleeding; K52.9 Noninfective gastroenteritis and colitis, unspecified; F17.210 Nicotine dependence, cigarettes, uncomplicated; Z20.822 Contact with and (suspected) exposure to COVID-19
CPT/HCPCS: 45380; 43239; 87426; 88305; 88313; 88341; 88342; C9803; J7120